=== PATIENT | female | born 1965 | race Caucasian/White ===

== ENCOUNTER 2019-07-12 21:23 | Observation (INO) ==
[2019-07-12] MEDS ORDERED: *HR* Dextrose 50 % in Water (Syg) 50 ML SYRINGE IVP PRN (23:48)
[2019-07-12] MEDS ORDERED: Dextrose Gel 15 GM/37.5 ML TUBE PO PRN ×2 (23:48)
--- NOTE | 2019-07-13 00:25 | Internal Med History&Physical ---
Date of Encounter: 07/12/19 Time of Encounter: 23:59 Internal Medicine - H&P: HPI Chief complaint: ams Admitted From: Hospital to Hospital Transfer Plans for Post Hospital Care: at Medical Facility History of present illness: Information obtained from chart review and discussion with the initial healthcare provider as the patient is unresponsive and there are no family members present at this time. Belinda Pisano is a 53-year-old obese woman diabetes who was taken to [facility] emergency room for altered mental status. It is reported that a neighbor called EMS after noticing the patients sitting outside on her porch and just staring blankly into space. Apparently she was able to articulate that she did not feel well to the squad. Glycemia at that time was 110. No other complaints were giv en. On arrival to the ER she apparently looked well but was staring blankly and had a sluggish response. She was able to follow commands to squeeze fingers and wiggle her toes and could lift her arms and legs off the bed. She was unable to state what problem she was having however. Her mother arrived shortly after who mentioned that she has a complex regional pain syndrome and diabetes but no other healthcare issues that she was aware of. The patient arrived here as a Caitlin Albright therefore her chart is different from the current one which is only been established after obtaining her name. Her lab work and medical report is in the previous chart with . Lab work done there was grossly unremarkable except a leukocyte count of 13.1. Her ABG was within normal limits per carb year or hypoxia. Serum chemistry was notable for serum creatinine of 2.68 which on review of old records is seen to be an elevation from her baseline. Her LFTs, serum troponin, creatinine kinase, ammonia and glucose were within normal limits. Her urine analysis was benign and toxicology screen was negative. Head CT showed no acute findings and her chest x-ray was clear. She was transferred here for ongoing care. At the time of my assessment she is sleeping in bed and not responsive. She opens her eyes spontaneously without stimuli and moans when palpated firmly but otherwise does not talk or follow commands. Vitals: Reviewed and seen to be within normal limits General: Obese white woman lying in bed in no acute distress. Skin: Warm and dry. HEENT: Dry mucous membranes. No conjunctivae pallor. Neck: No lymphadenopathy. No JVD. No carotid bruits. No palpable thyroid. Chest: Normal thoracic expansion. Normal breath sounds. Clear to auscultation. Heart: Normal S1 & S2; rhythmic. Grade 4/6 crescendo decrescendo systolic murmur in the right upper sternal border. Abdomen: Obese, soft and no apparent tenderness to palpation. Extremities: No clubbing, cyanosis or edema. No calf tenderness. Normal distal pulses. Neurological: Unresponsive. Unable to assess for focal deficits. Psych: Unresponsive. Assessment/Plan 1. Altered mental status: The etiology is unclear. We have ruled out a toxic metabolic syndrome based on labs obtained thus far. No evidence of hypercarbia or hypoxia. Unclear if she has suffered a cerebrovascular event or if this is a seizure disorder with a post-ictal state or if this is a psychiatric problem. It is unclear what home medications she takes as this could be a hopeful component. We will continue to observe her and monitor her clinically. Place on fall and seizure precautions. We will obtain a brain MRI in the morning and neurology consultation for further recommendations. When mother comes in the morning, further history should be obtained. 2. Acute kidney injury: Fluid resuscitation has been started and will recheck BMP in the morning. She appears dry on physical exam. 3. Systolic murmur: We will obtain an echo for evaluation of the degree of aortic valve stenosis. 4. Diabetes: She has very poor control with an A1C of 11.5% in January of this year. She will remain on Accu-Cheks with insulin sliding scale. 5. Obesity: She has evidence of SANDI as I note her snoring and apneic episodes. She will benefit from weight loss. Unclear if she uses CPAP at home. Past Med Surg Social Fam HX - Past Medical History Medical history: diabetes, hyperlipidemia, hypertension, seizures, other Additional medical history: CRPS Psychiatric history: depression - Past Surgical History Additional surgical history: Right wrist sx x 3. tubal ligation. heart cath no stents. left ulnar nerve release - Social History Smoking Status: Current every day smoker Smokeless Tobacco Status: No Alcohol use: none Drug use: none Internal Medicine - H&P: Meds Lisinopril [Zestril] 40 mg PO DAILY 08/27/15 [History] Metformin [Glucophage] 1,000 mg PO BID 08/27/15 [History] Ascorbate Calcium [Vitamin C] 500 mg PO DAILY 01/02/17 [History] Calcium Carbonate/Vitamin D3 [Calcium 600+D Softgel] 1 each PO DAILY 01/02/17 [History] Cholecalciferol (Vitamin D3) [Vitamin D] 50,000 unit PO TU 01/02/17 [History] Cinnamon Bark [Cinnamon] 500 mg PO BID 01/02/17 [History] [place]-3/Dha/Epa/Fish Oil [Fish Oil 1,000 mg Softgel] 1 each PO DAILY 01/02/17 [History] Topiramate [Topamax] 200 mg PO BID 01/02/17 [History] Vitamin B Complex [B Complex] 1 each PO DAILY 01/02/17 [History] Gabapentin [Neurontin] 800 mg PO TID 10/16/17 [History] Ketamine 500 mg IV 10/16/17 [History] Montelukast [Singulair] 10 mg PO DAILY 10/16/17 [History] OxyCODONE/APAP 10/325 [Percocet 10/325 MG] 1 each PO Q4HR PRN 10/16/17 [History] Exenatide Microspheres [Bydureon Pen] 0.75 mg SQ QWEEK 03/03/19 [History] Allergy/AdvReac Type Severity Reaction Status Date / Time bupropion [From Wellbutrin] AdvReac Seizure Verified 09/12/18 10:26 latex AdvReac See Verified 10/16/17 11:12 Comments All Systems PM: A 10-system review of systems was performed and is negative for pertinent findings except as documented above in the HPI. Family history unable to be obtained due to mental status. - Constitutional Vitals: Temp Pulse Resp BP Pulse Ox 97.7 F 72 17 104/67 95 07/12/19 23:58 07/12/19 23:58 07/12/19 23:58 07/12/19 23:58 07/12/19 23:58 Exam: . - Time Spent With Patient Total time spent is greater than 50% in coordination of care (as documented) at patient's floor/unit and/or counseling patient:
[2019-07-13] MEDS: Ringers Solution, Lactated 1,000 ML IVC SCH ×2 (01:43→07:19)
[2019-07-13] MEDS: Insulin LISPRO 300 UNITS/3 ML VIAL SQ SCH ×4 (01:46→18:05)
[2019-07-13 04:01] LABS: Basophils # 0.1 K/mcL (0.0-0.2); Basophils % 0.4 %; Eosinophils # 0.2 K/mcL (0.0-0.6); Eosinophils % 1.6 %; Hematocrit 38.8 % (35.3-44.9); Hemoglobin 12.5 g/dL (11.5-15.4); Immature Granulocytes % 0.5 % (0-4); Lymphocytes # 5.1 K/mcL (0.6-4.6); Lymphocytes % 39.7 %; Mean Corpuscular HGB Conc 32.2 g/dL (31.6-35.5); Mean Corpuscular Hemoglobin 28.9 pg (28.0-33.3); Mean Corpuscular Volume 89.8 fL (83.0-100.0); Mean Platelet Volume 10.1 fL (9.4-12.4); Monocytes # 0.6 K/mcL (0.0-1.3); Neutrophils # 6.8 K/mcL (1.6-8.9); Platelet Count 231 K/mcL (140-400); Red Blood Count 4.32 M/mcL (3.82-4.97); Red Cell Distribution Width 13.8 % (11.5-14.5); Segmented Neutrophils % 52.8 %; White Blood Count 12.9 K/mcL (4.3-11.1)
[2019-07-13 04:03] LABS: VBG HCO3 24 mEq/L (21-27); VBG PCO2 50 mmHg (41-51); VBG PO2 83 mmHg (25-50)
[2019-07-13 04:20] LABS: Calcium 9.2 mg/dL (8.6-10.3); Magnesium 1.6 mg/dL (1.6-2.6); Phosphorous 6.8 mg/dL (2.7-4.5); Potassium 4.4 mEq/L (3.5-5.1)
--- NOTE | 2019-07-13 09:10 | Internal Med Progress Note ---
Hospitalist Progress Note - Encounter Date of Encounter: 07/13/19 Time of Encounter: 09:09 - Subjective Interval History: Patient was seen and examined at bedside notified per nursing staff the patient had seizure-like activity this a.m. and was incontinent of stool patient does not appear to be post ictal she is able to open eyes and answer yes - Exam Vitals: Temp Pulse Resp BP Pulse Ox 97.8 F 69 20 122/74 94 07/13/19 08:26 07/13/19 08:26 07/13/19 08:26 07/13/19 08:26 07/13/19 08:26 Exam: Skin: Free of rash and discoloration. Eyes: Sclera is white. There is no discharge from eyes. ENMT: Oral/pharyngeal mucosa is normal in appearance. There is no discharge from nose or ears. Respiratory: Normal breath sounds with no crackles and wheezes bilaterally. CV: Heart is regular with no gallop or murmur. GI: Abdomen is flat and soft with no palpable mass or visceromegaly. : There is no tenderness in patient's flanks bilaterally. Neuro exam: Opens eyes to command and answers yes does not follow any other commands Psychiatric: Flat affect and makes brief eye contact - Assessment and Plan (1) Acute kidney injury superimposed on chronic kidney disease Current Visit: Yes Status: Acute Assessment and Plan: Creatinine elevated today at 3.45-she has a history CKG stage III Baseline creatinine is around 1.3- suspect this is secondary to dehydration we will continue with IV fluids Nephrology has been consulted and appreciate recommendations We will obtain renal ultrasound Monitor intake and output daily weights Avoid nephrotoxins (2) Diabetes mellitus Current Visit: No Status: Chronic Assessment and Plan: Accu-Cheks before meals and at bedtime with sliding scale insulin and hold oral medications for now monitor glucose closely (3) Encephalopathy Current Visit: Yes Status: Acute Assessment and Plan: Suspect this may be medical and etiology -multifactoral including AK I polypharmacy seizures. Patient did have a urine tox screen which was negative-we will check serum as well as dopamine levels patient is on high dose and the Topamax We will obtain MRI as well as EEG CT of head was negative Urinalysis Nephrology has been consulted and we will continue with IV fluids Allergies has been consulted and appreciate recommendations (4) Hyperphosphatemia Current Visit: Yes Status: Acute Assessment and Plan: We will continue to monitor (5) Hypertension Current Visit: Yes Status: Acute Assessment and Plan: Allow permissive hypertension for possible CVA-hold antihypertensives for now continue with IV fluids (6) Seizure Current Visit: Yes Status: Acute Assessment and Plan: Patient does have a history of seizure activity on Topamax we will check Topimate level Seizure precautions EEG MRI Neurology consulted - Time Spent with Patient Total time spent is greater than 50% in coordination of care (as documented) at patient's floor/unit and/or counseling patient: Internal Medicine: Result - Labs CBC & Chem 7: 07/13/19 03:50 07/13/19 03:50 Labs: Short CBC 07/13/19 Range/Units 03:50 WBC 12.9 H (4.3-11.1) K/mcL Hgb 12.5 (11.5-15.4) g/dL Hct 38.8 (35.3-44.9) % Plt Count 231 (140-400) K/mcL Neutrophils # 6.8 (1.6-8.9) K/mcL BMP 07/13/19 03:50 Sodium 141 Potassium 4.4 Chloride 106 Carbon Dioxide 24 BUN 40 H Creatinine 3.45 H Glucose 94 Calcium 9.2 Consult Discharge Plan - Plan Referrals: Rajni Levy, MANAGER PRODUCT SUPPORT [Primary Care Provider] - (2) Diabetes mellitus Qualifiers: Diabetes mellitus type: type 2 Diabetes mellitus longterm insulin use: without intermediate designer use Diabetes mellitus complication status: with kidney complications Diabetes mellitus complication detail: with chronic kidney disease (5) Hypertension Qualifiers: Hypertension type: essential hypertension Qualified Code(s): I10 - Essential (primary) hypertension
[2019-07-13 09:41] LABS: Thyroid Stimulating Hormone 2.62 mcIU/mL (0.340-5.600)
--- NOTE | 2019-07-13 10:16 | Nephrology Consult Note ---
Date of Encounter: 07/13/19 Time of Encounter: 10:14 Assessment and Plan (1) Acute kidney injury superimposed on chronic kidney disease Current Visit: Yes Status: Acute Patient has acute kidney injury superimposed on chronic kidney disease. Etiology is not clear as we do not have a history, but is likely volume related. I agree with aggressive hydration. I recommend checking a creatinine kinase to ensure that she does not have rhabdomyolysis. Renal ultrasound has been ordered. Serologic workup has been ordered as well as a urinalysis. At the time my evaluation she does not need dialysis. She does not have an anion gap. I recommend avoiding nephrotoxic agents and adjusting medication for renal function. Thank you for this interesting consult we will follow with you. (2) Encephalopathy Current Visit: Yes Status: Acute Etiology is unclear. Primary team has ordered a neurology consult. Additional workup to evaluate for other etiologies has also been ordered. Patient does have a history of seizures and it is possible that she had a seizure that was prolonged. If a drug test has not been performed and I recommend performing those as well. (3) Hyperphosphatemia Current Visit: Yes Status: Acute Monitor for now. (4) Diabetes mellitus Current Visit: Yes Status: Acute Defer to primary team. It appears that her previous hemoglobin A1c was elevated. Qualifiers: Qualified Code(s): E11.9 - Type 2 diabetes mellitus without complications (5) Hypertension Current Visit: Yes Status: Acute Titrate blood pressure medication as needed. Qualifiers: Qualified Code(s): I10 - Essential (primary) hypertension (6) Seizure Current Visit: Yes Status: Acute Per primary team and neurology. History of Present Illness - Reason for Consult Consult date: 07/13/19 Acute Kidney Injury, Chronic Kidney Disease - Chief Complaint anatoliy/ckd - History of Present Illness Ms. Pisano is a 53 -year-old woman with a history of chronic kidney disease who presented as a Caitlin Albright and was down. Later she was identified by family member. At the time my evaluation the patient only responds "yeah" to questions. Her review of systems is unobtainable.. When I asked him to take a deep breath she will follow the command. For additional details about her admission please refer to the admission H&P as the patient is unable to provide any additional history. Past Med Surg Social Fam HX - Past Medical History Medical history: diabetes, hyperlipidemia, hypertension, seizures, other Additional medical history: CRPS Psychiatric history: depression - Past Surgical History Additional surgical history: Right wrist sx x 3. tubal ligation. heart cath no stents. left ulnar nerve release - Social History Smoking Status: Current every day smoker Smokeless Tobacco Status: No Alcohol use: none Drug use: none Medications and Allergies Lisinopril [Zestril] 40 mg PO DAILY 08/27/15 [History] Metformin [Glucophage] 1,000 mg PO BID 08/27/15 [History] Ascorbate Calcium [Vitamin C] 500 mg PO DAILY 01/02/17 [History] Calcium Carbonate/Vitamin D3 [Calcium 600+D Softgel] 1 each PO DAILY 01/02/17 [History] Cholecalciferol (Vitamin D3) [Vitamin D] 50,000 unit PO TU 01/02/17 [History] Cinnamon Bark [Cinnamon] 500 mg PO BID 01/02/17 [History] [place]-3/Dha/Epa/Fish Oil [Fish Oil 1,000 mg Softgel] 1 each PO DAILY 01/02/17 [History] Topiramate [Topamax] 200 mg PO BID 01/02/17 [History] Vitamin B Complex [B Complex] 1 each PO DAILY 01/02/17 [History] Gabapentin [Neurontin] 800 mg PO TID 10/16/17 [History] Ketamine 500 mg IV 10/16/17 [History] Montelukast [Singulair] 10 mg PO DAILY 10/16/17 [History] OxyCODONE/APAP 10/325 [Percocet 10/325 MG] 1 each PO Q4HR PRN 10/16/17 [History] Exenatide Microspheres [Bydureon Pen] 0.75 mg SQ QWEEK 03/03/19 [History] Allergy/AdvReac Type Severity Reaction Status Date / Time bupropion [From Wellbutrin] AdvReac Seizure Verified 09/12/18 10:26 latex AdvReac See Verified 10/16/17 11:12 Comments Review of Systems ROS unobtainable: due to mental status Exam - Vital Signs Vital signs: Initial Vital Signs Temp Pulse Resp BP Pulse Ox 97.7 F 72 17 104/67 95 07/12/19 23:58 07/12/19 23:58 07/12/19 23:58 07/12/19 23:58 07/12/19 23:58 Vital Signs - Last 8 Hours Temp Pulse Resp BP Pulse Ox 07/13/19 08:26 97.8 F 69 20 122/74 94 07/13/19 06:34 98.6 F 75 18 101/71 98 07/13/19 03:19 98.1 F 72 16 99/64 97 Intake and Output 07/12/19 07/13/19 07/13/19 23:59 07:59 15:59 Intake Total 1000 / 1000 Balance 1000 / 1000 Intake: IV Fluids 1000 / 1000 Lactated Ringers 1,000 ML @ 200 1000 / 1000 mls/hr IVC .Q5H [facility] Rx#: [id number] Other: Stool Size Small Stool Consistency soft Stool Color Brown # Bowel Movements 1 Weight 125 kg 125 kg Blood Glucose* 111 119 Patient Weight 07/13/19 23:59 Weight 125 kg - General Appearance General appearance: well-developed, well-nourished, obese EENT: ATNC Neck: supple Respiratory: clear Cardiology: no edema, regular rate Gastrointestinal: no tenderness, obese Integumentary: warm and dry Additional Comments: She only responds "yeah" to my questions Musculoskeletal: no cyanosis Psychiatric: mood/affect appropriate Results - Lab Results 07/13/19 03:50 07/13/19 03:50 Most recent lab results 07/13/19 07/13/19 03:50 03:50 Calcium 9.2 Phosphorus 6.8 H Magnesium 1.6 Consult Discharge Plan - Plan Referrals: Rajni Levy, COMPACTING MACHINE OPERATOR/TENDER [Primary Care Provider] -
[2019-07-13 10:27] LABS: ABG Base Excess -2 mEq/L (-2 to 3); ABG HCO3 24 mEq/L (21-27); ABG Oxygen Saturation 95 % (95-98); ABG PCO2 45 mmHg (35-45); ABG PH 7.33 pH Units (7.32-7.45); ABG PO2 82 mmHg (85-104); ABG TCO2 26 mEq/L (20-26)
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
[2019-07-13] MEDS: Aspirin 81 MG TAB.CHEW PO SCH (18:04)
[2019-07-14 02:33] LABS: Complement C3 164 mg/dL (87-200)
[2019-07-14] MEDS: Insulin LISPRO 300 UNITS/3 ML VIAL SQ SCH ×5 (04:52→23:57)
[2019-07-14] MEDS: Aspirin 81 MG TAB.CHEW PO SCH (08:11)
[2019-07-14 08:23] LABS: Estimated Average Glucose 169 mg/dl
--- NOTE | 2019-07-14 08:25 | Neurology Progress Note ---
Date of Encounter: 07/14/19 Time of Encounter: 11:03 Assessment and Plan (1) Encephalopathy Current Visit: Yes Status: Acute Resolved. Likely related to encephalopathy secondary to medical conditions, especially acute renal failure, may have also underlying depression and is currently on polypharmacy including psychotrophic medications and pain meds. - Neurological examination not consistent with acute FLAT HAMMERER pathology. - Does have seizure disorder for few years and could have postictal pehnomenon however, presentation not typical for postictal phenomenon which usually do not last more than 30 minutes. - Would like to obtain MRI of brain and TIA/CVA work up, including echo and carotid artery duplex study. - Patient hyperglycemia which can increase the risk of microembolic CVA/partial seizures. - Continue aspirin 81mg daily for now Further recommendations pending per results of MRI and EEG. Suspect that her symptoms are more likely due to metabolic process, possible acute renal failure. If she continues to demonstrate epileptiform activity, can consider depakote change of medication, however given that this is not as likely contributing, recommend continuing home topiramate and follow up with outpatient neurologist. (2) Seizure Current Visit: Yes Status: Chronic Known history of seizure occurred during 2015. Etiology unclear. Last seziure of June 2018. Been taking Topiramate high dose at 300mg bid and still has seizures. Reports increased dose to TID starting on Sunday prior to admission. This can be aggravated by ongoing hyperglycemia and renal failure. Patient also take lyrica 100mg bid which is also antiepileptic. Would like to continue on the combination and obtain EEG, MRI of brain without contrast and topiramate level. Please continue medical and supportive care Subjective Principal diagnosis: Altered mental status Interval history: Patient was seen and examined at bedside this morning. She reports that she is feeling much better. She still does not remember the events leading up to admission. She states that she was feeling well prior to admission and has never had this before. She does have a history of seizures but states this is different. Recent medication change of increasing topiramate on day of admission. Chronic pain on percocet and lyrica. Objective - Constitutional Vitals: Temp Pulse Resp BP Pulse Ox 98.2 F 79 15 107/71 96 07/14/19 07:13 07/14/19 07:13 07/14/19 07:13 07/14/19 07:13 07/14/19 07:13 General appearance: Present: cooperative, A&O X 3, pleasant, no acute distress - Neurological Exam Sensorimotor examination: Present: intact Motor Examination: Present: grossly full strength in all extremities Sensation intact: Present: intact Posture: Present: other (None) Reflex and gait examination: other (Gait not tested) Mental Status Examination: Present: awake, alert, oriented to person, oriented to place, oriented to time, follows commands appropriately, answers questions appropriately, no agnosia, no aphasia, no aproxia Cranial nerve examination: Present: PERRL, EOMI, corneal reflexes brisk symmetrically, sensory to face intact, no facial asymmetry is present, no dysarthria, hearing is intact symmetrically, flexes SCM and trapezius muscles symmetrically with full power, tongue protrudes midline Cerebellar examination: Present: no dysmetria, performs finger to nose and heel to french symmetrically without ataxia Results - Laboratory Findings CBC and BMP: 07/14/19 08:28 07/14/19 08:28 Abnormal lab findings: Abnormal lab results WBC 12.9 K/mcL (4.3-11.1) H 07/13/19 03:50 Lymphocytes # 5.1 K/mcL (0.6-4.6) H 07/13/19 03:50 ABG pO2 82 mmHg (85-104) L 07/13/19 10:22 VBG pH 7.30 pH Units (7.32-7.42) L 07/13/19 04:01 VBG pO2 83 mmHg (25-50) H 07/13/19 04:01 BUN 40 mg/dL (6-20) H 07/13/19 03:50 Creatinine 3.45 mg/dL (0.60-1.20) H 07/13/19 03:50 Est GFR ( Amer) 17 (> 60) L 07/13/19 03:50 Est GFR (Non-Af Amer) 14 (> 60) L 07/13/19 03:50 POC Glucose 138 mg/dL (70-99) H 07/14/19 05:56 Hemoglobin A1c 7.5 % (-5.6) H 07/14/19 01:42 Serum Osmolality 304 mOsm/kg (280-300) H 07/13/19 09:56 Calculated Osmolality 302 (280-300) H 07/13/19 03:50 Lactic Acid 2.4 mmol/L (0.5-2.2) H 07/13/19 09:56 Phosphorus 6.8 mg/dL (2.7-4.5) H 07/13/19 03:50 Creatine Kinase 914 Units/L (30-223) H 07/14/19 01:42 Vitamin B12 182 pg/mL (250-1100) L 07/13/19 09:56 Consult Discharge Plan - Plan Referrals: Rajni Levy CNP [Primary Care Provider] -
[2019-07-14 08:53] LABS: Basophils % 0.4 %; Eosinophils # 0.2 K/mcL (0.0-0.6); Eosinophils % 1.6 %; Hematocrit 39.3 % (35.3-44.9); Hemoglobin 12.6 g/dL (11.5-15.4); Immature Granulocytes % 0.4 % (0-4); Lymphocytes # 3.6 K/mcL (0.6-4.6); Lymphocytes % 33.8 %; Mean Corpuscular HGB Conc 32.1 g/dL (31.6-35.5); Mean Corpuscular Hemoglobin 28.6 pg (28.0-33.3); Mean Corpuscular Volume 89.1 fL (83.0-100.0); Monocytes # 0.6 K/mcL (0.0-1.3); Monocytes % 5.8 %; Neutrophils # 6.2 K/mcL (1.6-8.9); Platelet Count 232 K/mcL (140-400); Red Blood Count 4.41 M/mcL (3.82-4.97); Red Cell Distribution Width 13.5 % (11.5-14.5); White Blood Count 10.6 K/mcL (4.3-11.1)
[2019-07-14 09:11] LABS: Calcium 9.2 mg/dL (8.6-10.3); Potassium 4.2 mEq/L (3.5-5.1)
--- NOTE | 2019-07-14 09:27 | Nephrology Progress Note ---
Date of Encounter: 07/14/19 Time of Encounter: 08:50 (Time guessed) - Assessment and Plan (1) CKD (chronic kidney disease), stage III Current Visit: Yes Status: Acute (2) Metabolic acidosis Current Visit: Yes Status: Acute (3) Rhabdomyolysis Current Visit: Yes Status: Suspected (4) Acute kidney injury superimposed on chronic kidney disease Current Visit: Yes Status: Acute (5) Encephalopathy Current Visit: Yes Status: Acute (6) Hyperphosphatemia Current Visit: Yes Status: Acute (7) Seizure Current Visit: Yes Status: Chronic (8) Diabetes mellitus Current Visit: Yes Status: Chronic Qualifiers: Diabetes mellitus type: type 2 Diabetes mellitus nursing home insulin use: without nursing home use Diabetes mellitus complication status: with kidney complications Diabetes mellitus complication detail: with chronic kidney disease Qualified Code(s): E11.22 - Type 2 diabetes mellitus with diabetic chronic kidney disease Subjective Interval history: Subjective Some elements from chart review Ms. Phyllis Pisano is a 53-year-old female who presented to the [facility] ED on 07/13 for AMS. This ED encounter is under . Past medical history: CKD stage III, diabetes mellitus, she denies hypertension and does not know why she is on lisinopril, hyperlipidemia, seizure disorder, complex regional pain syndrome. The last thing she remembers before being in this hospital is opening her door at home and talking to and paying an acquaintance Pooja for clothes another various wares. Only medication change was a newly increased dose of topiramate which she took 3 times a day instead of 2 times a day prior to this episode. Renal history from the patient Has seen Dr. Comer since around [id number]. She was originally stage IV and more recently stage III. Tells me that they believe the cause of her chronic kidney disease was potentially Percocets or Lyrica. She has had diabetes since 2013. Denies using any other analgesics such as ibuprofen. She says that all she will take for additional pain is Tylenol and has not even used that recently. Denies recent antibiotic use. Mentions difficulty with urination in the past that has recently improved. Denies dialysis, kidney transplants. Has both her kidneys. Denies significant dehydration or change in activities. It was a usual morning for her. Intake: Estimates approximately 5-6 bottles of water per day plus one strawberry lemonade drink. Output: States she urinates a lot because of her water pill. Objective PE Gen.: Middle-aged female. No acute distress Skin: Good turgor Eyes: Moist. Anicteric Cardiac: S1, S2. At least 3/6 systolic murmur. Respiratory: Very diminished lung sounds. Crackles in the right base Abdomen: Not diffusely tender. Obese Extremities: Capillary refill less than 2 seconds bilateral upper extremities. Some swelling of right lower extremity which patient states is normal for her. Nonpitting bilaterally. Neuro: Alert to person, place, month and year. No obvious tremor. Psych: Answers questions coherently. Some anxiousness A/P #DAMEON Consider secondary to renal hypoperfusion. Doubt postrenal secondary to history. Complement 3 and 4 WNL on 07/14. Rheumatoid factor WNL on 07/14. Creatinine initially 2.68 > 3.45 from baseline of around 1.3. CK 07/14 914 -With fluid therapy creatinine has improved as of 07/14 -2 L isotonic saline -Renal ultrasound pending -Repeat urinalysis pending -Urine protein to creatinine ratio pending #Chronic kidney disease stage III GFR baseline in the low 40s -Estimated GFR 22 -Avoid nephrotoxins -Renal dosing of medications #High anion gap Metabolic Acidosis Consider secondary to elevated lactic acid Initial ABG showed CO2 46 and pH 7.33 with anion gap of 15. Suggested metabolic acidosis with concomitant metabolic alkalosis -Gap Resolved #Hyperphosphatemia Possibly some component of secondary hyperparathyroidism in the setting of CKD. Also consider rhabdomyolysis. Phosphorous 6.8 on 07/13 Calcium WNL 07/13 -Recheck phosphorus in the a.m. #Rhabdomyolysis Consider secondary to prolonged immobilization versus suspected seizure activity Received at least 2 L lactated Ringer's on 07/13 CK 914 on 07/14 -Increased phosphorus -Potassium WNL -Calcium WNL -2L isotonic saline -Recheck CK in the a.m. #Encephalopathy -Per primary and neuro #Seizure disorder -per primary and neuro #Diabetes -Per primary Objective - Vital Signs Vital signs: Vital Signs Temp Pulse Resp BP Pulse Ox 07/14/19 07:13 98.2 F 79 15 107/71 96 07/14/19 03:02 98.2 F 73 16 94/60 98 07/13/19 23:29 98.3 F 76 18 95/63 97 07/13/19 19:24 97.4 F L 76 16 104/63 96 07/13/19 16:20 98.0 F 78 20 107/77 95 07/13/19 11:37 97.8 F 80 18 96/62 97 Intake and Output 07/13/19 07/14/19 07/14/19 23:59 07:59 15:59 Intake Total 1000 / 2000 Output Total 400 / 400 Balance 1000 / 2000 -400 / -400 Intake: IV Fluids 1000 / 1999 Lactated Ringers 1,000 ML @ 200 1000 / 2000 mls/hr IVC .Q5H [facility] Rx#: [id number] Output: Urine 400 / 400 Other: # Voids 1 # Urine Diapers 2 # Bowel Movement Diapers 2 Weight 125 kg Blood Glucose* 103 138 Patient Weight 07/14/19 23:59 Weight 125 kg - Lab 07/14/19 08:28 07/14/19 08:28 Most recent lab results 07/14/19 08:28 Calcium 9.2 Consult Discharge Plan - Plan Referrals: Rajni Levy, TROUBLE OPERATOR [Primary Care Provider] -
--- NOTE | 2019-07-14 10:00 | Internal Med Progress Note ---
Hospitalist Progress Note - Encounter Date of Encounter: 07/14/19 Time of Encounter: 10:00 - Subjective Interval History: Patient was seen and examined at bedside currently she is sitting on the side the bed eating tolerating oral intake. She is alert and appropriate I update patient on her lab work patient is requesting that she be discharged by because she has an appointment with Dr. Arteaga and does not want to miss it. Explained to patient we are monitoring her closely and if her renal function improves or return back to baseline she will be discharged. No seizure activity noted - Exam Vitals: Temp Pulse Resp BP Pulse Ox 98.2 F 79 15 107/71 96 07/14/19 07:13 07/14/19 07:13 07/14/19 07:13 07/14/19 07:13 07/14/19 07:13 Exam: Skin: Free of rash and discoloration. Eyes: Sclera is white. There is no discharge from eyes. ENMT: Oral/pharyngeal mucosa is normal in appearance. There is no discharge from nose or ears. Respiratory: Normal breath sounds with no crackles and wheezes bilaterally. CV: Heart is regular with no gallop or murmur. GI: Abdomen is flat and soft with no palpable mass or visceromegaly. : There is no tenderness in patient's flanks bilaterally. Neuro exam: Alert and oriented following simple commands Psychiatric: Flat affect and makes brief eye contact - Assessment and Plan (1) Acute kidney injury superimposed on chronic kidney disease Current Visit: Yes Status: Acute Assessment and Plan: Creatinine elevated today at 3.45-she has a history CKG stage III Baseline creatinine is around 1.3- suspect this is secondary to dehydration we will continue with IV fluids Nephrology has been consulted and appreciate recommendations We will obtain renal ultrasound Monitor intake and output daily weights Avoid nephrotoxins 07/14 Creatinine is improving today down to 2.45 we will continue with IV hydration Nephrology has been consulted and appreciate recommendations We will avoid nephrotoxins Monitor intake output renal ultrasound-was unremarkable (2) Diabetes mellitus Current Visit: Yes Status: Chronic Assessment and Plan: Accu-Cheks before meals and at bedtime with sliding scale insulin and hold oral medications for now monitor glucose closely 07/14 Patient is refusing insulin-told nursing staff "do not wholehearted is to get a job when you are on insulin "attempted to educate patient that this is not permanent encourage patient to take insulin (3) Encephalopathy Current Visit: Yes Status: Acute Assessment and Plan: Suspect this may be medical and etiology -multifactoral including AK I polypharmacy seizures. Patient did have a urine tox screen which was negative-we will check serum as well as dopamine levels patient is on high dose and the Topamax We will obtain MRI as well as EEG CT of head was negative Urinalysis Nephrology has been consulted and we will continue with IV fluids Allergies has been consulted and appreciate recommendations 07/14 This appears to be improving-patient has been in creasing her Topiramate 100 mg 3 times a day for total 300 mg daily she states after she increased her Tepperman became very tired and normally she just sleeps it off and then she does not recall any events afterwards. Neurology has been consulted recommending resuming Topiramate may 100 mg twice a day for now EEG is pending CT of head was negative MRI with no acute intracranial on normalities Continue with IV fluids -Suspect the combination of polypharmacy as well as AK I, possible seizures has contributed altered mental state (4) Hyperphosphatemia Current Visit: Yes Status: Acute Assessment and Plan: We will continue to monitor (5) Hypertension Current Visit: Yes Status: Acute Assessment and Plan: Currently stable we will continue to monitor closely (6) Seizure Current Visit: Yes Status: Chronic Assessment and Plan: Patient does have a history of seizure activity on Topamax we will check Topimate level Seizure precautions EEG MRI-MRI with nothing acute Neurology consulted-recommending to resume Topiramate 100 BID (7) Rhabdomyolysis Current Visit: Yes Status: Suspected Assessment and Plan: She did have a slight elevation and her [id number] suspect this is secondary to possible seizure activity and immobility we will continue to monitor - Time Spent with Patient Total time spent is greater than 50% in coordination of care (as documented) at patient's floor/unit and/or counseling patient: Internal Medicine: Result - Labs CBC & Chem 7: 07/14/19 08:28 07/14/19 08:28 Labs: Short CBC 07/14/19 Range/Units 08:28 WBC 10.6 (4.3-11.1) K/mcL Hgb 12.6 (11.5-15.4) g/dL Hct 39.3 (35.3-44.9) % Plt Count 232 (140-400) K/mcL Neutrophils # 6.2 (1.6-8.9) K/mcL BMP 07/14/19 08:28 Sodium 139 Potassium 4.2 Chloride 101 Carbon Dioxide 27 BUN 37 H Creatinine 2.34 H Glucose 134 H Calcium 9.2 - ABG Interpretation ABG results: ABG ABG pH 7.33 pH Units (7.32-7.45) 07/13/19 10:22 ABG pCO2 45 mmHg (35-45) 07/13/19 10:22 ABG pO2 82 mmHg (85-104) L 07/13/19 10:22 ABG O2 Saturation 95 % (95-98) 07/13/19 10:22 Consult Discharge Plan - Plan Referrals: Rajni Levy CNP [Primary Care Provider] - 07/21/19 3:15 pm (2) Diabetes mellitus Qualifiers: Diabetes mellitus type: type 2 Diabetes mellitus snf insulin use: without snf use Diabetes mellitus complication status: with kidney complications Diabetes mellitus complication detail: with chronic kidney disease Chronic kidney disease stage: stage 3 (moderate) Qualified Code(s): E11.22 - Type 2 diabetes mellitus with diabetic chronic kidney disease; N18.3 - Chronic kidney disease, stage 3 (moderate) (5) Hypertension Qualifiers: Hypertension type: essential hypertension Qualified Code(s): I10 - Essential (primary) hypertension (7) Rhabdomyolysis Qualifiers: Qualified Code(s): M62.82 - Rhabdomyolysis
--- NOTE | 2019-07-14 10:28 | Nephrology Progress Note ---
Date of Encounter: 07/14/19 Time of Encounter: 10:25 - Assessment and Plan (1) Acute kidney injury superimposed on chronic kidney disease Current Visit: Yes Status: Acute Patient has acute kidney injury superimposed on chronic kidney disease. Etiology is not clear as we do not have a history, but is likely volume related. I agree with aggressive hydration as the patient has rhabdomyolysis. . Renal ultrasound has been ordered. Serologic workup has been ordered as well as a urinalysis. At the time my evaluation she does not need dialysis. She does not have an anion gap. I recommend avoiding nephrotoxic agents and adjusting medication for renal function. (2) Encephalopathy Current Visit: Yes Status: Acute Etiology is unclear. Primary team has ordered a neurology consult. Additional workup to evaluate for other etiologies has also been ordered. Patient does have a history of seizures and it is possible that she had a seizure that was prolonged. If a drug test has not been performed and I recommend performing those as well. EEG is being performed. (3) Hyperphosphatemia Current Visit: Yes Status: Acute (4) Hypertension Current Visit: Yes Status: Acute Titrate blood pressure medication as needed. Qualifiers: Qualified Code(s): I10 - Essential (primary) hypertension (5) Seizure Current Visit: Yes Status: Acute Subjective Principal diagnosis: anatoliy Interval history: The patient was seen. She has no new complaint. She feels much better. She seems to be oriented today. She is about to get an EEG. Objective - Vital Signs Vital signs: Vital Signs Temp Pulse Resp BP Pulse Ox 07/14/19 07:13 98.2 F 79 15 107/71 96 07/14/19 03:02 98.2 F 73 16 94/60 98 07/13/19 23:29 98.3 F 76 18 95/63 97 07/13/19 19:24 97.4 F L 76 16 104/63 96 07/13/19 16:20 98.0 F 78 20 107/77 95 07/13/19 11:37 97.8 F 80 18 96/62 97 Intake and Output 07/13/19 07/14/19 07/14/19 23:59 07:59 15:59 Intake Total 1000 / 2000 Output Total 400 / 400 Balance 1000 / 1999 -400 / -400 Intake: IV Fluids 1000 / 1999 Lactated Ringers 1,000 ML @ 200 1000 / 2000 mls/hr IVC .Q5H [facility] Rx#: [id number] Output: Urine 400 / 400 Other: # Voids 1 # Urine Diapers 2 # Bowel Movement Diapers 2 Weight 125 kg Blood Glucose* 103 138 Patient Weight 07/14/19 23:59 Weight 125 kg - General Appearance General appearance: Present: well-developed, well-nourished, obese EENT: Present: ATNC Neck: Present: supple Cardiology: Present: regular rate Gastrointestinal: Present: obese Neurologic: Present: alert and oriented x3 Musculoskeletal: Present: no cyanosis Psychiatric: Present: mood/affect appropriate - Lab 07/14/19 08:28 07/14/19 08:28 Most recent lab results 07/14/19 08:28 Calcium 9.2 Consult Discharge Plan - Plan Referrals: Rajni Levy [employer] [Primary Care Provider] -
[2019-07-14] MEDS: 0.9 % Sodium Chloride 2,000 ML IVC SCH (11:00)
[2019-07-14 11:21] LABS: Bilirubin,Urine Negative (Negative); Blood,Urine Small (Negative); Clarity,Urine Cloudy (Clear); Color,Urine Yellow (Yellow); Glucose,Urine (UA) Normal (Normal); Ketones,Urine Negative (Negative); Leukocyte Esterase,Urine Small (Negative); Nitrite,Urine Positive (Negative); Protein,Urine 30 mg/dL (Neg-Trace); Specific Gravity,Urine 1.017 (1.010-1.025); Urobilinogen,Urine Normal (Normal)
[2019-07-14 11:25] LABS: Bacteria,Urine Many per hpf (None-Few); Hyaline Casts,Urine None Seen per lpf (None-Few); RBC,Urine 0-3 per hpf (0-3); Squamous Epithelial Cell,Urine Many per lpf (None-Few); WBC,Urine 15-30 per hpf (0-3)
[2019-07-14 11:33] LABS: Protein/Creatinine Ratio,Urine 0.32 mg/mg (0.00-0.20)
[2019-07-14 11:50] LABS: Amphetamine Screen,Urine Negative ng/mL (Cutoff=1000); Barbiturate Screen,Urine Negative ng/mL (Cutoff=200); Benzodiazepines Screen,Urine Negative ng/mL (Cutoff=200); Cannabinoid Screen,Urine Negative ng/mL (Cutoff = 50); Cocaine Screen,Urine Negative ng/mL (Cutoff= 300); Opiate Screen,Urine Negative ng/mL (Cutoff=300); Phencyclidine Screen,Urine Negative ng/mL (Cutoff=25)
--- NOTE | 2019-07-14 14:47 | EEG/EMG/Oth Biometrics Report ---
EEG Procedure Report Date of procedure: 07/14/19 EEG Procedure: Routine EEG Procedure Note: Medication: Topiramate. Report: This EEG was acquired with standard international 10-20 electrode placement system with EKG recording. The Background activity during this EEG was characterized by the presence of posterior dominant alpha rhythm with best frequency up to 10 Hz. The background activity was reactive to eye openings. Sleep stages were characterized by presence of Vertex waves, K-complexes and sleep spindles. There are no electrographic seizures identified during this tracing. There are however, intermittent, synchronous, high amplitude spike/polyspike/slow wave occurring during light sleep. no focal slowing noted during this recording. Photic stimulation produced no abnormalities. HV not performed during this study. EKG tracing showed no significant cardiac dysarrhythmia. Impression: This is an abnormal EEG due to presence of intermittent, synchronous high amplitude spike/polyspike-slow wave activity during light sleep. Clinical Correlation: This EEG showed abnormal findings that may suggest increased susceptibility for a generalized seizure disorder. This could be seen as an interictal phenomenon in patients with generalized epilepsy. Clinical correlation is advised.
[2019-07-14] MEDS: Topiramate 100 MG TABLET PO SCH ×2 (17:45→22:20)
[2019-07-14] MEDS: Pregabalin 50 MG CAPSULE PO SCH (22:19)
[2019-07-15] MEDS: 0.9 % Sodium Chloride 2,000 ML IVC SCH ×2 (02:54→10:48)
[2019-07-15 03:04] VITALS: BP 113/81
[2019-07-15] MEDS ORDERED: Acetaminophen 325 MG TABLET PO ONE (04:41)
[2019-07-15] MEDS: Insulin LISPRO 300 UNITS/3 ML VIAL SQ SCH ×2 (05:01→12:09)
[2019-07-15 06:04] LABS: Basophils % 0.4 %; Eosinophils # 0.2 K/mcL (0.0-0.6); Eosinophils % 1.9 %; Hematocrit 36.1 % (35.3-44.9); Hemoglobin 11.6 g/dL (11.5-15.4); Immature Granulocytes % 0.6 % (0-4); Lymphocytes # 3.5 K/mcL (0.6-4.6); Lymphocytes % 38.6 %; Mean Corpuscular HGB Conc 32.1 g/dL (31.6-35.5); Mean Corpuscular Hemoglobin 28.8 pg (28.0-33.3); Mean Corpuscular Volume 89.6 fL (83.0-100.0); Mean Platelet Volume 10.1 fL (9.4-12.4); Monocytes # 0.6 K/mcL (0.0-1.3); Monocytes % 6.1 %; Neutrophils # 4.8 K/mcL (1.6-8.9); Platelet Count 203 K/mcL (140-400); Red Blood Count 4.03 M/mcL (3.82-4.97); Red Cell Distribution Width 13.2 % (11.5-14.5); Segmented Neutrophils % 52.4 %; White Blood Count 9.1 K/mcL (4.3-11.1)
[2019-07-15 06:25] LABS: Calcium 9.2 mg/dL (8.6-10.3); Potassium 4.2 mEq/L (3.5-5.1)
--- NOTE | 2019-07-15 06:28 | Nephrology Progress Note ---
Date of Encounter: 07/15/19 Time of Encounter: 06:50 (guessed) - Assessment and Plan (1) CKD (chronic kidney disease), stage III Current Visit: Yes Status: Acute (2) Metabolic acidosis Current Visit: Yes Status: Acute (3) Rhabdomyolysis Current Visit: Yes Status: Suspected Qualifiers: Qualified Code(s): M62.82 - Rhabdomyolysis (4) Acute kidney injury superimposed on chronic kidney disease Current Visit: Yes Status: Acute (5) Encephalopathy Current Visit: Yes Status: Acute (6) Hyperphosphatemia Current Visit: Yes Status: Acute (7) Seizure Current Visit: Yes Status: Chronic (8) Diabetes mellitus Current Visit: Yes Status: Chronic Qualifiers: Diabetes mellitus type: type 2 Diabetes mellitus assistant terminal manager insulin use: without assistant terminal manager use Diabetes mellitus complication status: with kidney complications Diabetes mellitus complication detail: with chronic kidney disease Chronic kidney disease stage: stage 3 (moderate) Qualified Code(s): E11.22 - Type 2 diabetes mellitus with diabetic chronic kidney disease; N18.3 - Chronic kidney disease, stage 3 (moderate) (9) UTI (urinary tract infection) Current Visit: Yes Status: Acute Qualifiers: Qualified Code(s): N39.0 - Urinary tract infection, site not specified; R31.9 - Hematuria, unspecified Subjective Principal diagnosis: Altered mental status Interval history: Subjective Patient feels better overall but still not well. Her hips are hurting. Her chronic regional pain syndrome is acting up. She agrees she is urinating okay. Objective PE Gen.: Middle-aged female. No acute distress Skin: Good turgor Eyes: Moist. Anicteric Cardiac: At least 3/6 systolic murmur best heard over aortic and pulmonic posts that radiates to bilateral carotid arteries Respiratory: Expiratory low wheeze posterior upper right lung field. Very diminished lung sounds throughout. Extremities: Capillary refill less than 2 seconds bilateral upper extremities. Gross swelling of right lower extremity greater than the left which patient states is normal for her. Neuro: No obvious tremor Psych: Answers questions coherently. Appropriate mood. A/P #DAMEON Consider secondary to renal hypoperfusion. Doubt postrenal secondary to history. Complement 3 and 4 WNL on 07/14. Rheumatoid factor WNL on 07/14. Creatinine initially 2.68 > 3.45 from baseline of around 1.3. CK 07/14 914 Renal ultrasound unremarkable Repeat urinalysis significant for proteinuria, leukosuria, blood with no RBCs, leukocyte esterase, nitrites, many bacteria, likely contaminated. Urine protein to creatinine ratio 0.32 -Creatinine improving as of 07/15 -Nephrology will sign off. Thank you for the consult. Please reconsult for any additional questions, concerns, or studies needed. #Chronic kidney disease stage III GFR baseline in the low 40s -Estimated GFR 28 -Avoid nephrotoxins -Renal dosing of medications #High anion gap Metabolic Acidosis Consider secondary to elevated lactic acid Initial ABG showed CO2 46 and pH 7.33 with anion gap of 15. Suggested metabolic acidosis with concomitant metabolic alkalosis -Gap Resolved as of 07/15 #Hyperphosphatemia Possibly some component of secondary hyperparathyroidism in the setting of CKD. Also consider rhabdomyolysis. Phosphorous 6.8 on 07/13 Calcium WNL 07/13 -Phosphorous WNL 07/15 #Rhabdomyolysis Consider secondary to prolonged immobilization versus suspected seizure activity Received at least 2 L lactated Ringer's on 07/13 and additional 2 L normal saline CK 914 on 07/14 -Phosphorous WNL -Potassium WNL -Calcium WNL -CK trending down -Okay with additional 2 L normal saline. Spoke with the nursing staff to confirm. #UTI Urine culture 07/14 preliminary growing gram-negative rods. -Follow urine culture -Antibiotics per primary #Encephalopathy -Per primary and neuro #Seizure disorder -per primary and neuro #Diabetes -Per primary Objective - Vital Signs Vital signs: Vital Signs Temp Pulse Resp BP Pulse Ox 07/15/19 02:55 97.7 F 76 17 113/81 95 07/14/19 22:51 98.2 F 70 17 121/77 94 07/14/19 18:58 97.5 F L 76 16 137/85 98 07/14/19 15:11 97.7 F 57 16 136/80 97 07/14/19 07:13 98.2 F 79 15 107/71 96 Intake and Output 07/14/19 07/14/19 07/15/19 15:59 23:59 07:59 Intake Total 0 / 0 1999 Output Total 100 / 700 200 / 700 1100 / 1100 Balance -100 / -700 -200 / -700 900 / 900 Intake: IV Fluids 0 / 0 1999 0.9 % Sodium Chloride 2,000 ML 0 0 2000 / 2000 @ 125 mls/hr IVC .Q16H [facility] Rx#: [id number] Output: Urine 100 / 700 200 / 700 1100 / 1100 Other: Weight 125.7 kg Blood Glucose* 162 Patient Weight 07/15/19 23:59 Weight 125.7 kg - Lab 07/15/19 05:35 07/15/19 05:35 Most recent lab results 07/15/19 07/15/19 05:35 05:35 Calcium 9.2 Phosphorus 3.1 Consult Discharge Plan - Plan Referrals: Rajni Levy CNP [Primary Care Provider] - 07/21/19 3:15 pm
[2019-07-15] MEDS ORDERED: Aspirin Enteric Coated 81 MG Tablet PO SCH (09:00)
[2019-07-15] MEDS ORDERED: Ascorbic Acid 500 MG TABLET PO SCH (09:00)
[2019-07-15] MEDS ORDERED: NON-FORMULARY MEDICATION 1 EACH EACH (Omega-3/Dha/Epa/Fish Oil [Fish Oil 1,000 Mg Softgel] PO SCH (09:00)
[2019-07-15] MEDS: Pregabalin 50 MG CAPSULE PO SCH (09:14)
[2019-07-15] MEDS: Topiramate 100 MG TABLET PO SCH (09:14)
[2019-07-15] MEDS ORDERED: cefTRIAXone 1,000 MG in Water for inj. (sterile) 10 ML IVP SCH (09:26)
--- NOTE | 2019-07-15 12:30 | Neurology Progress Note ---
Date of Encounter: 07/15/19 Time of Encounter: 12:27 Assessment and Plan (1) Encephalopathy Current Visit: Yes Status: Acute Patient mental status significantly improved as her medical conditions improving. Her mental status returned back to normal. She has no focal neurological deficits. Please continue medical and supportive care (2) Seizure Current Visit: Yes Status: Chronic Patient's EEG demonstrated intermittent epileptiform discharges consistent with a generalized epilepsy. She is to continue topiramate 100 mg twice a day and follow-up in neurology in 2-3 weeks after discharge. Patient is to be discharged home from a neurology perspective. We will sign off at this time please call if there is any questions. Subjective Principal diagnosis: Altered mental status Interval history: Patient is seen and examined today at bedside. She is doing much better and her mental status essentially recovered to baseline condition. She has no recurrent staring spells or seizure like activity. She is restarted topiramate and reports no significant side effects. Objective - Constitutional Vitals: Temp Pulse Resp BP Pulse Ox 97.6 F 74 16 113/81 96 07/15/19 06:55 07/15/19 06:55 07/15/19 06:55 07/15/19 02:55 07/15/19 06:55 General appearance: Present: cooperative, A&O X 3, pleasant, no acute distress - Neurological Exam Sensorimotor examination: Present: intact Motor Examination: Present: grossly full strength in all extremities Motor examination - right side: 5/5: deltoids, biceps, triceps, wrist flexion, wrist extension, art gilder, hip flexors, tibialis Anterior, quadriceps, toe extension (EHL), plantarflexion Motor examination - left side: 5/5: deltoids, biceps, triceps, wrist flexion, wrist extension, hip flexors, art gilder, quadriceps, tibialis Anterior, toe extension (EHL), plantarflexion Sensation intact: Present: intact Posture: Present: other (None) Reflex and gait examination: other (Gait not tested) Reflexes: Biceps: 2+, Triceps: 2+, Brachioradialis: 2+, Patella: 2+, Achilles: 2+ Mental Status Examination: Present: awake, alert, oriented to person, oriented to place, oriented to time, follows commands appropriately, answers questions appropriately, no agnosia, no aphasia, no aproxia Cranial nerve examination: Present: PERRL, EOMI, corneal reflexes brisk symmetrically, sensory to face intact, no facial asymmetry is present, no dysarthria, hearing is intact symmetrically, flexes SCM and trapezius muscles symmetrically with full power, tongue protrudes midline Cerebellar examination: Present: no dysmetria, performs finger to nose and heel to french symmetrically without ataxia Results - Laboratory Findings CBC and BMP: 07/15/19 05:35 07/15/19 05:35 Abnormal lab findings: Abnormal lab results WBC 12.9 K/mcL (4.3-11.1) H 07/13/19 03:50 Lymphocytes # 5.1 K/mcL (0.6-4.6) H 07/13/19 03:50 ABG pO2 82 mmHg (85-104) L 07/13/19 10:22 VBG pH 7.30 pH Units (7.32-7.42) L 07/13/19 04:01 VBG pO2 83 mmHg (25-50) H 07/13/19 04:01 BUN 30 mg/dL (6-20) H 07/15/19 05:35 Creatinine 1.86 mg/dL (0.60-1.20) H 07/15/19 05:35 Est GFR ( Amer) 34 (> 60) L 07/15/19 05:35 Est GFR (Non-Af Amer) 28 (> 60) L 07/15/19 05:35 Glucose 157 mg/dL (70-105) H 07/15/19 05:35 POC Glucose 162 mg/dL (70-99) H 07/14/19 19:06 Hemoglobin A1c 7.5 % (-5.6) H 07/14/19 01:42 Serum Osmolality 304 mOsm/kg (280-300) H 07/13/19 09:56 Calculated Osmolality 302 (280-300) H 07/13/19 03:50 Lactic Acid 2.4 mmol/L (0.5-2.2) H 07/13/19 09:56 Phosphorus 6.8 mg/dL (2.7-4.5) H 07/13/19 03:50 Creatine Kinase 875 Units/L (30-223) H 07/15/19 05:35 Vitamin B12 210 pg/mL (250-1100) L 07/15/19 10:16 Urine Clarity Cloudy (Clear) A 07/14/19 11:02 Urine Protein 30 mg/dL (Neg-Trace) H 07/14/19 11:02 Urine Blood Small (Negative) H 07/14/19 11:02 Urine Nitrite Positive (Negative) A 07/14/19 11:02 Ur Leukocyte Esterase Small (Negative) H 07/14/19 11:02 Urine Microscopic WBC 15-30 per hpf (0-3) H 07/14/19 11:02 Ur Squamous Epith Cells Many per lpf (None-Few) H 07/14/19 11:02 Urine Bacteria Many per hpf (None-Few) H 07/14/19 11:02 Ur Culture Indicated? YES (NO) A 07/14/19 11:02 Protein/Creatinin Ratio 0.32 mg/mg (0.00-0.20) H 07/14/19 11:02 Urine Total Protein 42 mg/dL (1-14) H 07/14/19 11:02 Consult Discharge Plan - Plan Referrals: Rajni Levy, MOE [Primary Care Provider] - 07/21/19 3:15 pm
--- NOTE | 2019-07-15 14:51 | Discharge Summary ---
- NOTES TO OUTPATIENT PROVIDER Notes to Outpatient Provider: Presented with AK I will need to monitor chemistry as outpatient follow-up with nephrology in 2 months. Will need a follow-up with neurology recommending continuation of Toprimate 100 mg BID Orders not resulted at time of discharge: Pending orders 07/13/19 09:56 MPO/PR3 (ANCA) Antibodies DAILY Vitamin B1 (Thiamine) Whole Bl Routine 07/13/19 10:48 Drug Screen, Serum [Drug Screen 9 Reflex Conf Qnt] Routine 07/14/19 01:42 PAUL IgG SKY rflx IFA AM 0400 07/14/19 11:02 Culture,Urine [RM] Routine Date of Encounter: 07/15/19 Time of Encounter: 14:46 - Discharge Diagnosis (1) Acute kidney injury superimposed on chronic kidney disease Priority: Secondary Status: Acute (2) Diabetes mellitus Priority: Secondary Status: Chronic Qualifiers: Diabetes mellitus type: type 2 Diabetes mellitus assisted insulin use: without assisted use Diabetes mellitus complication status: with kidney complications Diabetes mellitus complication detail: with chronic kidney disease Chronic kidney disease stage: stage 3 (moderate) Qualified Code(s): E11.22 - Type 2 diabetes mellitus with diabetic chronic kidney disease; N18.3 - Chronic kidney disease, stage 3 (moderate) (3) Encephalopathy Priority: Primary Status: Acute (4) Hyperphosphatemia Priority: Secondary Status: Acute (5) Hypertension Priority: Secondary Status: Acute Qualifiers: Hypertension type: essential hypertension Qualified Code(s): I10 - [place] l (primary) hypertension (6) Seizure Priority: Secondary Status: Chronic (7) Rhabdomyolysis Priority: Secondary Status: Suspected Qualifiers: Qualified Code(s): M62.82 - Rhabdomyolysis Hospital course: Ms. Pisano is a 53 year old female medical history diabetes hyperlipidemia hypertension seizure disorder chronic kidney disease chronic regional pain syndrome type I depression obesity presented to [facility] ED she was found altered on her front porch by her neighbors EMS was notified upon arrival she was found blankly staring into space she was able to articulate that she did not feel well blood glucose at that time was 110. She was taken to outlying facility she was able to follow commands at that time however did not answer questions she was originally registered as a Caitlin Albright until her mother arrived and identified the patient. Lab work was completed which did show leukocytosis at 13.1 ABGs were within normal limits chemistry was completed which did show an elevated creatinine she does have history CK D however this was above her LFTs urine for nildanatjessica CKs ammonia and glucose were within normal limits. Urine tox screen was negative urinalysis did show some nitrates as well as Leukocyte esterase bacteria urine culture luminary did show gram-negative rods. She was initiated on Rocephin. Was given IV fluids and was transferred [facility] ED for further workup and evaluation. Upon arrival to the floor patient displayed seizure-like activity and was incontinent of stool. Her creatinine continued to elevate and nephrology was consulted. CK was also elevated she continued to receive aggressive hydration. MRI of head and brain was completed with no acute intracranial abnormality cardiac echo was completed EF of 60% patient was evaluated by neurology and EEG was completed which findings were suggestive of generalized seizure disorder. Ental state did not improve by the next day she was able states that she had been increasing her Topiramate up to 300 mg twice a day and she began to become sleepy and apparently went to her from port[place], neighbors. Neurology recommending inpatient continue with Topiramate 100 mg twice a day and to follow up with neurology. After aggressive IV hydration patient's creatinine slowly trended down as well as CK patient has been able tore a without any problems no neurological deficits patient has been advised to follow-up with nephrology in 2 months she will follow-up with her PCP in one week. We will monitor chemistry as outpatient-patient's Lyrica was decreased to 100 mg twice a day she is following up with her pain management doctor tomorrow. We will also discharge on Cefdinir for UTI She is hemodynamically stable at this time and is ready for discharge. - Time Spent with Patient Total time spent providing and/or coordinating discharge services: - Discharge Medications Prescriptions: New Topiramate [Topamax] 100 mg PO BID #60 tablet Cefdinir [Omnicef] 300 mg PO BID 4 Days #8 capsule Continued Vitamin B Complex [B Complex] 1 each PO DAILY [place]-3/Dha/Epa/Fish Oil [Fish Oil 1,000 mg Softgel] 2,000 mg PO DAILY Ascorbic Acid [Vitamin C] 1,000 mg PO DAILY Aspirin [Lo-Dose Aspirin EC] 81 mg PO DAILY Calcium Carbonate [Calcium] 600 mg PO BID Colesevelam HCl 1,875 mg PO BIDWM Dulaglutide [Trulicity] 1.5 mg SQ QWEEK Ferrous Sulfate [Iron] 325 mg PO DAILY glyBURIDE [GlyBURIDE] 2.5 mg PO DAILY Metformin HCl [Glucophage] 1,000 mg PO BIDWM Potassium Chloride [Klor-Con 10] 10 meq PO BID Pregabalin [Lyrica] 100 mg PO BID Sertraline [Zoloft] 50 mg PO DAILY Sertraline [Zoloft] 100 mg PO DAILY Montelukast [Singulair] 10 mg PO QPM Discontinued Topiramate [Topamax] 300 mg PO BID Furosemide [Lasix] 40 mg PO BID Lisinopril [Zestril] 5 mg PO HS No Action Mag Hydrox/Aluminum Hyd/Simeth [Antacid Anti-Gas Liquid] 10 ml PO QID PRN PRN Reason: GAS RELIEF Naloxegol Oxalate [Movantik] 25 mg PO QAM OxyCODONE/APAP 10/325 [Percocet 10/325 MG] 1 each PO Q4HR PRN PRN Reason: Pain Home Medications: [place]-3/Dha/Epa/Fish Oil [Fish Oil 1,000 mg Softgel] 2,000 mg PO DAILY 01/02/17 [History] Vitamin B Complex [B Complex] 1 each PO DAILY 01/02/17 [History] Montelukast [Singulair] 10 mg PO QPM 10/16/17 [History] OxyCODONE/APAP 10/325 [Percocet 10/325 MG] 1 each PO Q4HR PRN 10/16/17 [History] Ascorbic Acid [Vitamin C] 1,000 mg PO DAILY 07/13/19 [History] Aspirin [Lo-Dose Aspirin EC] 81 mg PO DAILY 07/13/19 [History] Calcium Carbonate [Calcium] 600 mg PO BID 07/13/19 [History] Colesevelam HCl 1,875 mg PO BIDWM 07/13/19 [History] Dulaglutide [Trulicity] 1.5 mg SQ QWEEK 07/13/19 [History] Ferrous Sulfate [Iron] 325 mg PO DAILY 07/13/19 [History] Mag Hydrox/Aluminum Hyd/Simeth [Antacid Anti-Gas Liquid] 10 ml PO QID PRN 07/13/19 [History] Metformin HCl [Glucophage] 1,000 mg PO BIDWM 07/13/19 [History] Naloxegol Oxalate [Movantik] 25 mg PO QAM 07/13/19 [History] Potassium Chloride [Klor-Con 10] 10 meq PO BID 07/13/19 [History] Pregabalin [Lyrica] 100 mg PO BID 07/13/19 [History] Sertraline [Zoloft] 50 mg PO DAILY 07/13/19 [History] Sertraline [Zoloft] 100 mg PO DAILY 07/13/19 [History] glyBURIDE [GlyBURIDE] 2.5 mg PO DAILY 07/13/19 [History] Cefdinir [Omnicef] 300 mg PO BID 4 Days #8 capsule 07/15/19 [Rx] Topiramate [Topamax] 100 mg PO BID #60 tablet 07/15/19 [Rx] Allergies/Adverse Reactions: Allergy/AdvReac Type Severity Reaction Status Date / Time bupropion [From Wellbutrin] AdvReac Seizure Verified 07/15/19 10:48 latex AdvReac See Verified 07/15/19 10:48 Comments Date of admission: 07/12/19 23:43 Primary care physician: Rajni Levy CNP Consults: 07/13/19 00:17 Consult to Neurology [CONS] Routine Consulting Provider: [facility] Reason for Consult: Unresponsiveness of unclear etiology. Call Completed: No 07/13/19 09:09 Consult to Nephrology [CONS] Routine Consulting Provider: [facility]PARG[facility]BROWN Reason for Consult: DAMEON Time Notified: 09:09 Call Completed: Yes 07/14/19 12:58 Consult to Interpret Exam [CONS] Routine Consulting Provider: Gopal Gonzalez Consult to Interpret Exam: Interpret EEG Discharging clinician: Mildred Padilla Anticipated date of discharge: 07/15/19 - Constitutional Vitals: Temp Pulse Resp BP Pulse Ox 97.6 F 74 16 113/81 96 07/15/19 06:55 07/15/19 06:55 07/15/19 06:55 07/15/19 02:55 07/15/19 06:55 Exam: Skin: Free of rash and discoloration. Eyes: Sclera is white. There is no discharge from eyes. ENMT: Oral/pharyngeal mucosa is normal in appearance. There is no discharge from nose or ears. Respiratory: Normal breath sounds with no crackles and wheezes bilaterally. CV: Heart is regular with no gallop or murmur. GI: Abdomen is flat and soft with no palpable mass or visceromegaly. : There is no tenderness in patient's flanks bilaterally. Neuro exam: Alert and oriented following simple commands Psychiatric: Flat affect and makes brief eye contact - Patient Status Disposition: Home, Self-Care Functional capacity at discharge: independent ambulation Overall status at discharge: patient is back to baseline - Ambulatory Orders Ambulatory Orders: Basic Metabolic Panel [CHEM] Time Frame: 07/21/19, Facility: [facility], Location: Lab - Discharge Instructions Follow Up With: Rajni Levy CNP [Primary Care Provider] - 07/21/19 3:15 pm Asia Reyes MD [Partnered Physician] - (appt requested. They will call you with appt.) Gopal Gonzalez MD [Partnered Physician] - (appt requested. They will call you with appt. ) - Diet and Activity Activity: increase activity as tolerated Diet: advance to your usual diet
[2019-07-16 10:38] LABS: ANA IgG by ELISA NONE DETECTED (None Detected)
[2019-07-16 10:45] LABS: Serine Protease-3 Antibody 2 AU/mL (0-19)
[2019-07-16 18:24] LABS: Amphetamines NEGATIVE ng/mL (Cutoff 30); Barbiturates NEGATIVE ng/mL (Cutoff 75); Benzodiazepines NEGATIVE ng/mL (Cutoff 75); Buprenorphine NEGATIVE ng/mL (Cutoff 1); Cocaine NEGATIVE ng/mL (Cutoff 30); Methadone NEGATIVE ng/mL (Cutoff 40); Methamphetamines NEGATIVE ng/mL (Cutoff 30); Opiates NEGATIVE ng/mL (Cutoff 30); Phencyclidine NEGATIVE ng/mL (Cutoff 15)
[2019-07-17 11:17] LABS: Alpha 2 Globulin (PEP) 0.83 g/dL (0.48-1.05); Beta Globulin (PEP) 0.71 g/dL (0.48-1.10)
[2019-07-18 09:54] LABS: IFE Reflexed IFE Done
[2019-07-18 09:55] LABS: Immunoglobulin A 231 mg/dL (68-408); Immunoglobulin G 1040 mg/dL (768-1632); Immunoglobulin M 148 mg/dL (35-263)
== END 2019-07-15 16:24 | disposition home or self-care (01) ==
LOC: 3BNU
PROVIDERS: ADMIT Internal Medicine; ATTEND Internal Medicine

== ENCOUNTER 2019-07-21 16:10 | Inpatient (IN) ==
[2019-07-21] MEDS ORDERED: *HR* Dextrose 50 % in Water (Syg) 50 ML SYRINGE IVP PRN (19:22)
[2019-07-21] MEDS ORDERED: Dextrose Gel 15 GM/37.5 ML TUBE PO PRN ×2 (19:22)
[2019-07-21] MEDS ORDERED: D5% in Water 1,000 ML IVC PRN (19:22)
[2019-07-21 19:27] LABS: VBG Ionized Calcium 1.24 mmol/L (1.15-1.35)
[2019-07-21 19:45] LABS: Calcium 9.7 mg/dL (8.6-10.3); Magnesium 2.2 mg/dL (1.6-2.6); Phosphorous 10.1 mg/dL (2.7-4.5); Potassium 5.8 mEq/L (3.5-5.1)
[2019-07-21] MEDS ORDERED: Vancomycin Oral Soln 125 MG/2.5 ML UDC PO SCH (20:00)
[2019-07-21] MEDS: Insulin LISPRO 300 UNITS/3 ML VIAL SQ SCH (20:39)
[2019-07-21] MEDS: Sodium Bicarbonate 75 MEQ in 0.45 % Sodium Chloride 1,000 ML IVC SCH (20:51)
[2019-07-21] MEDS ORDERED: Albuterol 2.5 MG/3 ML NEBULIZER IH ONE (20:53)
[2019-07-21] MEDS: Topiramate 100 MG TABLET PO SCH (20:54)
[2019-07-21] MEDS ORDERED: Vancomycin 500 MG, Sodium Chloride IRRigation 250 ML RC SCH (21:00)
[2019-07-21] MEDS: *HR* Heparin 5,000 UNIT/ML VIAL SQ SCH (23:03)
[2019-07-22 00:53] LABS: Calcium 9.2 mg/dL (8.6-10.3); Potassium 4.5 mEq/L (3.5-5.1)
[2019-07-22] MEDS ORDERED: 0.9 % Sodium Chloride 500 ML IVC ONE (01:11)
[2019-07-22 01:40] LABS: Adenovirus F 40/41 PCR Not detected (Not detect); Astrovirus PCR Not detected (Not detect); C.difficile Toxin A/B Gene PCR Not detected (Not detect); Campylobacter by PCR Not detected (Not detect); Cryptosporidium by PCR Not detected (Not detect); Cyclospora cayetanensis PCR Not detected (Not detect); E. coli O157 by PCR Not detected (Not detect); Entamoeba histolytica PCR Not detected (Not detect); Enteroaggregative E.coli(EAEC) Not detected (Not detect); Enteropathogenic E.coli(EPEC) Not detected (Not detect); Enterotoxigenic E.coli (ETEC) Not detected (Not detect); Giardia lamblia PCR Not detected (Not detect); Norovirus GI/GII PCR Not detected (Not detect); Plesiomonas shigelloides PCR Not detected (Not detect); Rotavirus A PCR Not detected (Not detect); Salmonella PCR Not detected (Not detect); Sapovirus PCR Not detected (Not detect); Shig/EnteroinvasiveE coli EIEC Not detected (Not detect); Shigalike tox-prod E coli STEC Not detected (Not detect); Vibrio PCR Not detected (Not detect); Vibrio cholerae PCR Not detected (Not detect); Yersinia enterocolitica PCR Not detected (Not detect)
[2019-07-22] MEDS: Sodium Bicarbonate 75 MEQ in 0.45 % Sodium Chloride 1,000 ML IVC SCH (04:28)
[2019-07-22 04:54] LABS: Calcium 8.9 mg/dL (8.6-10.3); Potassium 5.2 mEq/L (3.5-5.1)
[2019-07-22] MEDS: Sodium Bicarbonate 150 MEQ in D5% in Water 1,000 ML IVC SCH ×3 (05:52→21:31)
[2019-07-22 06:31] LABS: Basophils % 0.2 %; Eosinophils % 0.1 %; Hemoglobin 10.9 g/dL (11.5-15.4); Immature Granulocytes % 0.7 % (0-4); Lymphocytes # 1.7 K/mcL (0.6-4.6); Lymphocytes % 11.1 %; Mean Corpuscular HGB Conc 30.3 g/dL (31.6-35.5); Mean Corpuscular Hemoglobin 29.4 pg (28.0-33.3); Mean Platelet Volume 10.7 fL (9.4-12.4); Monocytes # 0.6 K/mcL (0.0-1.3); Monocytes % 4.2 %; Neutrophils # 12.8 K/mcL (1.6-8.9); Platelet Count 314 K/mcL (140-400); Red Blood Count 3.71 M/mcL (3.82-4.97); Red Cell Distribution Width 14.8 % (11.5-14.5); Segmented Neutrophils % 83.7 %; White Blood Count 15.3 K/mcL (4.3-11.1)
[2019-07-22] MEDS ORDERED: Norepinephrine 4 MG in 0.9 % Sodium Chloride 250 ML IVC SCH (06:45)
[2019-07-22] MEDS ORDERED: Lidocaine -MPF 1% 5 ML AMPUL ONE (06:49)
--- NOTE | 2019-07-22 07:08 | Procedure Note ---
<Matthew Choi - Last Filed: 07/22/19 07:09> Date of procedure: 07/22/19 Pre-op diagnosis: hyoptension Post-op diagnosis: same Procedure: PROCEDURE NOTE: IO Placement Performed by: Matthew Choi Indication: IV access required Consent: Critical Intervention-unable to obtain Procedure: The area was prepped in the usual fashion. The L tibia was cannulated with an IO angiocath. The patient tolerated the procedure well. Post-Procedure Diagnosis: Hypotension Complications: none Estimated Blood Loss: minimal Specimens Removed: no Anesthesia: none Surgeon: Matthew Choi Was there an assistant director of residence life present: No Estimated blood loss (cc): 1 Specimen: none <Alex Rodriguez S - Last Filed: 07/22/19 07:55> Procedure: I Was not present during the procedure.
[2019-07-22] MEDS ORDERED: Sodium Bicarbonate 50 MEQ/50 ML VIAL IVP ONE (07:45)
[2019-07-22] MEDS: Insulin LISPRO 300 UNITS/3 ML VIAL SQ SCH ×6 (07:50→23:24)
[2019-07-22] MEDS ORDERED: Aminoglycoside Consult 1 EACH MC ONE (07:52)
[2019-07-22] MEDS: Aspirin Enteric Coated 81 MG Tablet PO SCH (07:57)
[2019-07-22] MEDS: Topiramate 100 MG TABLET PO SCH ×2 (07:58→20:28)
[2019-07-22] MEDS: *HR* Heparin 5,000 UNIT/ML VIAL SQ SCH ×3 (08:13→23:03)
[2019-07-22 08:35] LABS: INR 0.9; Prothrombin Time 10.5 Seconds (9.4-12.1)
--- NOTE | 2019-07-22 09:46 | Cardiology Consult Note ---
Date of Encounter: 07/22/19 Time of Encounter: 09:45 Assessment and Plan (1) Elevated troponin Current Visit: Yes Status: Acute Mild, adynamic troponin elevation in the setting of profound metabolic derrangement. (0.11, 0.12). This is likely secondary to demand ischemia. Hypotensive upon exam, on Levophed. SCr 12.34, will undergo emergent Roxane today. Lactic acid 8.2. ECG's reviewed with interventionalist, Dr. Loni Morris--aVR elevation is a n on-specific finding. Clinical presentation is not consistent with ACS. No indication for urgent isc hemic evaluation at this time; additionally, given acute renal failure, LHC is contraindicated. No prior hx of obstructive CAD. Recent admission d/t seizures, DAMEON (SCr 1.86 upon d/c in 07/15). TTE completed at that time: 07/14/19: LVEF 60%, mild cLVH, normal RV structure and function, moderate (MG=24 mmHg), no PH. Recheck limited TTE. Consider asa, statin, BB when hemodynamically stable. (2) Acute renal failure Current Visit: No Status: Acute Nephrology consulted. CT abdomen pelvis/chest imaging to be completed today. Roxane to be started today. Qualifiers: Acute renal failure type: unspecified Qualified Code(s): N17.9 - Acute kidney failure, unspecified Discussion w patient/family: The assessment and plan as outlined above was discussed with the patient and/or family members who expressed understanding and agreement. All questions were answered. Thank you for involving us in the care of your patient. Please call with any questions. The patient was reviewed with Dr. Badillo. History of Present Illness Consult date: 07/22/19 Requesting physician: Gera Potts Consult reason: Abnormal ECG Chief complaint: AMS History of present illness: Ms. Pisano is a 53 year old female who was recently discharged from [facility] with AMS on 07/15/2019; PMHx significant of diabetes mellitus type 2, hypertension, hyperlipidemia, seizures, chronic kidney disease stage III (recent dx last admis herlinda), chronic pain, obesity. During her last admission she was admitted for altered mental status, with a blank stare. She underwent extensive testing; found to have UTI and was diagnosed with generalized seizure disorder. Please note, patient is not responsive upon exam, HPI obtained from H&P and PMHx obtained from medical records. She presented to [facility] ED on 07/21 via EMS with AMS; per the ER physician the only verbal response patient would give was "my hips, my face". She was described as having a blank stare, CT head negative. Labs were found significantly abnormal with SCr 11. Hypotensive with SBP in the 70s, resolved after 1 L fluid. She was transferred to [facility] for further treatment. Per H&P: "Addendum: Patient's mother arrived and states that for the last 3 days or so patient has had extensive nausea vomiting and diarrhea. Has not had anything much to eat or drink in the last several days." Past Med Surg Social Fam HX - Past Medical History Medical history: diabetes, hyperlipidemia, hypertension, renal disease, seizures, other Additional medical history: CRPS Psychiatric history: depression - Past Surgical History Surgical History: orthopedic, other, other Additional surgical history: Right wrist sx x 3. tubal ligation. heart cath no stents. left ulnar nerve release - Social History Smoking Status: Current every day smoker Smokeless Tobacco Status: No Alcohol use: none Drug use: none - Family History Mother Adopted: [place]: Cierra Yin Age: 77 Family Member Ethnicity: Non- Living Status: Still Living Hx Family Cardiac Disorders: Yes (Hyperlipidemia) Hx Family Respiratory Disorders: Yes (Emphysema, COPD, asthma) Hx Family Cancer: No Hx Family GI Disorders: Yes (Celiac disease) Hx Family Genitourinary Disorders: No Hx Family Endocrine Disorder: No Hx Family Musculoskeletal Disorders: No Hx Family Neuromuscular Disorders: No Hx Family Neurologic Disorders: No Hx Family HEENT Disorders: No Hx Family Autoimmune Disorders: No Hx Family Reproductive Disorders: No Hx Family Psychosocial Disorders: No Hx Family Medical Disorders: No Father History Unknown: Yes Medications and Allergies [place]-3/Dha/Epa/Fish Oil [Fish Oil 1,000 mg Softgel] 2,000 mg PO DAILY 01/02/17 [History] Vitamin B Complex [B Complex] 1 each PO DAILY 01/02/17 [History] Montelukast [Singulair] 10 mg PO QPM 10/16/17 [History] OxyCODONE/APAP 10/325 [Percocet 10/325 MG] 1 tab PO Q6HR PRN 10/16/17 [History] Ascorbic Acid [Vitamin C] 1,000 mg PO DAILY 07/13/19 [History] Aspirin [Lo-Dose Aspirin EC] 81 mg PO DAILY 07/13/19 [History] Calcium Carbonate [Calcium] 600 mg PO BID 07/13/19 [History] Colesevelam HCl 1,875 mg PO BIDWM 07/13/19 [History] Dulaglutide [Trulicity] 1.5 mg SQ QWEEK 07/13/19 [History] Ferrous Sulfate [Iron] 325 mg PO DAILY 07/13/19 [History] Mag Hydrox/Aluminum Hyd/Simeth [Antacid Anti-Gas Liquid] 10 ml PO QID PRN 07/13/19 [History] Metformin HCl [Glucophage] 1,000 mg PO BIDWM 07/13/19 [History] Naloxegol Oxalate [Movantik] 25 mg PO QAM 07/13/19 [History] Potassium Chloride [Klor-Con 10] 10 meq PO BID 07/13/19 [History] Pregabalin [Lyrica] 100 mg PO BID 07/13/19 [History] Sertraline [Zoloft] 50 mg PO DAILY 07/13/19 [History] Sertraline [Zoloft] 100 mg PO DAILY 07/13/19 [History] glyBURIDE [GlyBURIDE] 2.5 mg PO DAILY 07/13/19 [History] Topiramate [Topamax] 100 mg PO BID #60 tablet 07/15/19 [Rx] Allergy/AdvReac Type Severity Reaction Status Date / Time bupropion [From Wellbutrin] AdvReac Seizure Verified 07/15/19 10:48 latex AdvReac See Verified 07/15/19 10:48 Comments ROS unobtainable: due to mental status All Systems Review: The remainder of the systems were reviewed and are negative - Cardiovascular Cardiovascular: as per HPI Physical Examination Vital Signs, Last 4 Hours Temp Pulse Resp BP Pulse Ox 07/22/19 08:00 95 16 100/47 98 07/22/19 07:48 97.9 F 07/22/19 07:00 94 16 86/46 98 07/22/19 06:00 94 16 61/52 94 General: Other (non-responsive upon exam) HEENT: Atraumatic, Normocephaly Cardiac: Reg Rate and Rhythm, Normal S1 and S2 Lungs: Normal Breath Sounds (anterior only) Neuro: Other (non-responsive) Abdomen: Soft Extremities: Other (mild, non-pitting BLE) Results 07/22/19 06:21 07/22/19 04:06 Lab Results 07/21/19 07/22/19 07/22/19 19:06 00:11 04:06 WBC Hgb Hct Plt Count INR Sodium 137 139 139 Potassium 5.8 H 4.5 5.2 H Chloride 105 105 105 Carbon Dioxide 14 L 12 L 10 L* BUN 84 H 86 H 85 H Creatinine 11.37 H 11.93 H 12.34 H Glucose 140 H 150 H 223 H Calcium 9.7 9.2 8.9 Magnesium 2.2 Troponin I 07/22/19 07/22/19 07/22/19 06:21 08:01 08:01 WBC 15.3 H Hgb 10.9 L D Hct 36.0 Plt Count 314 INR 0.9 Sodium Potassium Chloride Carbon Dioxide BUN Creatinine Glucose Calcium Magnesium Troponin I 0.12 H* Active Medications Aspirin (Aspirin Ec) 81 mg PO DAILY [facility] Stop: 01/21/20 09:01 Last Admin: 07/22/19 07:57 Dose: Not Given Documented by: Vancomycin HCl 500 mg/ Sodium (Chloride 250 ml) 0 mg RC QID [facility] Stop: 01/20/20 21:01 Last Admin: 07/21/19 22:06 Dose: 500 mg Documented by: Dextrose/Water (Dextrose 50% (Syg)) 25 ml IVP AD PRN PRN Reason: Hypoglycemia Stop: 01/20/20 19:23 Glucagon (Glucagen) 1 mg IM ONCE PRN PRN Reason: Hypoglycemia Stop: 01/20/20 19:23 Glucose (Gluctose) 15 gm PO ONCE PRN PRN Reason: Hypoglycemia Stop: 01/20/20 19:23 Glucose (Gluctose) 30 gm PO ONCE PRN PRN Reason: Hypoglycemia Stop: 01/20/20 19:23 Heparin Sodium (Porcine) (Heparin) 5,000 unit SQ Q8HR [facility] Stop: 01/21/20 00:01 Last Admin: 07/22/19 08:13 Dose: Not Given Documented by: Piperacillin Sod/Tazobactam (Sod 3.375 gm/ Sodium Chloride) 100 mls @ 25 mls/hr IVPB Q12HR [facility] Stop: 01/21/20 19:17 Dextrose (Dextrose 5%) 1,000 mls @ 100 mls/hr IVC .Q10H PRN PRN Reason: HYPOGLYCEMIA Stop: 01/20/20 19:23 Sodium Bicarbonate 150 meq/ (Dextrose) 1,150 mls @ 150 mls/hr IVC .Q7H40M [facility] Stop: 01/21/20 05:31 Last Admin: 07/22/19 05:52 Dose: 150 mls/hr Documented by: Norepinephrine Bitartrate 4 mg (/ Sodium Chloride) 254 mls @ 30.48 mls/hr IVC CONT [facility]; Protocol Stop: 01/21/20 06:46 Last Admin: 07/22/19 06:58 Dose: 5 mcg/min, 19.1 mls/hr Documented by: Insulin Human Lispro (Humalog) 0 units SQ TIDAC [facility]; Protocol Stop: 01/20/20 19:31 Last Admin: 07/22/19 07:50 Dose: 8 units Documented by: Sertraline HCl (Zoloft) 50 mg PO DAILY [facility] Stop: 01/21/20 09:01 Last Admin: 07/22/19 07:58 Dose: Not Given Documented by: Topiramate (Topamax) 100 mg PO BID [facility] Stop: 01/20/20 21:01 Last Admin: 07/22/19 07:58 Dose: Not Given Documented by: - Imaging and Cardiology Echo: pending, report reviewed - EKG Interpretation EKG results cardiology: personally reviewed Consult Discharge Plan - Plan Referrals: Rajin Levy, BILLET CHECKER [Primary Care Provider] -
[2019-07-22 09:55] LABS: ABG Base Excess -15 mEq/L (-2 to 3); ABG HCO3 10 mEq/L (21-27); ABG Oxygen Saturation 95 % (95-98); ABG PCO2 23 mmHg (35-45); ABG PH 7.27 pH Units (7.32-7.45); ABG PO2 86 mmHg (85-104); ABG TCO2 11 mEq/L (20-26)
--- NOTE | 2019-07-22 10:03 | Nephrology Consult Note ---
<NickJolie mejia Jabier - Last Filed: 07/22/19 12:29> Date of Encounter: 07/22/19 Time of Encounter: 10:03 Assessment and Plan (1) Acute kidney injury superimposed on chronic kidney disease Current Visit: No Status: Acute Anuric DAMEON on CKD 3. Likely multifactorial relate to home medications (Metformin) decreased PO intake related to diarrhea at home. D/C metformin, likely causative factor of lactic acidosis. Consent given from mother (Cierra Yin) to place temp HD line and start CRRT. Continue Sodium bicarb infusion until CRRT started, Carbon dioxide noted at 10. Pt was in hospital earlier this month. GFR was 28 on discharge, she was to f/u with Dr. Manrique in 2-3 months. GFR is 3 today. Retroperitoneal US ordered and negative. Serum studies ordered and can be obtained with the next line draw after temp HD line is placed. Urine studies ordered if patient begins to make urine. Strict I/O Daily weights. Avoid nephrotoxins and renally dose all medications. (2) Encephalopathy acute Current Visit: No Status: Acute Per primary. Consider neurology. (3) Hyperkalemia Current Visit: No Status: Acute Initial K was 5.8, is now 5.2, stable and will correct with CRRT. (4) Elevated lactic acid level Current Visit: Yes Status: Acute Lactic acid is 8.2, consider sepsis component vs surgery consult. History of Present Illness - Reason for Consult Consult date: 07/22/19 Acute Kidney Injury, Chronic Kidney Disease Requesting physician: Chin Lr - Chief Complaint AMS/DAMEON - History of Present Illness Ms. Pisano is a 53 year old female who presented to ED with AMS. She was recently discharged from our facility on 07/15/2019. Patient has a history of diabetes mellitus type 2, hypertension, hyperlipidemia, seizures, chronic kidney disease stage III, and obesity. Last admission she had AMS. UDS was negative. Neurology did see her last stay and encephalopathy was multifactorial to polypharmcy and other comorbidities including acute renal failure. Pt did recover from DAMEON and it was likely she was CKD III with a baseline GFR in the 30-40 range. She was to see Dr. Manrique outpatient in 2-3 months for CKD. Pt was altered in ED and only mentioned hips and face, staff was unsure if she fell or was in pain. CT head and pelvis performed and negative. Upon exam pa tient would turn her head in my direction, but would not answer yes/no questions or shake her head. She was somnolent at times, but protecting her airway. Pt is in severe DAMEON with a GFR of 3. Pt's home list of medications include Metformin and Lisinopril. Metformin should be discontinued and another medication should be advised given her renal function. Topamax was decreased to 100 mg BID from 300 mg last hospitalization. She lives alone. She is a current every day smoker. Denies EtOH or illicit drug use. The patient does a + FH of HD with her Grandmother, the patients mother is not sure what caused her kidney failure only that she is certain she was on HD. All information was obtained from the EMR and from her mother Cirera Yin, I did speak at length with her on the phone for history and consent. She did consent to temporary HD line and CRRT. All questions were answered. Pt's mother did mention she has not felt well at home, she has had diarrhea and hasnt taken much PO intake that she is aware of. Past Med Surg Social Fam HX - Past Medical History Medical history: diabetes, hyperlipidemia, hypertension, renal disease, seizures, other Additional medical history: CRPS Psychiatric history: depression - Past Surgical History Surgical History: orthopedic, other, other Additional surgical history: Right wrist sx x 3. tubal ligation. heart cath no stents. left ulnar nerve release - Social History Smoking Status: Current every day smoker Smokeless Tobacco Status: No Alcohol use: none Drug use: none - Family History Mother Adopted: [place]: Cierra Yin Age: 77 Family Member Ethnicity: Non- Living Status: Still Living Hx Family Cardiac Disorders: Yes (Hyperlipidemia) Hx Family Respiratory Disorders: Yes (Emphysema, COPD, asthma) Hx Family Cancer: No Hx Family GI Disorders: Yes (Celiac disease) Hx Family Genitourinary Disorders: No Hx Family Endocrine Disorder: No Hx Family Musculoskeletal Disorders: No Hx Family Neuromuscular Disorders: No Hx Family Neurologic Disorders: No Hx Family HEENT Disorders: No Hx Family Autoimmune Disorders: No Hx Family Reproductive Disorders: No Hx Family Psychosocial Disorders: No Hx Family Medical Disorders: No Father History Unknown: Yes Medications and Allergies [place]-3/Dha/Epa/Fish Oil [Fish Oil 1,000 mg Softgel] 2,000 mg PO DAILY 01/02/17 [History] Vitamin B Complex [B Complex] 1 each PO DAILY 01/02/17 [History] Montelukast [Singulair] 10 mg PO QPM 10/16/17 [History] OxyCODONE/APAP 10/325 [Percocet 10/325 MG] 1 tab PO Q6HR PRN 10/16/17 [History] Ascorbic Acid [Vitamin C] 1,000 mg PO DAILY 07/13/19 [History] Aspirin [Lo-Dose Aspirin EC] 81 mg PO DAILY 07/13/19 [History] Calcium Carbonate [Calcium] 600 mg PO BID 07/13/19 [History] Colesevelam HCl 1,875 mg PO BIDWM 07/13/19 [History] Dulaglutide [Trulicity] 1.5 mg SQ QWEEK 07/13/19 [History] Ferrous Sulfate [Iron] 325 mg PO DAILY 07/13/19 [History] Mag Hydrox/Aluminum Hyd/Simeth [Antacid Anti-Gas Liquid] 10 ml PO QID PRN 07/13/19 [History] Metformin HCl [Glucophage] 1,000 mg PO BIDWM 07/13/19 [History] Naloxegol Oxalate [Movantik] 25 mg PO QAM 07/13/19 [History] Potassium Chloride [Klor-Con 10] 10 meq PO BID 07/13/19 [History] Pregabalin [Lyrica] 100 mg PO BID 07/13/19 [History] Sertraline [Zoloft] 50 mg PO DAILY 07/13/19 [History] Sertraline [Zoloft] 100 mg PO DAILY 07/13/19 [History] glyBURIDE [GlyBURIDE] 2.5 mg PO DAILY 07/13/19 [History] Topiramate [Topamax] 100 mg PO BID #60 tablet 07/15/19 [Rx] Allergy/AdvReac Type Severity Reaction Status Date / Time bupropion [From Wellbutrin] AdvReac Seizure Verified 07/15/19 10:48 latex AdvReac See Verified 07/15/19 10:48 Comments Review of Systems ROS unobtainable: due to mental status Exam - Vital Signs Vital signs: Initial Vital Signs Pulse Pulse Ox 93 93 07/21/19 17:49 07/21/19 17:49 Vital Signs - Last 8 Hours Temp Pulse Resp BP Pulse Ox 07/22/19 08:00 95 16 100/47 98 07/22/19 07:48 97.9 F 07/22/19 07:00 94 16 86/46 98 07/22/19 06:00 94 16 61/52 94 07/22/19 05:00 94 15 72/55 95 07/22/19 04:33 97.8 F 07/22/19 04:00 95 14 137/113 95 07/22/19 03:48 97 07/22/19 03:00 97 15 140/115 97 Intake and Output 07/21/19 07/22/19 07/22/19 23:59 07:59 15:59 Intake Total 0 / 0 1575 / 1575 Output Total 0 / 0 Balance 0 / 0 1575 / 1575 Intake: IV Fluids 1575 / 1575 0.9 % Sodium Chloride 500 ML @ 500 / 500 250 mls/hr IVC .Q2H [facility] Rx#: [id number] Sodium Bicarbonate 75 MEQ In 0. 1075 / 1075 45% Sodium Chloride 1,000 ML @ 150 mls/hr IVC .Q7H10M [facility] Rx#: [id number] Oral 0 / 0 Output: Catheter 0 / 0 Other: Stool Size Moderate Stool Consistency loose liquid Stool Color Brown # Bowel Movements 1 Weight 123.8 kg 123.8 kg Blood Glucose* 200 291 Patient Weight 07/22/19 23:59 Weight 123.8 kg - General Appearance General appearance: well-developed, well-nourished, obese EENT: ATNC, hearing intact, vision intact Neck: supple Respiratory: clear Cardiology: no edema, normal S1, normal S2 Gastrointestinal: normoactive bowel sounds, tenderness, no guarding Integumentary: no rash, warm and dry Additional Comments: Pt is altered. She does not follow commands. Musculoskeletal: no deformities, no erythema Psychiatric: mood/affect appropriate, cooperative Results - Lab Results 07/22/19 06:21 07/22/19 04:06 Most recent lab results 07/22/19 07/22/19 07/22/19 00:11 04:06 08:23 ABG pH 7.27 L ABG pCO2 23 L ABG pO2 86 ABG HCO3 10 L ABG O2 Saturation 95 Calcium 9.2 8.9 Consult Discharge Plan - Plan Referrals: Rajni Levy, NEUROSURGICAL PHYSICIAN ASSISTANT [Primary Care Provider] - <Asia Reyes - Last Filed: 07/22/19 17:08> Date of Encounter: 07/22/19 Assessment and Plan (1) Acute kidney injury superimposed on chronic kidney disease Current Visit: No Status: Acute (2) Encephalopathy acute Current Visit: No Status: Acute (3) Hyperkalemia Current Visit: No Status: Acute (4) Elevated lactic acid level Current Visit: Yes Status: Acute Exam - Vital Signs Vital signs: Initial Vital Signs Pulse Pulse Ox 93 93 07/21/19 17:49 07/21/19 17:49 Vital Signs - Last 8 Hours Temp Pulse Resp BP Pulse Ox 07/22/19 16:13 98.1 F 07/22/19 15:00 96 18 126/66 95 07/22/19 14:00 97 17 93/80 95 07/22/19 13:00 98.9 F 98 18 128/75 96 07/22/19 12:00 97 15 123/58 96 07/22/19 11:00 98 15 110/53 96 07/22/19 10:00 96 16 115/75 97 Intake and Output 07/22/19 07/22/19 07/22/19 07:59 15:59 23:59 Intake Total 1575 / 4054 2479 / 4054 Output Total 0 / 40 40 / 40 Balance 1575 / 4014 2479 / 4014 -40 / 4014 Intake: IV Fluids 1575 / 4054 2479 / 4054 0.9 % Sodium Chloride 500 ML @ 500 / 500 250 mls/hr IVC .Q2H [facility] Rx#: [id number] Levophed 4 MG In 0.9 % Sodium 254 / 254 Chloride 250 ML @ 8 MCG/MIN 30. 48 mls/hr IVC CONT [facility] Rx#: [id number] Sodium Bicarbonate 75 MEQ In 0. 1075 / 2150 1075 / 2150 45% Sodium Chloride 1,000 ML @ 150 mls/hr IVC .Q7H10M [facility] Rx#: [id number] Sodium Bicarbonate 150 MEQ In 1150 / 1150 Dextrose 5% 1,000 ML @ 150 mls/ hr IVC .Q7H40M [facility] Rx#: [id number] Oral 0 / 0 Output: Urine 0 / 0 Catheter 40 / 40 Fluid Removed by Prismaflex 0 / 0 Other: Stool Size Moderate Stool Consistency loose liquid Stool Color Brown # Bowel Movements 1 Weight 123.8 kg 123.8 kg Blood Glucose* 291 281 206 Patient Weight 07/22/19 23:59 Weight 123.8 kg Results - Lab Results 07/22/19 06:21 07/22/19 04:06 Most recent lab results 07/22/19 07/22/19 08:23 16:33 ABG pH 7.27 L ABG pCO2 23 L ABG pO2 86 ABG HCO3 10 L ABG O2 Saturation 95 Urine Sodium 69.1 - Attending Attestation I examined this patient and my medical decision-making was reviewed with the Resident Physician/NEUROSURGICAL PHYSICIAN ASSISTANT. I agree with the documented findings, disposition and treatment plan as described except to the extent set forth below. Pt seen and examined and in brief; 53 y o female with PMH of DM, HTN and stage 3 CKD admitted as a transfer from [facility] after recent hospital stay with altered mental status and DAMEON with SCr at 1.86, GFR 28 on discharge 6 days ago. Now returning with SCr of 11, GFR 3 along with N/V/D of several days. AQlso noted very acidotic with lactic acid and bicarb at 12. On exam Gen: NAD, lungs clear, Herat S1S2, Abd soft NT/ND Neuro awake and confused. DAMEON with anuria in the setting of N/V/D and shock likely hypovolemic but rule out sepsis. Will proceed with CRRT at this time. Avoid nephrotoxins if possible.
--- NOTE | 2019-07-22 11:03 | Internal Med Progress Note ---
Hospitalist Progress Note - Encounter Date of Encounter: 07/22/19 Time of Encounter: 11:00 - Subjective Interval History: Patient continues to remain anuric. Potassium is improved but she still has a severe metabolic acidosis for which she continues on bicarbonate infusion. Creatinine is not improved. Morning she dropped her blood pressure to 60 systo lic, and interosseous line was placed and she was placed on pressors. Blood pressure is now improved. Patient currently is without complaints although she still is fairly confused and is a poor historian. Nephrology has seen this patient with plans for CRRT to start. She is going to have a dialysis catheter placed this afternoon. A noncontrast CT of her chest abdomen and pelvis was significant for mild wall thickening of the colon, most likely focal atelectasis. A 10 point review of systems is difficult to obtain due to patient's altered mental status - Exam Vitals: Temp Pulse Resp BP Pulse Ox 97.9 F 96 16 115/75 97 07/22/19 07:48 07/22/19 10:00 07/22/19 10:00 07/22/19 10:00 07/22/19 10:00 Exam: General: Patient will awaken and answer simple questions Disha saw to sleep. She is ill-appearing. Skin warm and dry Neck is supple Muc membranes moist Lung dimin bs bases Ht RRR Abd -soft with normoactive bowel sounds, nontender Ext show trace edema, cap refill less than 2.5 second Neurological exam shows no gross focal deficit - Summary of Assessment and Plan Summary of Assessment and Plan: Acute kidney injury -Patient had a catheter placed, will monitor urine output closely. I do not see any documented, will verify -renal US neg for obx, kidneys appear nml -High concern for ATN 07/22: Remains anuric. Plans for CRRT today. Nephrology input appreciated. Anion gap metabolic acidosis -Multifactorial, I do see metformin on her medication list will need to verify that she is still not on this -Could be related to seizures -Urine drug screen neg, Tylenol level neg. Hyperkalemia -Patient received acute treatment for this -potassium remains elevated, ice discuss this with the emergency department and would recommend an additional acute treatment prior to transfer -will place patient on additional bicarbonate all fully correct her metabolic acidosis which is likely at least significantly contributing to her hyperkalemia -She did not show any EKG changes 07/22: Slowly improving, should continue to improve with CRRT Acute gastroenteritis/septic shock -Maybe a viral presentation, rule out infection -She does have a leukocytosis, I will check a flat plate abdomen -Patient does not have a fever, but she does have a leukocytosis, elevated lactic acid -Urine looks clear 07/22: She is day #2 IV Zosyn. DC and enteric vancomycin as C. difficile is negative -Continues on norepinephrine -Check a cortisol level -Lactic acid level is elevated, will consult general surgery to evaluate for possible ischemic gut Altered mental status -Possibly related to have recurrent seizures, polypharmacy Seizures -Continue on her Topamax at reduced dose, consult neurology, check EEG. -Neurology consult ?Metformin Toxicity -Patient states she has been taking metformin for back pain. She has a very difficult historian. I do see that metformin was listed as one of her discharge medications, she does have chronic kidney disease stage III -DC metformin indefinitely, monitor blood sugar levels, monitor acid base status Chronic pain -We evaluate her pain medication list as ischemic contribute to her altered mental status Diabetes mellitus type 2 -Sliding-scale insulin DVT prophylaxis -heparin Sub Q Morbid Obesity Full code - Time Spent with Patient Total time spent is greater than 50% in coordination of care (as documented) at patient's floor/unit and/or counseling patient: Greater than 35 minutes Internal Medicine: Result - Labs CBC & Chem 7: 07/22/19 06:21 07/22/19 04:06 Labs: Short CBC 07/22/19 Range/Units 06:21 WBC 15.3 H (4.3-11.1) K/mcL Hgb 10.9 L D (11.5-15.4) g/dL Hct 36.0 (35.3-44.9) % Plt Count 314 (140-400) K/mcL Neutrophils # 12.8 H (1.6-8.9) K/mcL BMP 07/21/19 07/22/19 07/22/19 19:06 00:11 04:06 Sodium 137 139 139 Potassium 5.8 H 4.5 5.2 H Chloride 105 105 105 Carbon Dioxide 14 L 12 L 10 L* BUN 84 H 86 H 85 H Creatinine 11.37 H 11.93 H 12.34 H Glucose 140 H 150 H 223 H Calcium 9.7 9.2 8.9 Cardiac Enzymes 07/22/19 Range/Units 08:01 Troponin I 0.12 H* (< 0.04) ng/mL - ABG Interpretation ABG results: ABG ABG pH 7.27 pH Units (7.32-7.45) L 07/22/19 08:23 ABG pCO2 23 mmHg (35-45) L 07/22/19 08:23 ABG pO2 86 mmHg (85-104) 07/22/19 08:23 ABG O2 Saturation 95 % (95-98) 07/22/19 08:23 PT/INR, D-dimer PT 10.5 Seconds (9.4-12.1) 07/22/19 08:01 - Impressions Impressions KUB X-Ray 07/21/19 20:15 IMPRESSION: Mild thumbprinting/bowel wall edema versus underdistention in the proximal sigmoid colon. Study is otherwise unremarkable. D/ / Chin Mack MD / Chin Mack MD Interpreting Provider: Chin Mack MD Retroperitoneum Ultrasound 07/21/19 22:22 IMPRESSION: Unremarkable ultrasound of the kidneys. D/ / Rodger Millan MD / Rodger Millan MD Interpreting Provider: Rodger Millan MD Abdomen/Pelvis CT 07/22/19 10:08 IMPRESSION: 1. Multifocal atelectasis 2. Mild wall thickening of the colon. Correlate with any clinical findings of colitis D/ / Justin Orourke MD / Justin Orourke MD Interpreting Provider: Justin Orourke MD Chest CT 07/22/19 10:08 IMPRESSION: 1. Multifocal atelectasis 2. Mild wall thickening of the colon. Correlate with any clinical findings of colitis D/ / Justin Orourke MD / Justin Orourke MD Interpreting Provider: Justin Orourke MD Consult Discharge Plan - Plan Referrals: Rajni Levy, [employer] [Primary Care Provider] -
--- NOTE | 2019-07-22 11:13 | Internal Med History&Physical ---
Date of Encounter: 07/21/19 Time of Encounter: 18:00 Internal Medicine - H&P: HPI Admitted From: Emergency Dept Plans for Post Hospital Care: Home History of present illness: This is a Copy of H&P done 07/21 as was placed in wrong encounter Ms. Pisano is a 53 year old female who was recently discharged from our facility on 07/15/2019. Patient has a history of diabetes mellitus type 2, hypertension, hyperlipidemia, seizures, chronic kidney disease stage III, chronic pain, obesity. During her last admission she was admitted for altered mental status, with a blank stare. He had an extensive evaluation occluding urine drug screen at that time which was negative. She was noted to have a CK level and a benign 100s and acute kidney injury with a creatinine of 3.5 range. She was treated for urinary tract infection and on arrival to our facility at that time had generalized seizures. In by neurology and nephrology at this time. She had an EEG which showed generalized seizure disorder. Patient had been on Topamax 300 mg twice a day, and was having altered mental status from this and thus neurology decrease her Topamax to 100 mg twice a day. Patient was aggressively hydrated, her renal function improved back to near baseline at 1.8 creatinine, and her CK normalized. Pt was sent home to continue a course of Cefdinir for urinary tract infection. Patient presented to [facility] emergency room today with altered mental status. Per the ER physician the only verbal response patient would give was "my hips, my face". She could not explain what she meant by this or provide any further history. Patient otherwise had a fairly blank stare no witnessed seizure activity. Patient had extensive workup while at [facility] emergency room including a CT of her hips CT of her head which showed no acute process. Chest x-ray was negative. Her vital signs on presentation showed her to be initially hypotensive with a blood pressure in the 70 systolic which improved after 1 L of IV fluids. She was satting well on room air. Laboratory studies showed a white count of 16.9, hemoglobin 12.4 platelets 341,000. 66 segs, 27 lymphs, 5 monos. Sodium 134 potassium 5.8 chloride 101 CO2 10. 79 creatinine 11.5 glucose 141 liver enzymes normal ammonia 32 CK 126 lactic acid 3.2. Patient was treated with D50, insulin and bicarbonate 1 amp for her hyperkalemia. A repeat BMP showed her electrolytes not significant weight change except for potassium slightly increased now 6.2. Patient was given 2 L of IV fluids and sent here for further treatment. On arrival to the ICU at [facility], patient will answer questions when repetitively questioned. She does state "my kidneys". She states she may have had one loose stool today, maybe one yesterday but again is very vague. She denies any chest pain or shortness of breath. She denies any nausea or vomiting. She denies any fevers or chills but again review of systems is difficult to obtain. Systems "a 10 point review of systems extremely limited due to patient not cooperating and altered mental status. Pertinent review of systems we could obtain outlined above. Pt states she might have fallen. She also states that she fell the other day and she has been taking metformin", "for my back". Last dose of metformin was yesterday per patient. She states she may have had seizures as well but again cannot be anymore specific. Addendum: Patient's mother arrived and states that for the last 3 days or so patient has had extensive nausea vomiting and diarrhea. Has not had anything much to eat or drink in the last several days. Past Med Surg Social Fam HX - Past Medical History Medical history: diabetes, hyperlipidemia, hypertension, renal disease, seizures, other Additional medical history: CRPS Psychiatric history: depression - Past Surgical History Surgical History: orthopedic, other, other Additional surgical history: Right wrist sx x 3. tubal ligation. heart cath no stents. left ulnar nerve release - Social History Smoking Status: Current every day smoker Smokeless Tobacco Status: No Alcohol use: none Drug use: none - Family History Mother Adopted: [place]: Cierra Yin Age: 77 Family Member Ethnicity: Non- Living Status: Still Living Hx Family Cardiac Disorders: Yes (Hyperlipidemia) Hx Family Respiratory Disorders: Yes (Emphysema, COPD, asthma) Hx Family Cancer: No Hx Family GI Disorders: Yes (Celiac disease) Hx Family Genitourinary Disorders: No Hx Family Endocrine Disorder: No Hx Family Musculoskeletal Disorders: No Hx Family Neuromuscular Disorders: No Hx Family Neurologic Disorders: No Hx Family HEENT Disorders: No Hx Family Autoimmune Disorders: No Hx Family Reproductive Disorders: No Hx Family Psychosocial Disorders: No Hx Family Medical Disorders: No Internal Medicine - H&P: Meds Comfort-3/Dha/Epa/Fish Oil [Fish Oil 1,000 mg Softgel] 2,000 mg PO DAILY 01/02/17 [History] Vitamin B Complex [B Complex] 1 each PO DAILY 01/02/17 [History] Montelukast [Singulair] 10 mg PO QPM 10/16/17 [History] OxyCODONE/APAP 10/325 [Percocet 10/325 MG] 1 tab PO Q6HR PRN 10/16/17 [History] Ascorbic Acid [Vitamin C] 1,000 mg PO DAILY 07/13/19 [History] Aspirin [Lo-Dose Aspirin EC] 81 mg PO DAILY 07/13/19 [History] Calcium Carbonate [Calcium] 600 mg PO BID 07/13/19 [History] Colesevelam HCl 1,875 mg PO BIDWM 07/13/19 [History] Dulaglutide [Trulicity] 1.5 mg SQ QWEEK 07/13/19 [History] Ferrous Sulfate [Iron] 325 mg PO DAILY 07/13/19 [History] Mag Hydrox/Aluminum Hyd/Simeth [Antacid Anti-Gas Liquid] 10 ml PO QID PRN 07/13/19 [History] Metformin HCl [Glucophage] 1,000 mg PO BIDWM 07/13/19 [History] Naloxegol Oxalate [Movantik] 25 mg PO QAM 07/13/19 [History] Potassium Chloride [Klor-Con 10] 10 meq PO BID 07/13/19 [History] Pregabalin [Lyrica] 100 mg PO BID 07/13/19 [History] Sertraline [Zoloft] 50 mg PO DAILY 07/13/19 [History] Sertraline [Zoloft] 100 mg PO DAILY 07/13/19 [History] glyBURIDE [GlyBURIDE] 2.5 mg PO DAILY 07/13/19 [History] Topiramate [Topamax] 100 mg PO BID #60 tablet 07/15/19 [Rx] Allergy/AdvReac Type Severity Reaction Status Date / Time bupropion [From Wellbutrin] AdvReac Seizure Verified 07/15/19 10:48 latex AdvReac See Verified 07/15/19 10:48 Comments All Systems PM: A 10-system review of systems was performed and is negative for pertinent findings except as documented above in the HPI. Limited ROS due to encephalopathy. - Constitutional Vitals: Temp Pulse Resp BP Pulse Ox 97.9 F 96 16 115/75 97 07/22/19 07:48 07/22/19 10:00 07/22/19 10:00 07/22/19 10:00 07/22/19 10:00 Exam: Obese, no acute distress - Head Head exam: Present: atraumatic, normocephalic - Eye Eye exam: Present: PERRL, conjuntiva pink, sclera anicteric Pupils: Present: PERRL - Neck Neck exam general surgery: Present: supple, trachea midline. Absent: lymphadenopathy - Respiratory Respiratory exam: Present: CTAB (Dimin bs bases). Absent: accessory muscle use, rales, rhonchi, wheezes - Cardiovascular Cardiovascular exam: Present: RRR, +S1, +S2. Absent: diastolic murmur, gallop, rubs, systolic murmur - GI/Abdominal GI/Abdominal exam: Present: normal bowel sounds, soft, no peritoneal signs. Absent: distended, tenderness - Extremities Exam Extremities exam: Present: warm, radial pulses palpable and symmetrical. Absent: calf tenderness, cyanotic, pedal edema - Neurological Exam Neurological exam: Present: CN II-XII intact, oriented X3 (oriented x 2, vague answers to questions, answers with repeated questioning), no focal deficits. Absent: pronater drift, facial droop, speech deficit - Skin Skin exam: Present: dry, intact (Cap refill <2.5 sec) Internal Med - H&P Results - Labs CBC & Chem 7: 07/22/19 06:21 07/22/19 04:06 Labs: Short CBC 07/22/19 Range/Units 06:21 WBC 15.3 H (4.3-11.1) K/mcL Hgb 10.9 L D (11.5-15.4) g/dL Hct 36.0 (35.3-44.9) % Plt Count 314 (140-400) K/mcL Neutrophils # 12.8 H (1.6-8.9) K/mcL BMP 07/21/19 07/22/19 07/22/19 19:06 00:11 04:06 Sodium 137 139 139 Potassium 5.8 H 4.5 5.2 H Chloride 105 105 105 Carbon Dioxide 14 L 12 L 10 L* BUN 84 H 86 H 85 H Creatinine 11.37 H 11.93 H 12.34 H Glucose 140 H 150 H 223 H Calcium 9.7 9.2 8.9 Cardiac Enzymes 07/22/19 Range/Units 08:01 Troponin I 0.12 H* (< 0.04) ng/mL - ABG Interpretation ABG results: 07/22/19 08:23 ABG pH 7.27 L ABG pCO2 23 L ABG pO2 86 ABG HCO3 10 L ABG Total CO2 11 L ABG O2 Saturation 95 ABG Base Excess -15 L - Impressions ITS Impressions KUB X-Ray 07/21/19 20:15 IMPRESSION: Mild thumbprinting/bowel wall edema versus underdistention in the proximal sigmoid colon. Study is otherwise unremarkable. D/ / Chin Mack MD / Chin Mack MD Interpreting Provider: Chin Mack MD Retroperitoneum Ultrasound 07/21/19 22:22 IMPRESSION: Unremarkable ultrasound of the kidneys. D/ / Rodger Millan MD / Rodger Millan MD Interpreting Provider: Rodger Millan MD Abdomen/Pelvis CT 07/22/19 10:08 IMPRESSION: 1. Multifocal atelectasis 2. Mild wall thickening of the colon. Correlate with any clinical findings of colitis D/ / Justin Orourke MD / Justin Orourke MD Interpreting Provider: Justin Orourke MD Chest CT 07/22/19 10:08 IMPRESSION: 1. Multifocal atelectasis 2. Mild wall thickening of the colon. Correlate with any clinical findings of colitis D/ / Justin Orourke MD / Justin Orourke MD Interpreting Provider: Justin Orourke MD - Summary of Assessment and Plan Summary of Assessment and Plan: Acute kidney injury -Patient had a catheter placed, will monitor urine output closely. I do not see any documented, will verify -Stat renal sonogram rule out obstruction -High concern for HTN -Continue with IV fluids, likely will add sodium bicarbonate -I discussed the case with Dr. Comer in nephrology who will see this patient in AM Anion gap metabolic acidosis -Multifactorial, I do see metformin on her medication list will need to verify that she is still not on this -Could be related to seizures -Urine drug screen ordered, Tylenol level ordered. Hyperkalemia -Patient received acute treatment for this -potassium remains elevated, ice discuss this with the emergency department and would recommend an additional acute treatment prior to transfer -will place patient on additional bicarbonate all fully correct her metabolic acidosis which is likely at least significantly contributing to her hyperkalemia -She did not show any EKG changes Acute gastroenteritis -Maybe a viral presentation, rule out infection -She does have a leukocytosis, I will check a flat plate abdomen -Patient does not have a fever, but she does have a leukocytosis, elevated lactic acid -Urine looks clear -Cannot rule out a GI infection, bacterial. Therefore I will start patient empirically on renally dosed Zosyn. -Cannot perform a CT abdomen with contrast due to acute kidney injury -check C Diff Toxin assay, add enteric Vnco until C Diff ruled out, leif while ongoing abx Altered mental status -Possibly related to have recurrent seizures, polypharmacy Seizures -Continue on her Topamax at reduced dose, consult neurology, check EEG. ?Metformin Toxicity -Patient states she has been taking metformin for back pain. She has a very difficult historian. I do see that metformin was listed as one of her discharge medications, she does have chronic kidney disease stage III -DC metformin indefinitely, monitor blood sugar levels, monitor acid base status Chronic pain -We evaluate her pain medication list as ischemic contribute to her altered mental status Diabetes mellitus type 2 -Sliding-scale insulin DVT prophylaxis -heparin Sub Q Morbid Obesity Full code I s[penta total of 65 minutes critical care time in evaluation and management of this patient with life-threatening renal failure, life-threatening hyperkalemiaposs sepsis. - Time Spent With Patient Total time spent is greater than 50% in coordination of care (as documented) at patient's floor/unit and/or counseling patient: Greater than 35 minutes (see critical care time in noted)
--- NOTE | 2019-07-22 11:37 | Pulmonology Consult Note ---
<Gera Potts S - Last Filed: 07/22/19 17:40> Date of Encounter: 07/22/19 Time of Encounter: 11:26 Assessment and Plan (1) Hypotension Current Visit: No Status: Acute Patient's blood pressure suddenly dropped around 6 AM Was not responding to fluid boluses * I/O was placed for administration of vasopressor support * Troponin was repeated and found to be elevated at 0.12 (0.11 last night), * EKG taken showed some changes when compared with EKG yesterday, cardiology consulted. My analysis of the EKG was that there were new ST segment depre ssions in leads I, II, and aVL, as well as in V3 through V6, with ST elevation of 1.5mm in aVR. * Trend troponins and repeat EKGs if troponin continues to elevate. Update: 17:40: * Troponins have continued to elevate through the day, with repeat measurements at 0.55 at 12:31 and 1.97 at 16:22. * Repeat EKG at 16:[address] segment changes as described above, as well as new T wave inversions in the lateral leads. * Concern over these dynamic changes prompted a call to the on-call ca rdiologist. * I spoke with Dr Morris of cardiology, who attributed the troponin elevations to the patient's DAMEON, and seemed unconcerned about the EKG changes. He recommended no change from the plan set forth by the cardiology OYSTER PICKER this morning at 09:45 * Echo interpretation is still pending, if new wall motion abnormalities, heparin drip without bolus should be started. Qualifiers: Hypotension type: unspecified hypotension type Qualified Code(s): I95.9 - Hypotension, unspecified (2) Acute encephalopathy Current Visit: Yes Status: Acute Patient's mental status has not improved, Patient opens eyes to verbal commands, makes incomprehensible sounds, and localizes pain giving her a GCS of 10 ([id number]) Source of her encephalopathy remains unknown CT of the head yesterday showed no abnormalities * Neurology will be consulted due to the patient's history of seizures, EEG to rule out seizure induced altered mental status * TSH, random cortisol, LDH, haptoglobin, PAUL, and complement levels ordered to search for other source of encephalopathy (3) Elevated lactic acid level Current Visit: Yes Status: Acute Lactic acid elevated significantly overnight, was 3.0 at 1700 yesterday, 5.7 at 00:00, and 8.2 at 04:00 AM Repeat lactate at noon decreased to 4.[address] chest, abdomen, pelvis showed bowel wall thickening suggestive of colitis Stool panel showed no identified pathogens, including C. difficile * General surgery consultation for evaluation of possible ischemic colitis * Monitor bowel movements character and presence or absence of blood * Bicarbonate for maintenance fluids * Dialysis catheter to be placed by IR, bedside CRRT today * Vancomycin IV to expand antibiotic coverage (4) Acute renal failure Current Visit: No Status: Acute Nephrology recommendations greatly appreciated BUN/creatinine continue to elevate to 85 and 12.3 for today respectively. Oliguric overnight * IR to place hemodialysis catheter today * CRRT to be initiated bedside today Qualifiers: Acute renal failure type: unspecified Qualified Code(s): N17.9 - Acute kidney failure, unspecified History of Present Illness Consult date: 07/22/19 Requesting physician: Chin Lr Reason for consult: other (Shock) Chief complaint: Altered mental status History of present illness: Patient is 53-year-old female with past medical history of diabetes, seizures, hypertension, hyperlipidemia, CKD3, admitted to the ICU for altered mental s tatus Patient presented to the emergency room at [facility] with altered mental status. She was not responding appropriately to questions, repeating complaints about her hips and her face. She does have a history of seizures but was not having any witnessed seizure-like activity. She was found to have significant DAMEON, with the UN of 80 and a creatinine of 11.07. She was also found to be hyperkalemic at 5.8, and to have a lactic acidosis with a lactic acid at 3.2, and a troponin level of 0.11. Overnight, the patient had no urinary output at all. This morning, the patient is minimally responsive. She will open her eyes and grunt yes or no, but does not seem to be oriented at all. Her blood pressure dropped precipitously around 6 AM this morning, and an IO was placed in the right tibia for initiation of pressors. Past Med Surg Social Fam HX - Past Medical History Medical history: diabetes, hyperlipidemia, hypertension, renal disease, seizures, other Additional medical history: CRPS Psychiatric history: depression - Past Surgical History Surgical History: orthopedic, other, other Additional surgical history: Right wrist sx x 3. tubal ligation. heart cath no stents. left ulnar nerve release - Social History Smoking Status: Current every day smoker Smokeless Tobacco Status: No Alcohol use: none Drug use: none - Family History Mother Adopted: [place]: Cierra Yin Age: 77 Family Member Ethnicity: Non- Living Status: Still Living Hx Family Cardiac Disorders: Yes (Hyperlipidemia) Hx Family Respiratory Disorders: Yes (Emphysema, COPD, asthma) Hx Family Cancer: No Hx Family GI Disorders: Yes (Celiac disease) Hx Family Genitourinary Disorders: No Hx Family Endocrine Disorder: No Hx Family Musculoskeletal Disorders: No Hx Family Neuromuscular Disorders: No Hx Family Neurologic Disorders: No Hx Family HEENT Disorders: No Hx Family Autoimmune Disorders: No Hx Family Reproductive Disorders: No Hx Family Psychosocial Disorders: No Hx Family Medical Disorders: No Father History Unknown: Yes Medications and Allergies Stamps-3/Dha/Epa/Fish Oil [Fish Oil 1,000 mg Softgel] 2,000 mg PO DAILY 01/02/17 [History] Vitamin B Complex [B Complex] 1 each PO DAILY 01/02/17 [History] Montelukast [Singulair] 10 mg PO QPM 10/16/17 [History] OxyCODONE/APAP 10/325 [Percocet 10/325 MG] 1 tab PO Q6HR PRN 10/16/17 [History] Ascorbic Acid [Vitamin C] 1,000 mg PO DAILY 07/13/19 [History] Aspirin [Lo-Dose Aspirin EC] 81 mg PO DAILY 07/13/19 [History] Calcium Carbonate [Calcium] 600 mg PO BID 07/13/19 [History] Colesevelam HCl 1,875 mg PO BIDWM 07/13/19 [History] Dulaglutide [Trulicity] 1.5 mg SQ QWEEK 07/13/19 [History] Ferrous Sulfate [Iron] 325 mg PO DAILY 07/13/19 [History] Mag Hydrox/Aluminum Hyd/Simeth [Antacid Anti-Gas Liquid] 10 ml PO QID PRN 07/13/19 [History] Metformin HCl [Glucophage] 1,000 mg PO BIDWM 07/13/19 [History] Naloxegol Oxalate [Movantik] 25 mg PO QAM 07/13/19 [History] Potassium Chloride [Klor-Con 10] 10 meq PO BID 07/13/19 [History] Pregabalin [Lyrica] 100 mg PO BID 07/13/19 [History] Sertraline [Zoloft] 50 mg PO DAILY 07/13/19 [History] Sertraline [Zoloft] 100 mg PO DAILY 07/13/19 [History] glyBURIDE [GlyBURIDE] 2.5 mg PO DAILY 07/13/19 [History] Topiramate [Topamax] 100 mg PO BID #60 tablet 07/15/19 [Rx] Allergy/AdvReac Type Severity Reaction Status Date / Time bupropion [From Wellbutrin] AdvReac Seizure Verified 07/15/19 10:48 latex AdvReac See Verified 07/15/19 10:48 Comments ROS unobtainable: due to mental status All Systems: The remainder of the systems were reviewed and are negative Physical Examination Vital Signs: Vital Signs, Last 4 Hours Temp Pulse Resp BP Pulse Ox 07/22/19 10:00 96 16 115/75 97 07/22/19 09:00 96 16 105/53 98 07/22/19 08:00 95 16 100/47 98 07/22/19 07:48 97.9 F Results - Laboratory Findings CBC and BMP: 07/22/19 06:21 07/22/19 04:06 ABG ABG pH 7.27 pH Units (7.32-7.45) L 07/22/19 08:23 ABG pCO2 23 mmHg (35-45) L 07/22/19 08:23 ABG pO2 86 mmHg (85-104) 07/22/19 08:23 ABG O2 Saturation 95 % (95-98) 07/22/19 08:23 PT/INR, D-dimer PT 10.5 Seconds (9.4-12.1) 07/22/19 08:01 Abnormal lab findings: Abnormal lab results WBC 15.3 K/mcL (4.3-11.1) H 07/22/19 06:21 RBC 3.71 M/mcL (3.82-4.97) L 07/22/19 06:21 Hgb 10.9 g/dL (11.5-15.4) L D 07/22/19 06:21 MCHC 30.3 g/dL (31.6-35.5) L 07/22/19 06:21 RDW 14.8 % (11.5-14.5) H 07/22/19 06:21 Neutrophils # 12.8 K/mcL (1.6-8.9) H 07/22/19 06:21 ABG pH 7.27 pH Units (7.32-7.45) L 07/22/19 08:23 ABG pCO2 23 mmHg (35-45) L 07/22/19 08:23 ABG HCO3 10 mEq/L (21-27) L 07/22/19 08:23 ABG Total CO2 11 mEq/L (20-26) L 07/22/19 08:23 ABG Base Excess -15 mEq/L (-2 to 3) L 07/22/19 08:23 Potassium 5.2 mEq/L (3.5-5.1) H 07/22/19 04:06 Carbon Dioxide 10 mEq/L (23-29) L* 07/22/19 04:06 BUN 85 mg/dL (6-20) H 07/22/19 04:06 Creatinine 12.34 mg/dL (0.60-1.20) H 07/22/19 04:06 Est GFR ( Amer) 4 (> 60) L 07/22/19 04:06 Est GFR (Non-Af Amer) 3 (> 60) L 07/22/19 04:06 Glucose 223 mg/dL (70-105) H 07/22/19 04:06 POC Glucose 291 mg/dL (70-99) H 07/22/19 07:22 Calculated Osmolality 321 (280-300) H 07/22/19 04:06 Lactic Acid 8.2 mmol/L (0.5-2.2) H* 07/22/19 04:06 Phosphorus 10.1 mg/dL (2.7-4.5) H 07/21/19 19:06 Troponin I 0.12 ng/mL (< 0.04) H* 07/22/19 08:01 Procalcitonin 0.41 ng/mL (0.00-0.15) H 07/21/19 21:17 - Microbiology Findings Microbiology Findings: Microbiology, Last 48 Hours 07/21/19 21:15 Blood Culture - Preliminary Peripheral Venipuncture Culture is incubating and being continuously mon itored for growth. Final report to follow. 07/21/19 21:15 Blood Culture - Preliminary Peripheral Venipuncture Culture is incubating and being continuously monitored for growth. Final report to follow. - Clinical Findings Intake & Output: Intake & Output 07/21/19 07/22/19 07/22/19 23:59 07:59 15:59 Intake Total 0 / 0 1575 / 1575 0 / 1575 Output Total 0 / 0 Balance 0 / 0 1575 / 1575 0 / 1575 Weight 123.8 kg 123.8 kg Consult Discharge Plan - Plan Referrals: Rajni Levy, TIM[facility] TRIMMER [Primary Care Provider] - <Alex Rodriguez - Last Filed: 07/22/19 21:42> Date of Encounter: 07/22/19 All Systems: The remainder of the systems were reviewed and are negative Physical Examination Vital Signs: Vital Signs, Last 4 Hours Temp Pulse Resp BP Pulse Ox 07/22/19 21:00 76 18 151/135 96 07/22/19 20:11 84 07/22/19 20:00 98.5 F 83 19 137/89 93 07/22/19 19:00 91 20 95/62 90 07/22/19 18:00 95 20 111/83 92 Results - Laboratory Findings CBC and BMP: 07/22/19 06:21 07/22/19 16:22 ABG ABG pH 7.27 pH Units (7.32-7.45) L 07/22/19 08:23 ABG pCO2 23 mmHg (35-45) L 07/22/19 08:23 ABG pO2 86 mmHg (85-104) 07/22/19 08:23 ABG O2 Saturation 95 % (95-98) 07/22/19 08:23 PT/INR, D-dimer PT 10.5 Seconds (9.4-12.1) 07/22/19 08:01 Abnormal lab findings: Abnormal lab results WBC 15.3 K/mcL (4.3-11.1) H 07/22/19 06:21 RBC 3.71 M/mcL (3.82-4.97) L 07/22/19 06:21 Hgb 10.9 g/dL (11.5-15.4) L D 07/22/19 06:21 MCHC 30.3 g/dL (31.6-35.5) L 07/22/19 06:21 RDW 14.8 % (11.5-14.5) H 07/22/19 06:21 Neutrophils # 12.8 K/mcL (1.6-8.9) H 07/22/19 06:21 ABG pH 7.27 pH Units (7.32-7.45) L 07/22/19 08:23 ABG pCO2 23 mmHg (35-45) L 07/22/19 08:23 ABG HCO3 10 mEq/L (21-27) L 07/22/19 08:23 ABG Total CO2 11 mEq/L (20-26) L 07/22/19 08:23 ABG Base Excess -15 mEq/L (-2 to 3) L 07/22/19 08:23 Potassium 5.2 mEq/L (3.5-5.1) H 07/22/19 04:06 Carbon Dioxide 20 mEq/L (23-29) L 07/22/19 16:22 BUN 90 mg/dL (6-20) H 07/22/19 16:22 Creatinine 12.57 mg/dL (0.60-1.20) H 07/22/19 16:22 Est GFR ( Amer) 4 (> 60) L 07/22/19 16:22 Est GFR (Non-Af Amer) 3 (> 60) L 07/22/19 16:22 Glucose 194 mg/dL (70-105) H 07/22/19 16:22 POC Glucose 168 mg/dL (70-99) H 07/22/19 19:53 Calculated Osmolality 323 (280-300) H 07/22/19 16:22 Lactic Acid 4.8 mmol/L (0.5-2.2) H* 07/22/19 12:31 Uric Acid 14.1 mg/dL (2.3-7.6) H 07/22/19 12:31 Calcium 8.2 mg/dL (8.6-10.3) L 07/22/19 16:22 Venous Ioniz Calcium 0.96 mmol/L (1.15-1.35) L 07/22/19 21:25 Phosphorus 10.1 mg/dL (2.7-4.5) H 07/21/19 19:06 Lactate Dehydrogenase 135 Units/L (140-271) L 07/22/19 12:31 Troponin I 1.97 ng/mL (< 0.04) H* 07/22/19 16:22 Procalcitonin 0.41 ng/mL (0.00-0.15) H 07/21/19 21:17 Free T4 0.48 ng/dl (0.70-2.00) L 07/22/19 12:31 Thyroxine (T4) 4.86 mcg/dL (5.50-11.00) L 07/22/19 12:31 Free T3 1.48 pg/mL (2.50-3.90) L 07/22/19 12:31 Total T3 0.58 ng/mL (0.87-1.78) L 07/22/19 12:31 Urine Clarity Hazy (Clear) A 07/22/19 16:33 Urine Protein 100 mg/dL (Neg-Trace) H 07/22/19 16:33 Urine Blood Large (Negative) H 07/22/19 16:33 Ur Leukocyte Esterase Moderate (Negative) H 07/22/19 16:33 Urine Microscopic RBC 50-100 per hpf (0-3) H 07/22/19 16:33 Urine Microscopic WBC 30-50 per hpf (0-3) H 07/22/19 16:33 Urine Yeast Many per hpf (None Seen) H 07/22/19 16:33 Ur Culture Indicated? YES (NO) A 07/22/19 16:33 - Microbiology Findings Microbiology Findings: Microbiology, Last 48 Hours 07/22/19 16:33 Urine Culture - Preliminary Urine,Clean Catch Culture is incubating. 07/21/19 21:15 Blood Culture - Preliminary Peripheral Venipuncture Culture is incubating and being continuously monitored for growth. Final report to follow. 07/21/19 21:15 Blood Culture - Preliminary Peripheral Venipuncture Culture is incubating and being continuously monitored for growth. Final report to follow. - Clinical Findings Intake & Output: Intake & Output 07/22/19 07/22/19 07/22/19 07:59 15:59 23:59 Intake Total 1575 / 5585 2479 / 5585 1531 / 5585 Output Total 0 / 498 498 / 498 Balance 1575 / 5087 2479 / 5087 1033 / 5087 Weight 123.8 kg 123.8 kg - Attending Attestation I saw and evaluated this patient and my medical decision-making was reviewed with the Resident Physician. I agree with the documented findings, disposition and treatment plan as described except to the extent set forth below. We independently had [id number] contact with the patient I spent 55 minutes of Critical Care time with this patient. It involved decision making of high complexity to assess, manipulate, and support vital organ system failure and/or to prevent further life threatening deterioration of the patient's condition. The time involved in the performance of separately reportable procedures was not counted toward critical care time. Patient seen and examined at bedside Labs, radiology, chart personally reviewed. Management was reviewed during multidisciplinary critical care rounds. GRAIN PACKER: Patient has encephalopathy responding to verbal stimuli answering some questions with one-word answers patient is episodically confused since patient had the previous seizures disorder to continue the anti-epileptic medication vandana l consult neurology ECG did not show any evidence of seizure activity most likely toxic/metabolic encephalopathy Pulm: Patient has acceptable oxygenation and ventilation patient is primarily metabolic acidosis with inadequate consult compensation will closely monitor patient is on vasopressor therapy patient has a high risk for respiratory failure and need for intubation and mechanical ventilation. Patient V/Q mismatch is complicated by left sided bandlike consolidation Cards: Patient is an most likely septic shock the troponin leak might be subendocardial ischemia or acute coronary syndrome cardiology was consulted p atient to get limited echocardiogram to look for wall motion abnormalities troponin is slowly trending up to there is wall motion abnormalities. With IV heparin drip according to cardiology no cardiac catheterization for now. Patient is on norepinephrine drip most likely due to septic shock possible pneumonia source FEN-GI: We will keep her nothing by mouth IV PPI, CT abdomen pelvis shows some evidence of colitis with a lactic acidosis concern for ischemic colitis surgery was consulted to continue IV antibiotics for ischemic bowel at this point appreciate surgery input. Renal: Patient has acute on chronic kidney injury with severe non-gap acidosis and hyperkalemia due to hemodynamic instability but stability Patient is started on CVVH ID: To cover with broad-spectrum antibiotics and follow cultures Heme/Onc: Labs reviewed Endo: Glucose Monitored , to continue insulin therapy patient might have some t ype II lactic acidosis lactic acid is trending down cortisol random was around 11 related to adrenal insufficiency started on hydrocortisone 50 mg every 6. Integ/MSK: Skin Care per routine ICU Nursing Protocol to prevent ulcers. Lines: All lines examined without evidence of infection : Dispo: CODE:Full Code
[2019-07-22] MEDS ORDERED: 0.9 % Sodium Chloride 2,000 ML ONE (11:55)
[2019-07-22] MEDS ORDERED: *HR* Heparin 5,000 UNIT/ML VIAL ONE (11:57)
--- NOTE | 2019-07-22 13:13 | Neurology - Consult Note ---
<Danni Colón N - Last Filed: 07/22/19 14:09> Date of Encounter: 07/22/19 Time of Encounter: 13:13 Assessment and Plan (1) Acute encephalopathy Current Visit: Yes Status: Acute Suspect multifactorial etiology, including acute renal failure, septic shock, and severe lactic acidosis. Given underlying seizure disorder, consideration for non-convulsive status epilepticus. Condition may also be exacerbated by polypharmacy. Head CT obtained on 07/21/2019 demonstrated stable brain findings with no acute intracranial abnormalities. MRI obtained on 07/14/2019 demonstrated no acute intracranial abnormalities or infarct, with minimal chronic microvascular ischemic changes noted. Impressions from EEG performed on 07/12/2019 noted to be abnormal due to presence of intermittent, synchronous high amplitude spike/polyspike-slow wave activity during light sleep, that may suggest increased susceptibility for a generalized seizure disorder. On evaluation today, patient is minimally responsive, opening her eyes inconsistently to voices, and answers questions with either "yes" or "ok", but is unable to provide any information or cooperate with physical exam. Recommendations: - Obtain EEG to rule out non-convulsive status epilepticus. - Continue home antiepileptic therapy with topiramate 100mg BID. - Continue treatment for acute renal failure and sepsis per primary team. (2) History of seizure disorder Current Visit: Yes Status: Acute History of seizure disorder, with home medication of topiramate 100mg BID. This medication is listed under current orders; however, patient does not appear to have received this medication since time of hospital admission. Recommend continued administration of home antiepileptic therapy; consider administration via NG tube if patient is unable to tolerate PO medication therapy. History of Present Illness Chief complaint: AMS HPI: Ms. Pisano is a 53 year old female with a history of DM, HTN, HLD, seizures, CKD stage III, chronic pain, and obesity. She was recently discharged from this facility on 07/15/2019, after being admitted for AMS. During that admission, patient was also found to have DAMEON, with serum creatinine ~3.5. Patient had reportedly been taking topiramate 300mg BID rather than 100mg BID at home, which was thought to be contributing to her mental status change. EEG performed during that admission was consistent with a generalized seizure disorder. Patient's dose of topiramate was decreased to 100mg BID, and patient reportedly returned to baseline mental status prior to hospital discharge on 07/15/2019. Patient presented to [facility] yesterday, 07/21/2019 with altered mental status, and was unable to provide any information regarding precipitating events other than a potential fall. Laboratory studies performed at that facility demonstrated leukocytosis of 16.9, creatinine 11.5, and lactic acidosis of 3.2. Patient was subsequently transferred to this facility for further management, and was admitted directly to the ICU. Neurology consult placed by primary team. On evaluation today, patient is extremely somnolent, though she will open her eyes to voice; however, she drift back to sleep quickly despite continued que stioning. She is unable to provide any information, responding only with "yes" or "ok" to all questions. She does not follow commands and is unable to cooperate with neurologic exam. Past Med Surg Social Fam HX - Past Medical History Medical history: diabetes, hyperlipidemia, hypertension, renal disease, seizures, other Additional medical history: CRPS Psychiatric history: depression - Past Surgical History Surgical History: orthopedic, other, other Additional surgical history: Right wrist sx x 3. tubal ligation. heart cath no stents. left ulnar nerve release - Social History Smoking Status: Current every day smoker Smokeless Tobacco Status: No Alcohol use: none Drug use: none - Family History Mother Adopted: [place]: Cierra Yin Age: 77 Family Member Ethnicity: Non- Living Status: Still Living Hx Family Cardiac Disorders: Yes (Hyperlipidemia) Hx Family Respiratory Disorders: Yes (Emphysema, COPD, asthma) Hx Family Cancer: No Hx Family GI Disorders: Yes (Celiac disease) Hx Family Genitourinary Disorders: No Hx Family Endocrine Disorder: No Hx Family Musculoskeletal Disorders: No Hx Family Neuromuscular Disorders: No Hx Family Neurologic Disorders: No Hx Family HEENT Disorders: No Hx Family Autoimmune Disorders: No Hx Family Reproductive Disorders: No Hx Family Psychosocial Disorders: No Hx Family Medical Disorders: No Father History Unknown: Yes Medications and Allergies [place]-3/Dha/Epa/Fish Oil [Fish Oil 1,000 mg Softgel] 2,000 mg PO DAILY 01/02/17 [History] Vitamin B Complex [B Complex] 1 each PO DAILY 01/02/17 [History] Montelukast [Singulair] 10 mg PO QPM 10/16/17 [History] OxyCODONE/APAP 10/325 [Percocet 10/325 MG] 1 tab PO Q6HR PRN 10/16/17 [History] Ascorbic Acid [Vitamin C] 1,000 mg PO DAILY 07/13/19 [History] Aspirin [Lo-Dose Aspirin EC] 81 mg PO DAILY 07/13/19 [History] Calcium Carbonate [Calcium] 600 mg PO BID 07/13/19 [History] Colesevelam HCl 1,875 mg PO BIDWM 07/13/19 [History] Dulaglutide [Trulicity] 1.5 mg SQ QWEEK 07/13/19 [History] Ferrous Sulfate [Iron] 325 mg PO DAILY 07/13/19 [History] Mag Hydrox/Aluminum Hyd/Simeth [Antacid Anti-Gas Liquid] 10 ml PO QID PRN 07/13/19 [History] Metformin HCl [Glucophage] 1,000 mg PO BIDWM 07/13/19 [History] Naloxegol Oxalate [Movantik] 25 mg PO QAM 07/13/19 [History] Potassium Chloride [Klor-Con 10] 10 meq PO BID 07/13/19 [History] Pregabalin [Lyrica] 100 mg PO BID 07/13/19 [History] Sertraline [Zoloft] 50 mg PO DAILY 07/13/19 [History] Sertraline [Zoloft] 100 mg PO DAILY 07/13/19 [History] glyBURIDE [GlyBURIDE] 2.5 mg PO DAILY 07/13/19 [History] Topiramate [Topamax] 100 mg PO BID #60 tablet 07/15/19 [Rx] Allergy/AdvReac Type Severity Reaction Status Date / Time bupropion [From Wellbutrin] AdvReac Seizure Verified 07/15/19 10:48 latex AdvReac See Verified 07/15/19 10:48 Comments ROS unobtainable: due to mental status All Systems: The remainder of the systems were reviewed and are negative Physical Examination - Vital Signs Vital Signs: Initial Vital Signs Pulse Pulse Ox 93 93 07/21/19 17:49 07/21/19 17:49 - Exam Exam: Extremely limited exam due to patient lethargy and inability to cooperate/participate with exam. - Constitutional General appearance: uncomfortable, acutely ill - Neurologic Detailed motor examination: other (attempts to withdraw lower extremities from touch to plantar surface of foot) Mental Status Examination: does not follow commands, drowsy, lethargic, opens eyes to voice, makes eye contact Cranial nerve examination: PERRL, EOMI Results - Laboratory Findings CBC and BMP: 07/22/19 06:21 07/22/19 04:06 Abnormal lab findings: Abnormal lab results WBC 15.3 K/mcL (4.3-11.1) H 07/22/19 06:21 RBC 3.71 M/mcL (3.82-4.97) L 07/22/19 06:21 Hgb 10.9 g/dL (11.5-15.4) L D 07/22/19 06:21 MCHC 30.3 g/dL (31.6-35.5) L 07/22/19 06:21 RDW 14.8 % (11.5-14.5) H 07/22/19 06:21 Neutrophils # 12.8 K/mcL (1.6-8.9) H 07/22/19 06:21 ABG pH 7.27 pH Units (7.32-7.45) L 07/22/19 08:23 ABG pCO2 23 mmHg (35-45) L 07/22/19 08:23 ABG HCO3 10 mEq/L (21-27) L 07/22/19 08:23 ABG Total CO2 11 mEq/L (20-26) L 07/22/19 08:23 ABG Base Excess -15 mEq/L (-2 to 3) L 07/22/19 08:23 Potassium 5.2 mEq/L (3.5-5.1) H 07/22/19 04:06 Carbon Dioxide 10 mEq/L (23-29) L* 07/22/19 04:06 BUN 85 mg/dL (6-20) H 07/22/19 04:06 Creatinine 12.34 mg/dL (0.60-1.20) H 07/22/19 04:06 Est GFR ( Amer) 4 (> 60) L 07/22/19 04:06 Est GFR (Non-Af Amer) 3 (> 60) L 07/22/19 04:06 Glucose 223 mg/dL (70-105) H 07/22/19 04:06 POC Glucose 281 mg/dL (70-99) H 07/22/19 12:27 Calculated Osmolality 321 (280-300) H 07/22/19 04:06 Lactic Acid 4.8 mmol/L (0.5-2.2) H* 07/22/19 12:31 Phosphorus 10.1 mg/dL (2.7-4.5) H 07/21/19 19:06 Troponin I 0.12 ng/mL (< 0.04) H* 07/22/19 08:01 Procalcitonin 0.41 ng/mL (0.00-0.15) H 07/21/19 21:17 Consult Discharge Plan - Plan Referrals: Rajni Levy, DIRECTOR MORTGAGE [Primary Care Provider] - <Rene Fraga I - Last Filed: 07/23/19 15:50> Date of Encounter: 07/22/19 Assessment and Plan (1) Encephalopathy acute Current Visit: No Status: Acute Pt was seen and examined, my medical decision was reviewed with the Resident Physician, I agree with the documented findings, disposition and treatment plan, as described except to the extent set forth below Immunological examination currently patient is intubated we will review the microbiology quality control technician a CT scan of the head for any acute abnormalities for neurological examination when patient is off sedation will follow the patient with you Rene Fraga MD History of Present Illness HPI: Ms. Pisano is a 53 year old female All Systems: The remainder of the systems were reviewed and are negative Physical Examination - Vital Signs Vital Signs: Initial Vital Signs Pulse Pulse Ox 93 93 07/21/19 17:49 07/21/19 17:49 Results - Laboratory Findings CBC and BMP: 07/23/19 11:29 07/23/19 03:18 Abnormal lab findings: Abnormal lab results WBC 15.3 K/mcL (4.3-11.1) H 07/22/19 06:21 RBC 3.71 M/mcL (3.82-4.97) L 07/22/19 06:21 Hgb 10.9 g/dL (11.5-15.4) L D 07/22/19 06:21 MCHC 30.3 g/dL (31.6-35.5) L 07/22/19 06:21 RDW 14.8 % (11.5-14.5) H 07/22/19 06:21 Neutrophils # 12.8 K/mcL (1.6-8.9) H 07/22/19 06:21 ABG pH 7.27 pH Units (7.32-7.45) L 07/22/19 08:23 ABG pCO2 23 mmHg (35-45) L 07/22/19 08:23 ABG HCO3 10 mEq/L (21-27) L 07/22/19 08:23 ABG Total CO2 11 mEq/L (20-26) L 07/22/19 08:23 ABG Base Excess -15 mEq/L (-2 to 3) L 07/22/19 08:23 Potassium 5.2 mEq/L (3.5-5.1) H 07/22/19 04:06 Carbon Dioxide 10 mEq/L (23-29) L* 07/22/19 04:06 BUN 85 mg/dL (6-20) H 07/22/19 04:06 Creatinine 12.34 mg/dL (0.60-1.20) H 07/22/19 04:06 Est GFR ( Amer) 4 (> 60) L 07/22/19 04:06 Est GFR (Non-Af Amer) 3 (> 60) L 07/22/19 04:06 Glucose 223 mg/dL (70-105) H 07/22/19 04:06 POC Glucose 281 mg/dL (70-99) H 07/22/19 12:27 Calculated Osmolality 321 (280-300) H 07/22/19 04:06 Lactic Acid 4.8 mmol/L (0.5-2.2) H* 07/22/19 12:31 Uric Acid 14.1 mg/dL (2.3-7.6) H 07/22/19 12:31 Phosphorus 10.1 mg/dL (2.7-4.5) H 07/21/19 19:06 Lactate Dehydrogenase 135 Units/L (140-271) L 07/22/19 12:31 Troponin I 0.55 ng/mL (< 0.04) H* 07/22/19 12:31 Procalcitonin 0.41 ng/mL (0.00-0.15) H 07/21/19 21:17 Free T4 0.48 ng/dl (0.70-2.00) L 07/22/19 12:31 Thyroxine (T4) 4.86 mcg/dL (5.50-11.00) L 07/22/19 12:31 Free T3 1.48 pg/mL (2.50-3.90) L 07/22/19 12:31 Total T3 0.58 ng/mL (0.87-1.78) L 07/22/19 12:31
[2019-07-22] MEDS ORDERED: Calcium Gluconate 1gm/50mL 1 GM/50 ML BAG IVPB PRN (13:48)
[2019-07-22 13:50] LABS: Complement C3 140 mg/dL (87-200)
[2019-07-22 13:51] LABS: Thyroid Stimulating Hormone 1.396 mcIU/mL (0.340-5.600)
[2019-07-22 13:52] LABS: Triiodothyronine (T3) Free 1.48 pg/mL (2.50-3.90)
[2019-07-22 13:55] LABS: Triiodothyronine (T3) Total 0.58 ng/mL (0.87-1.78); Uric Acid 14.1 mg/dL (2.3-7.6)
[2019-07-22] MEDS ORDERED: 0.9 % Sodium Chloride 1,000 ML PRIME SCH (14:00)
[2019-07-22] MEDS: Norepinephrine 8 MG in 0.9 % Sodium Chloride 250 ML IVC SCH ×2 (14:07→22:25)
[2019-07-22] MEDS ORDERED: 0.9 % Sodium Chloride 1,000 ML PRIME PRN (14:10)
[2019-07-22] MEDS ORDERED: Perflutren Lipid Microsphere 1.3 ML in 0.9 % Sodium Chloride 8.7 ML IVP ONE (15:18)
[2019-07-22] MEDS ORDERED: Vancomycin 1,750 MG in 0.9 % Sodium Chloride 250 ML IVPB SCH (16:00)
--- NOTE | 2019-07-22 16:13 | EEG/EMG/Oth Biometrics Report ---
EEG Procedure Report EEG Procedure: Routine EEG Procedure Note: This is a routine 21 channel digital EEG performed utilizing 10- 20 international electrode placement system. FINDINGS: Patient has a predominant waking background frequency that is average voltage 6- 8 Hertz theta intermixed with alpha activity in the posterior region, low in amplitude symmetrical over the both hemispheres reactive to eyes opening and closing record continued to show theta activity intermixed with some delta off and on, no abnormal activity recorded, predominantly no evidence of any spike wave discharges or any lateralizing abnormalities, Photic stimulation did not produce any convulsive response. Intermittent EMG artifacts were noted. Stage II sleep was not achieved. Intermittent triphasic waves also noted during this study Impression: Low amplitude mildly abnormal electroencephalogram. Generalized slowing is a nonspecific pattern mostly seen in patient with metabolic toxic encephalopathy consistent with diffuse cortical dysfunction, at the same time does not also triphasic waves noted usually associated with hepatorenal dysfunction No epileptiform discharges noted.
--- NOTE | 2019-07-22 16:21 | Electrocardiograph Report ---
[address] [address] Test Date: 2019-07-22 Pat Name: Belinda Pisano Department: 109 Room: [facility] Gender: F Boat Officer: KIMBER : 1965 Requested By: Jessica Colon Order Number: [id number] Reading MD: Loni Morris Measurements Intervals [place] Rate: 93 P: 36 WI: 174 QRS: 52 QRSD: 113 T: 28 QT: 365 QTc: 416 Interpretive Statements SINUS RHYTHM MODERATE INTRAVENTRICULAR CONDUCTION DELAY NONSPECIFIC ST & T-WAVE ABNORMALITY Electronically Signed On 07-22-2019 16:19:19 EDT by Loni Morris
[2019-07-22] MEDS: Calcium Chloride 4,000 MG in 0.9 % Sodium Chloride 1,000 ML CRRT PRN (16:46)
[2019-07-22] MEDS: PrismaSATE BGK 4/2.5 5,000 ML CRRT SCH ×6 (16:46→23:26)
--- NOTE | 2019-07-22 16:55 | AcuteCare Surgery Consult Note ---
Date of Encounter: 07/22/19 Time of Encounter: 14:40 Assessment and Plan (1) Encephalopathy Current Visit: No Status: Acute Profound. EEG favors metabolic. (2) Acute renal failure Current Visit: No Status: Acute Cre >12. Continue hydration. Nephrology on case. Qualifiers: Acute renal failure type: unspecified Qualified Code(s): N17.9 - Acute kidney failure, unspecified (3) Colitis Current Visit: Yes Status: Acute Not ischemic. Continue IVF and IV abx. Not toxic. WBC 15.3. Lactate has normalized. Will follow. History of Present Illness Consult date: 07/22/19 Reason for consult: abdominal pain Requesting physician: Gera Potts History of present illness: This 53 y/o female is obtunded in critical condition in the ICU. She is not in respiratory failure however, she exhibits encephalopathy. She is vaguely arousable. She reports abdominal pain. She is unable to answer any other historic questions. The rest of the hx is obtained per chart. She was hospitalized 2 weeks ago for UTI and sepsis. She now has mild colitis on CT. Her family reported some nonbloody diarrhea prior to admission. She has had one liquid, brown, nonbloody BM since hospitalized. C. diff and stool cultures are negative. Past Med Surg Social Fam HX - Past Medical History Medical history: diabetes, hyperlipidemia, hypertension, renal disease, seizures, other Additional medical history: CRPS Psychiatric history: depression - Past Surgical History Surgical History: orthopedic, other, other Additional surgical history: Right wrist sx x 3. tubal ligation. heart cath no stents. left ulnar nerve release - Social History Smoking Status: Current every day smoker Smokeless Tobacco Status: No Alcohol use: none Drug use: none - Family History Mother Adopted: [place]: Cierra Yin Age: 77 Family Member Ethnicity: Non- Living Status: Still Living Hx Family Cardiac Disorders: Yes (Hyperlipidemia) Hx Family Respiratory Disorders: Yes (Emphysema, COPD, asthma) Hx Family Cancer: No Hx Family GI Disorders: Yes (Celiac disease) Hx Family Genitourinary Disorders: No Hx Family Endocrine Disorder: No Hx Family Musculoskeletal Disorders: No Hx Family Neuromuscular Disorders: No Hx Family Neurologic Disorders: No Hx Family HEENT Disorders: No Hx Family Autoimmune Disorders: No Hx Family Reproductive Disorders: No Hx Family Psychosocial Disorders: No Hx Family Medical Disorders: No Father History Unknown: Yes Medications and Allergies [place]-3/Dha/Epa/Fish Oil [Fish Oil 1,000 mg Softgel] 2,000 mg PO DAILY 01/02/17 [History] Vitamin B Complex [B Complex] 1 each PO DAILY 01/02/17 [History] Montelukast [Singulair] 10 mg PO QPM 10/16/17 [History] OxyCODONE/APAP 10/325 [Percocet 10/325 MG] 1 tab PO Q6HR PRN 10/16/17 [History] Ascorbic Acid [Vitamin C] 1,000 mg PO DAILY 07/13/19 [History] Aspirin [Lo-Dose Aspirin EC] 81 mg PO DAILY 07/13/19 [History] Calcium Carbonate [Calcium] 600 mg PO BID 07/13/19 [History] Colesevelam HCl 1,875 mg PO BIDWM 07/13/19 [History] Dulaglutide [Trulicity] 1.5 mg SQ QWEEK 07/13/19 [History] Ferrous Sulfate [Iron] 325 mg PO DAILY 07/13/19 [History] Mag Hydrox/Aluminum Hyd/Simeth [Antacid Anti-Gas Liquid] 10 ml PO QID PRN 07/13/19 [History] Metformin HCl [Glucophage] 1,000 mg PO BIDWM 07/13/19 [History] Naloxegol Oxalate [Movantik] 25 mg PO QAM 07/13/19 [History] Potassium Chloride [Klor-Con 10] 10 meq PO BID 07/13/19 [History] Pregabalin [Lyrica] 100 mg PO BID 07/13/19 [History] Sertraline [Zoloft] 50 mg PO DAILY 07/13/19 [History] Sertraline [Zoloft] 100 mg PO DAILY 07/13/19 [History] glyBURIDE [GlyBURIDE] 2.5 mg PO DAILY 07/13/19 [History] Topiramate [Topamax] 100 mg PO BID #60 tablet 07/15/19 [Rx] Allergy/AdvReac Type Severity Reaction Status Date / Time bupropion [From Wellbutrin] AdvReac Seizure Verified 07/15/19 10:48 latex AdvReac See Verified 07/15/19 10:48 Comments Review of Systems ROS unobtainable: due to mental status, other (obtained per chart) All systems PM: The remainder of the systems were reviewed and are negative - Constitutional as per HPI General Surgery Exam Initial Vital Signs Pulse Pulse Ox 93 93 07/21/19 17:49 07/21/19 17:49 - General physical appearance moderate pain, other (obtunded) - Eyes other (opens to voice) - ENT no congestion, dry mucosa. negative: nasal discharge - Neck no masses, trachea midline, no lymphadectomy, no venous distension, other (CVL in place) - Respiratory normal respiratory effort rales: bilateral - Cardiovascular Cardiovascular exam: Present: RRR (on levophed), JVD - Abdomen Abdomen general surgery: Present: bowel sounds present, soft, distended (obese), tender Abdominal Tenderness: Present: diffusely - Genitourinary Present: normal external genitalia, other (smith in place) - Integumentary Integumentary general surgery: Present: warm and dry - Neurologic Present: other (obtunded). Absent: CN 2-12 grossly intact, normal coordination - Musculoskeletal Present: normal posture Exam Initial Vital Signs Pulse Pulse Ox 93 93 07/21/19 17:49 07/21/19 17:49 Results - Labs 07/22/19 06:21 07/22/19 04:06 Abnormal lab results WBC 15.3 K/mcL (4.3-11.1) H 07/22/19 06:21 RBC 3.71 M/mcL (3.82-4.97) L 07/22/19 06:21 Hgb 10.9 g/dL (11.5-15.4) L D 07/22/19 06:21 MCHC 30.3 g/dL (31.6-35.5) L 07/22/19 06:21 RDW 14.8 % (11.5-14.5) H 07/22/19 06:21 Neutrophils # 12.8 K/mcL (1.6-8.9) H 07/22/19 06:21 ABG pH 7.27 pH Units (7.32-7.45) L 07/22/19 08:23 ABG pCO2 23 mmHg (35-45) L 07/22/19 08:23 ABG HCO3 10 mEq/L (21-27) L 07/22/19 08:23 ABG Total CO2 11 mEq/L (20-26) L 07/22/19 08:23 ABG Base Excess -15 mEq/L (-2 to 3) L 07/22/19 08:23 Potassium 5.2 mEq/L (3.5-5.1) H 07/22/19 04:06 Carbon Dioxide 10 mEq/L (23-29) L* 07/22/19 04:06 BUN 85 mg/dL (6-20) H 07/22/19 04:06 Creatinine 12.34 mg/dL (0.60-1.20) H 07/22/19 04:06 Est GFR ( Amer) 4 (> 60) L 07/22/19 04:06 Est GFR (Non-Af Amer) 3 (> 60) L 07/22/19 04:06 Glucose 223 mg/dL (70-105) H 07/22/19 04:06 POC Glucose 206 mg/dL (70-99) H 07/22/19 16:03 Calculated Osmolality 321 (280-300) H 07/22/19 04:06 Lactic Acid 4.8 mmol/L (0.5-2.2) H* 07/22/19 12:31 Uric Acid 14.1 mg/dL (2.3-7.6) H 07/22/19 12:31 Phosphorus 10.1 mg/dL (2.7-4.5) H 07/21/19 19:06 Lactate Dehydrogenase 135 Units/L (140-271) L 07/22/19 12:31 Troponin I 0.55 ng/mL (< 0.04) H* 07/22/19 12:31 Procalcitonin 0.41 ng/mL (0.00-0.15) H 07/21/19 21:17 Free T4 0.48 ng/dl (0.70-2.00) L 07/22/19 12:31 Thyroxine (T4) 4.86 mcg/dL (5.50-11.00) L 07/22/19 12:31 Free T3 1.48 pg/mL (2.50-3.90) L 07/22/19 12:31 Total T3 0.58 ng/mL (0.87-1.78) L 07/22/19 12:31 Diabetes panel 07/21/19 07/22/19 07/22/19 Range/Units 19:06 00:11 04:06 Sodium 137 139 139 (136-145) mEq/L Potassium 5.8 H 4.5 5.2 H (3.5-5.1) mEq/L Chloride 105 105 105 (98-107) mEq/L Carbon Dioxide 14 L 12 L 10 L* (23-29) mEq/L BUN 84 H 86 H 85 H (6-20) mg/dL Creatinine 11.37 H 11.93 H 12.34 H (0.60-1.20) mg/dL Glucose 140 H 150 H 223 H (70-105) mg/dL Calcium 9.7 9.2 8.9 (8.6-10.3) mg/dL Thyroid panel 07/22/19 Range/Units 12:31 TSH 1.396 (0.340-5.600) mcIU/mL Thyroxine (T4) 4.86 L (5.50-11.00) mcg/dL Calcium panel 07/21/19 07/22/19 07/22/19 Range/Units 19: 00:11 04:06 Calcium 9.7 9.2 8.9 (8.6-10.3) mg/dL Phosphorus 10.1 H (2.7-4.5) mg/dL Pituitary panel 07/21/19 07/22/19 07/22/19 Range/Units 19:06 00:11 04:06 Sodium 137 139 139 (136-145) mEq/L Potassium 5.8 H 4.5 5.2 H (3.5-5.1) mEq/L Chloride 105 105 105 (98-107) mEq/L Carbon Dioxide 14 L 12 L 10 L* (23-29) mEq/L BUN 84 H 86 H 85 H (6-20) mg/dL Creatinine 11.37 H 11.93 H 12.34 H (0.60-1.20) mg/dL Glucose 140 H 150 H 223 H (70-105) mg/dL Calcium 9.7 9.2 8.9 (8.6-10.3) mg/dL TSH (0.340-5.600) mcIU/mL Thyroxine (T4) (5.50-11.00) mcg/dL Total T3 (0.87-1.78) ng/mL 07/22/19 Range/Units 12:31 Sodium (136-145) mEq/L Potassium (3.5-5.1) mEq/L Chloride (98-107) mEq/L Carbon Dioxide (23-29) mEq/L BUN (6-20) mg/dL Creatinine (0.60-1.20) mg/dL Glucose (70-105) mg/dL Calcium (8.6-10.3) mg/dL TSH 1.396 (0.340-5.600) mcIU/mL Thyroxine (T4) 4.86 L (5.50-11.00) mcg/dL Total T3 0.58 L (0.87-1.78) ng/mL Adrenal panel 07/21/19 07/22/19 07/22/19 Range/Units 19:06 00:11 04:06 Sodium 137 139 139 (136-145) mEq/L Potassium 5.8 H 4.5 5.2 H (3.5-5.1) mEq/L Chloride 105 105 105 (98-107) mEq/L Carbon Dioxide 14 L 12 L 10 L* (23-29) mEq/L BUN 84 H 86 H 85 H (6-20) mg/dL Creatinine 11.37 H 11.93 H 12.34 H (0.60-1.20) mg/dL Glucose 140 H 150 H 223 H (70-105) mg/dL Calcium 9.7 9.2 8.9 (8.6-10.3) mg/dL All other labs normal. - Imaging CT scan - abdomen: image reviewed (mild thickening of colon wall. No dilation or obstruction of intestines. No pneumobilia. No free air or abscesses.) CT scan - pelvis: image reviewed Consult Discharge Plan - Plan Referrals: Rajni Levy, MANAGER [employer] [Primary Care Provider] -
[2019-07-22] MEDS: Hydrocortisone Sodium Succ 100 MG/2 ML VIAL IVP SCH ×2 (17:07→23:03)
[2019-07-22] MEDS: Piperacillin/Tazobactam 3.375 GM in 0.9 % Sodium Chloride Mini Bag 100 ML IVPB SCH ×2 (17:10→23:03)
[2019-07-22 17:43] LABS: Calcium 8.2 mg/dL (8.6-10.3); Potassium 4.1 mEq/L (3.5-5.1)
[2019-07-22 17:58] LABS: Bilirubin,Urine Negative (Negative); Blood,Urine Large (Negative); Clarity,Urine Hazy (Clear); Color,Urine Yellow (Yellow); Glucose,Urine (UA) Normal (Normal); Ketones,Urine Negative (Negative); PH,Urine 5.5 pH Units (5.0-8.0)
[2019-07-22 17:59] LABS: Leukocyte Esterase,Urine Moderate (Negative); Nitrite,Urine Negative (Negative); Protein,Urine 100 mg/dL (Neg-Trace); Specific Gravity,Urine 1.019 (1.010-1.025); Urobilinogen,Urine Normal (Normal)
[2019-07-22 18:00] LABS: RBC,Urine 50-100 per hpf (0-3); WBC,Urine 30-50 per hpf (0-3)
[2019-07-22 18:01] LABS: Yeast,Urine Many per hpf (None Seen)
[2019-07-22 19:10] LABS: VBG Ionized Calcium 0.98 mmol/L (1.15-1.35)
[2019-07-22] MEDS: Calcium Gluconate 1gm/50mL 1 GM/50 ML BAG IVPB PRN ×2 (20:28→21:34)
[2019-07-22] MEDS ORDERED: *HR* HYDROcodone/Acet 5/325 mg TABLET PO ONE (21:00)
[2019-07-22 21:27] LABS: VBG Ionized Calcium 0.96 mmol/L (1.15-1.35)
[2019-07-22 23:15] LABS: VBG Ionized Calcium 1.01 mmol/L (1.15-1.35)
[2019-07-23 01:21] LABS: VBG Ionized Calcium 1.04 mmol/L (1.15-1.35)
[2019-07-23] MEDS: PrismaSATE BGK 4/2.5 5,000 ML CRRT SCH ×14 (01:37→22:34)
[2019-07-23 03:38] LABS: VBG Ionized Calcium 1.04 mmol/L (1.15-1.35)
[2019-07-23] MEDS: Insulin LISPRO 300 UNITS/3 ML VIAL SQ SCH ×6 (03:47→23:34)
[2019-07-23 03:52] LABS: Albumin 3.2 g/dL (3.5-5.7); Albumin/Globulin Ratio 1.3 (1.1-2.2); Bilirubin,Total 0.4 mg/dL (0.3-1.0); Calcium 8.3 mg/dL (8.6-10.3); Globulin 2.4 g/dL (2.4-3.5); Potassium 4.2 mEq/L (3.5-5.1); Total Protein 5.6 g/dL (6.4-8.9)
[2019-07-23 03:57] LABS: Basophils % 0.2 %; Eosinophils % 0.1 %; Hematocrit 28.9 % (35.3-44.9); Hemoglobin 9.5 g/dL (11.5-15.4); Immature Granulocytes % 0.6 % (0-4); Lymphocytes # 1.5 K/mcL (0.6-4.6); Lymphocytes % 17.9 %; Mean Corpuscular HGB Conc 32.9 g/dL (31.6-35.5); Mean Corpuscular Hemoglobin 29.3 pg (28.0-33.3); Mean Corpuscular Volume 89.2 fL (83.0-100.0); Mean Platelet Volume 10.1 fL (9.4-12.4); Monocytes # 0.5 K/mcL (0.0-1.3); Monocytes % 6.4 %; Neutrophils # 6.4 K/mcL (1.6-8.9); Platelet Count 209 K/mcL (140-400); Red Blood Count 3.24 M/mcL (3.82-4.97); Red Cell Distribution Width 14.5 % (11.5-14.5); Segmented Neutrophils % 74.8 %; White Blood Count 8.5 K/mcL (4.3-11.1)
[2019-07-23] MEDS: Sodium Bicarbonate 150 MEQ in D5% in Water 1,000 ML IVC SCH (04:57)
[2019-07-23] MEDS: Hydrocortisone Sodium Succ 100 MG/2 ML VIAL IVP SCH ×4 (05:00→23:25)
[2019-07-23 06:27] LABS: VBG Ionized Calcium 1.02 mmol/L (1.15-1.35)
--- NOTE | 2019-07-23 08:39 | AcuteCareSurgery Progress Note ---
Date of Encounter: 07/23/19 Time of Encounter: 08:38 - Assessment and Plan (1) Colitis Current Visit: Yes Status: Acute On examination her abdomen is benign. She has no palpable masses and no signs of abdominal pain. There may be signs of colitis by CT scan but it does not appear to be ischemic in nature and she does not have any evidence of C. diffic ile colitis. Agree with current therapy. Will follow from a distance. Subjective Patient reports: other (Patient awake, alert. No nausea. No abdominal pain. States she has been having diarrhea for 3-4 months. Non-bloody) Objective Vital Signs - Last 8 Hours Temp Pulse Resp BP Pulse Ox 07/23/19 07:00 64 16 98 07/23/19 06:00 72 15 150/88 94 07/23/19 05:00 79 16 122/55 89 07/23/19 04:08 77 07/23/19 04:00 98.1 F 74 15 122/73 97 07/23/19 03:00 70 16 124/71 96 07/23/19 02:00 69 20 120/69 96 07/23/19 01:00 72 18 121/68 95 Intake and Output 07/22/19 07/23/19 07/23/19 23:59 07:59 15:59 Intake Total 2561 / 6615 1538 / 1538 Output Total 778 / 916 1418 / 1418 Balance 1783 / 5699 120 / 120 Intake: IV Fluids 2561 / 6615 1538 / 1538 Calcium Chloride 4,000 MG In 0. 453 / 453 229 / 229 9 % Sodium Chloride 1,000 ML @ 41.6 mls/hr CRRT AD PRN Rx#: [id number] PrismaSATE BGK 4/2.5 5,000 ML @ 0 / 0 0 / 0 1500 mls/hr CRRT CONT [facility] Rx#: [id number] Levophed 8 MG In 0.9 % Sodium 258 / 258 59 / 59 Chloride 250 ML @ 8 MCG/MIN 15. 48 mls/hr IVC CONT [facility] Rx#: [id number] Sodium Bicarbonate 150 MEQ In 1150 / 2300 1150 / 1150 Dextrose 5% 1,000 ML @ 150 mls/ hr IVC .Q7H40M [facility] Rx#: [id number] Calcium Gluconate 1gm/50mL 1 gm 100 / 100 In 50 ml @ 50 mls/hr IVPB Q1H PRN Rx#:[id number] Zosyn 3.375 GM In 0.9 % Sodium 100 / 100 100 / 100 Chloride (Mini-Bag +) 100 ML @ 25 mls/hr IVPB Q8H [facility] Rx#: [id number] Vancocin 1,750 MG In 0.9 % 500 / 500 Sodium Chloride 500 ML @ 333. 333 mls/hr IVPB ONCE ONE Rx#: [id number] Output: Catheter 575 / 665 965 / 965 Fluid Removed by Prismaflex 203 / 251 453 / 453 Other: Weight 123.8 kg 123.8 kg Blood Glucose* 168 163 Patient Weight 07/23/19 23:59 Weight 123.8 kg - General physical appearance no distress - Abdomen Abdomen: Present: bowel sounds present, soft, non tender - Labs 07/23/19 03:40 07/23/19 03:18 Diabetes panel 07/22/19 07/23/19 Range/Units 16:22 03:18 Sodium 140 139 (136-145) mEq/L Potassium 4.1 4.2 (3.5-5.1) mEq/L Chloride 102 102 (98-107) mEq/L Carbon Dioxide 20 L 25 (23-29) mEq/L BUN 90 H 52 H (6-20) mg/dL Creatinine 12.57 H 7.03 H (0.60-1.20) mg/dL Glucose 194 H 173 H (70-105) mg/dL Calcium 8.2 L 8.3 L (8.6-10.3) mg/dL AST 50 H (13-39) Units/L ALT 11 (7-52) Units/L Alkaline Phosphatase 65 (34-104) Units/L Albumin 3.2 L (3.5-5.7) g/dL Thyroid panel 07/22/19 Range/Units 12:31 TSH 1.396 (0.340-5.600) mcIU/mL Thyroxine (T4) 4.86 L (5.50-11.00) mcg/dL Calcium panel 07/22/19 07/23/19 Range/Units 16:22 03:18 Calcium 8.2 L 8.3 L (8.6-10.3) mg/dL Albumin 3.2 L (3.5-5.7) g/dL Pituitary panel 07/22/19 07/22/19 07/23/19 Range/Units 12:31 16:22 03:18 Sodium 140 139 (136-145) mEq/L Potassium 4.1 4.2 (3.5-5.1) mEq/L Chloride 102 102 (98-107) mEq/L Carbon Dioxide 20 L 25 (23-29) mEq/L BUN 90 H 52 H (6-20) mg/dL Creatinine 12.57 H 7.03 H (0.60-1.20) mg/dL Glucose 194 H 173 H (70-105) mg/dL Calcium 8.2 L 8.3 L (8.6-10.3) mg/dL TSH 1.396 (0.340-5.600) mcIU/mL Thyroxine (T4) 4.86 L (5.50-11.00) mcg/dL Total T3 0.58 L (0.87-1.78) ng/mL Adrenal panel 07/22/19 07/23/19 Range/Units 16:22 03:18 Sodium 140 139 (136-145) mEq/L Potassium 4.1 4.2 (3.5-5.1) mEq/L Chloride 102 102 (98-107) mEq/L Carbon Dioxide 20 L 25 (23-29) mEq/L BUN 90 H 52 H (6-20) mg/dL Creatinine 12.57 H 7.03 H (0.60-1.20) mg/dL Glucose 194 H 173 H (70-105) mg/dL Calcium 8.2 L 8.3 L (8.6-10.3) mg/dL Total Bilirubin 0.4 (0.3-1.0) mg/dL AST 50 H (13-39) Units/L ALT 11 (7-52) Units/L Alkaline Phosphatase 65 (34-104) Units/L Albumin 3.2 L (3.5-5.7) g/dL Consult Discharge Plan - Plan Referrals: Rajni Levy, MOE [Primary Care Provider] -
[2019-07-23] MEDS: *HR* Heparin 5,000 UNIT/ML VIAL SQ SCH (08:51)
[2019-07-23 08:56] LABS: Phosphorous 3.6 mg/dL (2.7-4.5)
[2019-07-23] MEDS: Topiramate 100 MG TABLET PO SCH ×2 (08:56→20:19)
[2019-07-23] MEDS: Piperacillin/Tazobactam 3.375 GM in 0.9 % Sodium Chloride Mini Bag 100 ML IVPB SCH ×3 (08:56→23:25)
[2019-07-23] MEDS: Aspirin Enteric Coated 81 MG Tablet PO SCH (08:56)
[2019-07-23] MEDS: Calcium Chloride 4,000 MG in 0.9 % Sodium Chloride 1,000 ML CRRT PRN (09:01)
[2019-07-23 09:05] LABS: VBG Ionized Calcium 1.08 mmol/L (1.15-1.35)
--- NOTE | 2019-07-23 09:10 | Neurology Progress Note ---
<Danni Colón N - Last Filed: 07/23/19 11:15> Date of Encounter: 07/23/19 Time of Encounter: 09:10 Assessment and Plan (1) Acute encephalopathy Current Visit: Yes Status: Acute Improving. Review of morning laboratory studies is significant for improved serum creatinine of 7.34 (12.57 yesterday) and resolution of lactic acidosis. Impressions of EEG performed yesterday afternoon were as follows: Low amplitude mildly abnormal electroencephalogram. Generalized slowing is a nonspecific pattern mostly seen in patient with metabolic toxic encephalopathy consistent with diffuse cortical dysfunction, at the same time does not also triphasic waves noted usually associated with hepatorenal dysfunction. No epileptiform discharges noted. Recommendations: - Continue current treatment plan for underlying sepsis and acute renal failure per primary and nephrology teams. - Avoid sedating medications. (2) History of seizure disorder Current Visit: Yes Status: Acute - Continue home antiepileptic therapy with topiramate 100mg BID. Subjective Interval history: Ms. Pisano was seen and evaluated at the bedside this morning. She is alert and oriented, and able to respond to questions appropriately today. She states that she is not sure what happened immediately prior to her return to the hospital, but does remember being at home after hospital discharge on 07/15/19 and having lunch with a friend a few days ago. She reports intermittent chest discomfort and heaviness, which has been going on for "a while". She denies any pain, numbness, weakness, or other complaints. Nursing staff reports that her level of alertness has been waxing and waning this morning. Objective - Constitutional Vitals: Temp Pulse Resp BP Pulse Ox 97.4 F L 76 21 139/77 93 07/23/19 08:00 07/23/19 08:00 07/23/19 08:00 07/23/19 08:00 07/23/19 08:00 General appearance: Present: A&O X 3, pleasant, no acute distress, answers qu estions appropriately - Head Head exam: Present: atraumatic, normal inspection, normocephalic - Eye Eye exam: Present: EOMI, normal appearance, PERRL Pupils: Present: normal accommodation, PERRL - Extremities Exam Extremities exam: Present: normal inspection, pedal edema (generalized nonpitting edema in all four extremities), warm. Absent: tenderness - Neurological Exam Motor Examination: Present: grossly full strength in all extremities, full strength in all major muscle groups Motor examination - right side: 4: biceps, triceps, tour bus driver/guide, tibialis Anterior, toe extension (EHL), plantarflexion Motor examination - left side: 45: biceps, triceps, tour bus driver/guide, tibialis Anterior, toe extension (EHL), plantarflexion Sensation intact: Present: intact, light touch Mental Status Examination: Present: awake, alert, oriented to person, oriented to place, oriented to time, follows commands appropriately, answers questions a ppropriately, no aphasia, makes eye contact Cranial nerve examination: Present: PERRL, EOMI, tongue protrudes midline Results - Laboratory Findings CBC and BMP: 07/23/19 03:40 07/23/19 03:18 Abnormal lab findings: Abnormal lab results WBC 15.3 K/mcL (4.3-11.1) H 07/22/19 06:21 RBC 3.24 M/mcL (3.82-4.97) L 07/23/19 03:40 Hgb 9.5 g/dL (11.5-15.4) L 07/23/19 03:40 Hct 28.9 % (35.3-44.9) L 07/23/19 03:40 MCHC 30.3 g/dL (31.6-35.5) L 07/22/19 06:21 RDW 14.8 % (11.5-14.5) H 07/22/19 06:21 Neutrophils # 12.8 K/mcL (1.6-8.9) H 07/22/19 06:21 ABG pH 7.27 pH Units (7.32-7.45) L 07/22/19 08:23 ABG pCO2 23 mmHg (35-45) L 07/22/19 08:23 ABG HCO3 10 mEq/L (21-27) L 07/22/19 08:23 ABG Total CO2 11 mEq/L (20-26) L 07/22/19 08:23 ABG Base Excess -15 mEq/L (-2 to 3) L 07/22/19 08:23 Potassium 5.2 mEq/L (3.5-5.1) H 07/22/19 04:06 Carbon Dioxide 20 mEq/L (23-29) L 07/22/19 16:22 BUN 52 mg/dL (6-20) H 07/23/19 03:18 Creatinine 7.03 mg/dL (0.60-1.20) H 07/23/19 03:18 Est GFR ( Amer) 7 (> 60) L 07/23/19 03:18 Est GFR (Non-Af Amer) 6 (> 60) L 07/23/19 03:18 Glucose 173 mg/dL (70-105) H 07/23/19 03:18 POC Glucose 161 mg/dL (70-99) H 07/23/19 08:37 Calculated Osmolality 306 (280-300) H 07/23/19 03:18 Lactic Acid 4.8 mmol/L (0.5-2.2) H* 07/22/19 12:31 Uric Acid 14.1 mg/dL (2.3-7.6) H 07/22/19 12:31 Calcium 8.3 mg/dL (8.6-10.3) L 07/23/19 03:18 Venous Ioniz Calcium 1.08 mmol/L (1.15-1.35) L 07/23/19 08:47 Phosphorus 10.1 mg/dL (2.7-4.5) H 07/21/19 19:06 AST 50 Units/L (13-39) H 07/23/19 03:18 Lactate Dehydrogenase 135 Units/L (140-271) L 07/22/19 12:31 Troponin I 9.00 ng/mL (< 0.04) H* 07/23/19 08:15 Serum Total Protein 5.6 g/dL (6.4-8.9) L 07/23/19 03:18 Albumin 3.2 g/dL (3.5-5.7) L 07/23/19 03:18 Procalcitonin 0.41 ng/mL (0.00-0.15) H 07/21/19 21:17 Free T4 0.48 ng/dl (0.70-2.00) L 07/22/19 12:31 Thyroxine (T4) 4.86 mcg/dL (5.50-11.00) L 07/22/19 12:31 Free T3 1.48 pg/mL (2.50-3.90) L 07/22/19 12:31 Total T3 0.58 ng/mL (0.87-1.78) L 07/22/19 12:31 Urine Clarity Hazy (Clear) A 07/22/19 16:33 Urine Protein 100 mg/dL (Neg-Trace) H 07/22/19 16:33 Urine Blood Large (Negative) H 07/22/19 16:33 Ur Leukocyte Esterase Moderate (Negative) H 07/22/19 16:33 Urine Microscopic RBC 50-100 per hpf (0-3) H 07/22/19 16:33 Urine Microscopic WBC 30-50 per hpf (0-3) H 07/22/19 16:33 Urine Yeast Many per hpf (None Seen) H 07/22/19 16:33 Ur Culture Indicated? YES (NO) A 07/22/19 16:33 Consult Discharge Plan - Plan Referrals: Rajni Levy, [employer]CHNICIAN [Primary Care Provider] - <Rene Fraga I - Last Filed: 07/23/19 12:01> Date of Encounter: 07/23/19 Assessment and Plan (1) Seizure Current Visit: No Status: Chronic Pt was seen and examined, my medical decision was reviewed with the Resident Physician, I agree with the documented findings, disposition and treatment plan, as described except to the extent set forth below Patient is alert awake and oriented now doing much better than yesterday No focal motor deficit noted from seizure standpoint she had an history of seizures in the past and had been on Topamax suggest that she should continue on the current dosage of Topamax which is 100 mg twice a day Other treatment is as per primary team Rene Fraga MD Objective - Constitutional Vitals: Temp Pulse Resp BP Pulse Ox 97.4 F L 64 21 133/59 97 07/23/19 08:00 07/23/19 10:00 07/23/19 10:00 07/23/19 10:00 07/23/19 10:00 Results - Laboratory Findings CBC and BMP: 07/23/19 11:29 07/23/19 03:18 Abnormal lab findings: Abnormal lab results WBC 15.3 K/mcL (4.3-11.1) H 07/22/19 06:21 RBC 3.40 M/mcL (3.82-4.97) L 07/23/19 11:29 Hgb 9.9 g/dL (11.5-15.4) L 07/23/19 11:29 Hct 30.0 % (35.3-44.9) L 07/23/19 11:29 MCHC 30.3 g/dL (31.6-35.5) L 07/22/19 06:21 RDW 14.8 % (11.5-14.5) H 07/22/19 06:21 Neutrophils # 12.8 K/mcL (1.6-8.9) H 07/22/19 06:21 Haptoglobin 224 mg/dL (30-200) H 07/22/19 12:31 ABG pH 7.27 pH Units (7.32-7.45) L 07/22/19 08:23 ABG pCO2 23 mmHg (35-45) L 07/22/19 08:23 ABG HCO3 10 mEq/L (21-27) L 07/22/19 08:23 ABG Total CO2 11 mEq/L (20-26) L 07/22/19 08:23 ABG Base Excess -15 mEq/L (-2 to 3) L 07/22/19 08:23 Potassium 5.2 mEq/L (3.5-5.1) H 07/22/19 04:06 Carbon Dioxide 20 mEq/L (23-29) L 07/22/19 16:22 BUN 52 mg/dL (6-20) H 07/23/19 03:18 Creatinine 7.03 mg/dL (0.60-1.20) H 07/23/19 03:18 Est GFR ( Amer) 7 (> 60) L 07/23/19 03:18 Est GFR (Non-Af Amer) 6 (> 60) L 07/23/19 03:18 Glucose 173 mg/dL (70-105) H 07/23/19 03:18 POC Glucose 141 mg/dL (70-99) H 07/23/19 11:37 Calculated Osmolality 306 (280-300) H 07/23/19 03:18 Lactic Acid 4.8 mmol/L (0.5-2.2) H* 07/22/19 12:31 Uric Acid 14.1 mg/dL (2.3-7.6) H 07/22/19 12:31 Calcium 8.3 mg/dL (8.6-10.3) L 07/23/19 03:18 Venous Ioniz Calcium 1.08 mmol/L (1.15-1.35) L 07/23/19 08:47 Phosphorus 10.1 mg/dL (2.7-4.5) H 07/21/19 19:06 AST 50 Units/L (13-39) H 07/23/19 03:18 Lactate Dehydrogenase 135 Units/L (140-271) L 07/22/19 12:31 Troponin I 9.00 ng/mL (< 0.04) H* 07/23/19 08:15 Serum Total Protein 5.6 g/dL (6.4-8.9) L 07/23/19 03:18 Albumin 3.2 g/dL (3.5-5.7) L 07/23/19 03:18 Procalcitonin 0.41 ng/mL (0.00-0.15) H 07/21/19 21:17 Free T4 0.48 ng/dl (0.70-2.00) L 07/22/19 12:31 Thyroxine (T4) 4.86 mcg/dL (5.50-11.00) L 07/22/19 12:31 Free T3 1.48 pg/mL (2.50-3.90) L 07/22/19 12:31 Total T3 0.58 ng/mL (0.87-1.78) L 07/22/19 12:31 Urine Clarity Hazy (Clear) A 07/22/19 16:33 Urine Protein 100 mg/dL (Neg-Trace) H 07/22/19 16:33 Urine Blood Large (Negative) H 07/22/19 16:33 Ur Leukocyte Esterase Moderate (Negative) H 07/22/19 16:33 Urine Microscopic RBC 50-100 per hpf (0-3) H 07/22/19 16:33 Urine Microscopic WBC 30-50 per hpf (0-3) H 07/22/19 16:33 Urine Yeast Many per hpf (None Seen) H 07/22/19 16:33 Ur Culture Indicated? YES (NO) A 07/22/19 16:33
--- NOTE | 2019-07-23 10:08 | Cardiology Progress Note ---
<Hollis Pelaez - Last Filed: 07/23/19 12:41> Date of Encounter: 07/23/19 Time of Encounter: 10:07 Assessment and Plan (1) NSTEMI (non-ST elevated myocardial infarction) Current Visit: Yes Status: Acute Previously mild, adynamic troponin elevation in the setting of profound metabolic derrangement. (0.11, 0.12); contiues to deny any chest pain, SOB, palpitations. Calm in no distress. Previously became hypotensive and placed on pressor support; currently off. SCr 12.34 elevated and lesa started 07/22/19; now trending down SCr 7.03. Lactic acid 8.2 trending down to 2.2. Previously ECG's reviewed with interventionalist, Dr. Loni Morris--aVR elevation is a non-specific finding. Prior clinical presentation was not consistent with ACS and there was no indication for urgent ischemic evaluation. LHC is was contraindicated in acute renal failure No prior hx of obstructive CAD. Recent admission d/t seizures, [facility] (SCr 1.86 upon d/c in 07/15). TTE completed at that time: 07/14/19: LVEF 60%, mild cLVH, normal RV structure and function, moderate (MG=24 mmHg), no PH. However, troponin elevations increased 1.93, 6.77, 10.77, and 9.1. TTE 07/22/19 showed EF 70%. Normal LV chamber size and function. NSWMA. Discussed with Dr. Nahomi Bernal with nephrology and cleared per nephrology for LHC. Discussed with Dr. Badillo, and Dr. Welch. Will proceed with LHC today. On ASA, heparin gtt. Will add statin. Not on BB d/t hypotension. recommend starting when able. Currently NPO. (2) Acute kidney injury superimposed on chronic kidney disease Current Visit: No Status: Acute Baseline CKD [address] Comer. Likely multifactorial relate to home medications CRRT in progress, patient tolerating well. Strict I/O. Daily weights. Managed per nephrology. Nephrology to continue CRRT for now. Off pressor support since 0500 this am. Per nephrology (Dolores, and Dr. Comer) will resume CRRT after LHC to clear contrast. Discussed and reviewed with Dr. Badillo and will plan for [facility]. Discussion w patient/family: The assessment and plan as outlined above was discussed with the patient and/or family members who expressed understanding and agreement. All questions were answered. Thank you for involving us in the care of your patient. Please call with any questions. Subjective Principal diagnosis: Acute Renal failure Interval history: Denies new onset chest pain, SOB, dizziness, palpitations. Objective Vital Signs, Last 4 Hours Temp Pulse Resp BP Pulse Ox 07/23/19 08:00 97.4 F L 76 21 139/77 93 07/23/19 07:00 64 16 98 General: Conversant, No Apparent Distress HEENT: Atraumatic, Normocephaly, Mucus Membranes Moist Neck: No JVD, Normal carotid pulses Cardiac: Reg Rate and Rhythm, Normal S1 and S2, Other (systolic murmur) Lungs: Normal Breath Sounds, No Wheeze, Rales, Rhonchi Neuro: Alert and responsive, No focal deficits noted Abdomen: Soft, Non-Tender Skin: No rashes noted on visualized skin Musculoskeletal: No Chest Wall Tenderness Extremities: No Clubbing, No Cyanosis, No Edema, Normal Pulses Results 07/23/19 11:29 07/23/19 03:18 Lab Results Laboratory Tests 07/21/19 07/22/19 07/22/19 19:06 00:11 04:06 Hgb Hct Creatinine 11.37 H 11.93 H 12.34 H 07/22/19 07/23/19 07/23/19 16:22 03:18 03:40 Hgb 9.5 L Hct 28.9 L Creatinine 12.57 H 7.03 H Laboratory Tests 07/21/19 07/22/19 07/22/19 19:06 00:11 04:06 Lactic Acid 3.0 H 5.7 H* 8.2 H* 07/22/19 07/22/19 12:31 15:30 Lactic Acid 4.8 H* 2.2 Laboratory Tests 07/22/19 07/22/19 07/22/19 08:01 12:31 16:22 Troponin I 0.12 H* 0.55 H* 1.97 H* 07/22/19 07/23/19 07/23/19 21:10 03:18 08:15 Troponin I 6.77 H* 10.77 H* 9.00 H* Impressions Abdomen/Pelvis CT 07/22/19 10:08 IMPRESSION: 1. Multifocal atelectasis 2. Mild wall thickening of the colon. Correlate with any clinical findings of colitis D/ / Justin Orourke MD / Justin Orourke MD Interpreting Provider: Justin Orourke MD Chest CT 07/22/19 10:08 IMPRESSION: 1. Multifocal atelectasis 2. Mild wall thickening of the colon. Correlate with any clinical findings of colitis D/ / Jusitn Orourke MD / Justin Orourke MD Interpreting Provider: Justin Orourke MD Chest X-Ray 07/22/19 13:45 IMPRESSION: Right IJ central venous catheter tip projects over the superior cavoatrial junction. No pneumothorax. Pulmonary edema and bilateral atelectasis. D/ / 07/22/2019 14:02:11 Sapna Demarco [place] [facility] [place]: Sapna Demarco MD Active Medications Aspirin (Aspirin Ec) 81 mg PO DAILY [facility] Stop: 01/21/20 09:01 Last Admin: 07/23/19 08:56 Dose: 81 mg Documented by: Aspirin (Aspirin) 300 mg RC ONCE ONE Stop: 07/23/19 15:30 Dextrose/Water (Dextrose 50% (Syg)) 25 ml IVP AD PRN PRN Reason: Hypoglycemia Stop: 01/20/20 19:23 Glucagon (Glucagen) 1 mg IM ONCE PRN PRN Reason: Hypoglycemia Stop: 01/20/20 19:23 Glucose (Gluctose) 15 gm PO ONCE PRN PRN Reason: Hypoglycemia Stop: 01/20/20 19:23 Glucose (Gluctose) 30 gm PO ONCE PRN PRN Reason: Hypoglycemia Stop: 01/20/20 19:23 Heparin Sodium (Porcine) (Heparin) 5,000 unit SQ Q8HR [facility] Stop: 01/21/20 00:01 Last Admin: 07/23/19 08:51 Dose: 5,000 unit Documented by: Heparin Sodium (Porcine) (Heparin) 0 unit CRRT ONCE PRN PRN Reason: SEE COMMENTS Stop: 01/21/20 13:49 Hydrocortisone Sodium Succinate (Solu-Cortef) 50 mg IVP Q6HR [facility] Stop: 01/21/20 18:01 Last Admin: 07/23/19 05:00 Dose: 50 mg Documented by: Piperacillin Sod/Tazobactam (Sod 3.375 gm/ Sodium Chloride) 100 mls @ 25 mls/hr IVPB Q8H [facility] Stop: 01/21/20 16:01 Last Admin: 07/23/19 08:56 Dose: 25 mls/hr Documented by: Dextrose (Dextrose 5%) 1,000 mls @ 100 mls/hr IVC .Q10H PRN PRN Reason: HYPOGLYCEMIA Stop: 01/20/20 19:23 Sodium Bicarbonate 150 meq/ (Dextrose) 1,150 mls @ 150 mls/hr IVC .Q7H40M [facility] Stop: 01/21/20 05:31 Last Admin: 07/23/19 04:57 Dose: 150 mls/hr Documented by: Norepinephrine Bitartrate 8 mg (/ Sodium Chloride) 258 mls @ 15.48 mls/hr IVC CONT [facility]; Protocol Stop: 01/21/20 06:46 Last Titration: 07/23/19 03:04 Dose: 0 mcg/min, 0 mls/hr Documented by: CRRT Dialysis Solution (Prismasate Bgk 4/2.5) 5,000 mls @ 1,500 mls/hr CRRT CONT [facility] Stop: 01/21/20 14:01 Last Admin: 07/23/19 08:39 Dose: 1,500 mls/hr Documented by: Citrate (Acd-A) 500 mls @ 80 mls/hr CRRT CONT [facility]; Protocol Stop: 01/21/20 14:01 Last Admin: 07/23/19 05:20 Dose: 80 mls/hr Documented by: Calcium Gluconate (Calcium Gluconate 1gm/50ml) 1 gm in 50 mls @ 50 mls/hr IVPB Q1H PRN PRN Reason: Hypocalcemia Stop: 01/21/20 13:49 Last Infusion: 07/22/19 23:25 Dose: Infused Documented by: Calcium Gluconate (Calcium Gluconate 1gm/50ml) 1 gm in 50 mls @ 50 mls/hr IVPB Q1H PRN PRN Reason: Hypocalcemia Stop: 01/21/20 13:49 CRRT Dialysis Solution (Prismasate Bgk 4/2.5) 5,000 mls @ 1,500 mls/hr CRRT CONT [facility] Stop: 01/21/20 14:01 Last Admin: 07/23/19 08:39 Dose: 1,500 mls/hr Documented by: Sodium Chloride (0.9 % Sodium Chloride) 1,000 mls @ 1,000 mls/hr PRIME .Q1H PRN PRN Reason: CRRT Stop: 01/21/20 14:01 Calcium Chloride 4,000 mg/ (Sodium Chloride) 1,040 mls @ 41.6 mls/hr CRRT AD PRN; Protocol PRN Reason: CRRT PROTOCOL Stop: 01/21/20 16:16 Last Admin: 07/23/19 09:01 Dose: 110 mls/hr Documented by: Heparin Sodium/Dextrose (Heparin 25,000 Unit/250 Ml D5w) 25,000 unit in 250 mls @ 14.856 mls/hr IVC .[id number] [facility]; Protocol Stop: 01/22/20 10:16 Insulin Human Lispro (Humalog) 0 units SQ Q4HR [facility]; Protocol Stop: 01/21/20 12:01 Last Admin: 07/23/19 08:56 Dose: 6 units Documented by: Sertraline HCl (Zoloft) 50 mg PO DAILY [facility] Stop: 01/21/20 09:01 Last Admin: 07/23/19 08:56 Dose: 50 mg Documented by: Topiramate (Topamax) 100 mg PO BID [facility] Stop: 01/20/20 21:01 Last Admin: 07/23/19 08:56 Dose: 100 mg Documented by: Vancomycin HCl (Vancocin) 0 each IVPB AD PRN PRN Reason: SEE COMMENTS Stop: 01/21/20 15:37 Echocardiogram Limited Views 07/22/19 17:00 Impressions: LVEF 70%. Normal LV chamber size and function. Left Ventricular Wall Motion: Rest Echo Findings All wall segments showed normal motion. Findings: Study Quality * Technically sub-optimal due to poor echocardiographic windows. ECG Findings * Normal sinus rhythm. Left Ventricle * LVEF 70%. * Normal LV chamber size and function. Right Ventricle * Right ventricle was not well visualized. Pericardium * The pericardium appears normal. - Imaging and Cardiology Chest Xray: report reviewed Echo: report reviewed - EKG Interpretation EKG results cardiology: no diagnostic ischemia Consult Discharge Plan - Plan Referrals: Rajni Levy WELL SHOOTER [Primary Care Provider] - HAS-BLED Score - Score Abnormal renal function: Dialysis, Transplant, or CR>2.26 mg/dl Medication usage predisposing to bleeding: Antiplatelet agents, NSAIDs, Anticoagulants Score: 2 < A - Last Filed: 07/23/19 21:05> Date of Encounter: 07/23/19 Assessment and Plan Discussion w patient/family: The assessment and plan as outlined above was discussed with the patient and/or family members who expressed understanding and agreement. All questions were answered. Thank you for involving us in the care of your patient. Please call with any questions. Objective Vital Signs, Last 4 Hours Temp Pulse Resp BP Pulse Ox 07/23/19 20:13 96.7 F L 07/23/19 20:00 70 20 129/70 94 07/23/19 19:00 65 20 130/50 96 07/23/19 18:00 70 19 119/86 98 Results 07/23/19 11:29 07/23/19 03:18 Lab Results 07/22/19 07/23/19 07/23/19 21:10 03:18 03:18 WBC Hgb Hct Plt Count INR Sodium 139 Potassium 4.2 Chloride 102 Carbon Dioxide 25 BUN 52 H Creatinine 7.03 H Glucose 173 H Calcium 8.3 L Total Bilirubin 0.4 AST 50 H ALT 11 Alkaline Phosphatase 65 Troponin I 6.77 H* 10.77 H* 07/23/19 07/23/19 07/23/19 03:40 08:15 11:15 WBC 8.5 Hgb 9.5 L Hct 28.9 L Plt Count 209 INR Sodium Potassium Chloride Carbon Dioxide BUN Creatinine Glucose Calcium Total Bilirubin AST ALT Alkaline Phosphatase Troponin I 9.00 H* 7.97 H* 07/23/19 07/23/19 11:29 11:29 WBC 8.2 Hgb 9.9 L Hct 30.0 L Plt Count 196 INR 0.9 Sodium Potassium Chloride Carbon Dioxide BUN Creatinine Glucose Calcium Total Bilirubin AST ALT Alkaline Phosphatase Troponin I - Attending Attestation I have personally performed a face to face evaluation on this patient. I have reviewed and agree with the documented findings and care plan as documented by the [employer]. History and Exam by me shows: Patient with acute on chronic kidney failure with hypotension and significantly elevated troponin. Recommend cardiac catheterization once cleared by nephrology. Thanks for the consult, please call with questions. Stefano Badillo MD [facility]
--- NOTE | 2019-07-23 10:35 | Nephrology Progress Note ---
Date of Encounter: 07/23/19 Time of Encounter: 10:04 - Assessment and Plan (1) Acute kidney injury superimposed on chronic kidney disease Current Visit: No Status: Acute Baseline CKD [address] Comer. Likely multifactorial relate to home medications (Metformin) decreased PO intake related to diarrhea at home. D/C metformin, likely causative factor of lactic acidosis. CRRT in progress, patient tolerating well. Pt was in hospital earlier this month. GFR was 28 on discharge, she was to f/u with Dr. Comer in 2-3 months. GFR is 6 today. Retroperitoneal US ordered and negative. Uric acid is 14.1. Urine NA 69.1. Strict I/O Daily weights. Avoid nephrotoxins and renally dose all medications. Continue CRRT for now. Patient has been off pressor support since 0500 this am. BP is 139/77 at bedside. Pt is tolerating net + 50 fluid removal. May proceed with heart cath tomorrow will resume CRRT after to clear contrast. Spoke with MOE Shafer, he is aware of POC as well. (2) Encephalopathy acute Current Visit: No Status: Acute Appears resolving. (3) Hyperkalemia Current Visit: No Status: Acute K is 4.2, stable. (4) Elevated lactic acid level Current Visit: Yes Status: Acute Lactic acid is 2.2, stable. Subjective Principal diagnosis: AMS Interval history: Pt seen and examined in ICU, tolerating lesa well. Is off all pressor support. Denies nausea, vomiting, diarrhea. Denies shortness of breath. Admits to chest pain, PERLA Li aware. Objective - Vital Signs Vital signs: Vital Signs Temp Pulse Resp BP Pulse Ox 07/23/19 08:00 97.4 F L 76 21 139/77 93 07/23/19 07:00 64 16 98 07/23/19 06:00 72 15 150/88 94 07/23/19 05:00 79 16 122/55 89 07/23/19 04:08 77 07/23/19 04:00 98.1 F 74 15 122/73 97 07/23/19 03:00 70 16 124/71 96 07/23/19 02:00 69 20 120/69 96 07/23/19 01:00 72 18 121/68 95 07/23/19 00:00 84 20 100/76 94 07/22/19 23:40 85 09/24/19 23:00 84 18 148/61 96 07/22/19 22:00 83 19 146/80 95 07/22/19 21:00 76 18 151/135 96 07/22/19 20:11 84 07/22/19 20:00 98.5 F 83 19 137/89 93 07/22/19 19:00 91 20 95/62 90 07/22/19 18:00 95 20 111/83 92 07/22/19 17:00 98 20 117/75 93 07/22/19 16:13 98.1 F 07/22/19 16:00 95 19 137/65 95 07/22/19 15:00 96 18 126/66 95 07/22/19 14:00 97 17 93/80 95 07/22/19 13:00 98.9 F 98 18 128/75 96 07/22/19 12:00 97 15 123/58 96 07/22/19 11:00 98 15 110/53 96 Intake and Output 07/22/19 07/23/19 07/23/19 23:59 07:59 15:59 Intake Total 2561 / 6615 1538 / 1896 358 / 1896 Output Total 778 / 916 1418 / 1956 538 / 1956 Balance 1783 / 5699 120 / -60 -180 / -60 Intake: IV Fluids 2561 / 6615 1538 / 1896 358 / 1896 Calcium Chloride 4,000 MG In 0. 453 / 453 229 / 587 358 / 587 9 % Sodium Chloride 1,000 ML @ 41.6 mls/hr CRRT AD PRN Rx#: [id number] PrismaSATE BGK 4/2.5 5,000 ML @ 0 / 0 0 / 0 0 / 0 1500 mls/hr CRRT CONT [facility] Rx#: [id number] Levophed 8 MG In 0.9 % Sodium 258 / 258 59 / 59 Chloride 250 ML @ 8 MCG/MIN 15. 48 mls/hr IVC CONT [facility] Rx#: [id number] Sodium Bicarbonate 150 MEQ In 1150 / 2300 1150 / 1150 Dextrose 5% 1,000 ML @ 150 mls/ hr IVC .[id number] [facility] Rx#: [id number] Calcium Gluconate 1gm/50mL 1 gm 100 / 100 In 50 ml @ 50 mls/hr IVPB Q1H PRN Rx#:[id number] Zosyn 3.375 GM In 0.9 % Sodium 100 / 100 100 / 100 Chloride (Mini-Bag +) 100 ML @ 25 mls/hr IVPB Q8H [facility] Rx#: [id number] Vancocin 1,750 MG In 0.9 % 500 / 500 Sodium Chloride 500 ML @ 333. 333 mls/hr IVPB ONCE ONE Rx#: [id number] Output: Catheter 575 / 665 965 / 1115 150 / 1115 Fluid Removed by Prismaflex 203 / 251 453 / 841 388 / 841 Other: Weight 123.8 kg 123.8 kg Blood Glucose* 168 163 161 Patient Weight 07/23/19 23:59 Weight 123.8 kg - General Appearance General appearance: Present: well-developed, well-nourished, obese EENT: Present: ATNC, hearing intact, vision intact Neck: Present: supple Respiratory: Present: clear Cardiology: Present: no edema, normal S1, normal S2 Dialysis Vascular Access: Venous Catheter (DRSG C/D/I) Gastrointestinal: Present: normoactive bowel sounds, no tenderness, no guarding Integumentary: Present: no rash, warm and dry Neurologic: Present: alert and oriented x3 Musculoskeletal: Present: no deformities, no erythema Psychiatric: Present: mood/affect appropriate, cooperative - Lab 07/23/19 03:40 07/23/19 03:18 Most recent lab results 07/23/19 07/23/19 03:18 08:15 Calcium 8.3 L Phosphorus 3.6 Consult Discharge Plan - Plan Referrals: Rajni Levy, [employer] M[employer]INE REPAIRER [Primary Care Provider] -
--- NOTE | 2019-07-23 11:11 | Pulmonology Progress Note ---
<Gera Potts S - Last Filed: 07/23/19 13:12> Date of Encounter: 07/23/19 Time of Encounter: 11:11 Assessment and Plan (1) Hypotension Current Visit: No Status: Acute Patient still on Levaquin drip to maintain map above 60 Much more responsive today, oriented, asking appropriate questions, anxious/frustrated Troponin peaked at 10.77 overnight, ongoing trending troponins today 9.00 and 7.97 Reevaluation by cardiology deemed her appropriate for urgent catheterization this afternoon * Initiating heparin drip * Heart cath this afternoon * Holding maintenance fluids of D5 and bicarbonate * Per nephro, continue CRRT today Qualifiers: Hypotension type: unspecified hypotension type Qualified Code(s): I95.9 - Hypotension, unspecified (2) Acute encephalopathy Current Visit: Yes Status: Resolved Patient is much more alert today, Answers questions with intact judgement, appropriate insight, and linear thought * Initiated supplemental hydrocortisone yesterday, due to low random cortisol measurement * Continue to monitor her mental status while on heparin and CRRT (3) Elevated lactic acid level Current Visit: Yes Status: Acute Lactic acidosis resolved, last measurement 2.2 * Will repeat lactic acid tomorrow to confirm resolution (4) Acute renal failure Current Visit: No Status: Acute Patient doing well on CRRT BUN down to 52 today, from 90 yesterday Creatinine down to 7.03 today, from 12.57 yesterday Patient with output of straw-colored urine overnight * Per nephro, continue CRRT * Avoid nephrotoxins where possible * Stopped vancomycin * Continue to monitor urine output, and repeat chem panel in the morning Qualifiers: Acute renal failure type: unspecified Qualified Code(s): N17.9 - Acute kidney failure, unspecified Subjective Principal diagnosis: AMS Interval history: Mrs. Pisano is a 53-year-old male admitted to her service with mental status and acute renal failure with hyperkalemia. She is much more lucid today, is alert and oriented on exam, I reports she is feeling okay. She has significant anxiety, and is feeling very overwhelmed with all of the tests and interventions that we are proposing. Due to this feeling of being overwhelmed, she is intermittently refusing medications and blood draws. She denies headache, dizziness, chest pain, shortness of breath, belly pain, weakness anywhere. Objective PUL Vital signs: Last Vital Signs Temp 97.4 F L 07/23/19 08:00 Pulse 64 07/23/19 10:00 Resp 21 07/23/19 10:00 BP 133/59 07/23/19 10:00 Pulse Ox 97 07/23/19 10:00 General appearance: alert, agitated (Mildly) Eyes: nonicteric ENT: oropharynx dry Neck: other (HD catheter in the right IJ) Effort: normal Auscultation: bilateral: clear Cardiovascular: regular rate and rhythm Gastrointestinal: soft, non-tender, non-distended, other (Obese) Integumentary: normal Extremities: no cyanosis, no edema normal mental status, non-focal exam, pupils equal and round, CN II-XII normal anxious, other (Prolonged deliberation over decisions, very nervous and indecisive) Results - Laboratory Findings CBC and BMP: 07/23/19 11:29 07/23/19 03:18 ABG ABG pH 7.27 pH Units (7.32-7.45) L 07/22/19 08:23 ABG pCO2 23 mmHg (35-45) L 07/22/19 08:23 ABG pO2 86 mmHg (85-104) 07/22/19 08:23 ABG O2 Saturation 95 % (95-98) 07/22/19 08:23 PT/INR, D-dimer PT 10.5 Seconds (9.4-12.1) 07/22/19 08:01 Abnormal lab findings: Abnormal lab results WBC 15.3 K/mcL (4.3-11.1) H 07/22/19 06:21 RBC 3.24 M/mcL (3.82-4.97) L 07/23/19 03:40 Hgb 9.5 g/dL (11.5-15.4) L 07/23/19 03:40 Hct 28.9 % (35.3-44.9) L 07/23/19 03:40 MCHC 30.3 g/dL (31.6-35.5) L 07/22/19 06:21 RDW 14.8 % (11.5-14.5) H 07/22/19 06:21 Neutrophils # 12.8 K/mcL (1.6-8.9) H 07/22/19 06:21 ABG pH 7.27 pH Units (7.32-7.45) L 07/22/19 08:23 ABG pCO2 23 mmHg (35-45) L 07/22/19 08:23 ABG HCO3 10 mEq/L (21-27) L 07/22/19 08:23 ABG Total CO2 11 mEq/L (20-26) L 07/22/19 08:23 ABG Base Excess -15 mEq/L (-2 to 3) L 07/22/19 08:23 Potassium 5.2 mEq/L (3.5-5.1) H 07/22/19 04:06 Carbon Dioxide 20 mEq/L (23-29) L 07/22/19 16:22 BUN 52 mg/dL (6-20) H 07/23/19 03:18 Creatinine 7.03 mg/dL (0.60-1.20) H 07/23/19 03:18 Est GFR ( Amer) 7 (> 60) L 07/23/19 03:18 Est GFR (Non-Af Amer) 6 (> 60) L 07/23/19 03:18 Glucose 173 mg/dL (70-105) H 07/23/19 03:18 POC Glucose 161 mg/dL (70-99) H 07/23/19 08:37 Calculated Osmolality 306 (280-300) H 07/23/19 03:18 Lactic Acid 4.8 mmol/L (0.5-2.2) H* 07/22/19 12:31 Uric Acid 14.1 mg/dL (2.3-7.6) H 07/22/19 12:31 Calcium 8.3 mg/dL (8.6-10.3) L 07/23/19 03:18 Venous Ioniz Calcium 1.08 mmol/L (1.15-1.35) L 07/23/19 08:47 Phosphorus 10.1 mg/dL (2.7-4.5) H 07/21/19 19:06 AST 50 Units/L (13-39) H 07/23/19 03:18 Lactate Dehydrogenase 135 Units/L (140-271) L 07/22/19 12:31 Troponin I 9.00 ng/mL (< 0.04) H* 07/23/19 08:15 Serum Total Protein 5.6 g/dL (6.4-8.9) L 07/23/19 03:18 Albumin 3.2 g/dL (3.5-5.7) L 07/23/19 03:18 Procalcitonin 0.41 ng/mL (0.00-0.15) H 07/21/19 21:17 Free T4 0.48 ng/dl (0.70-2.00) L 07/22/19 12:31 Thyroxine (T4) 4.86 mcg/dL (5.50-11.00) L 07/22/19 12:31 Free T3 1.48 pg/mL (2.50-3.90) L 07/22/19 12:31 Total T3 0.58 ng/mL (0.87-1.78) L 07/22/19 12:31 Urine Clarity Hazy (Clear) A 07/22/19 16:33 Urine Protein 100 mg/dL (Neg-Trace) H 07/22/19 16:33 Urine Blood Large (Negative) H 07/22/19 16:33 Ur Leukocyte Esterase Moderate (Negative) H 07/22/19 16:33 Urine Microscopic RBC 50-100 per hpf (0-3) H 07/22/19 16:33 Urine Microscopic WBC 30-50 per hpf (0-3) H 07/22/19 16:33 Urine Yeast Many per hpf (None Seen) H 07/22/19 16:33 Ur Culture Indicated? YES (NO) A 07/22/19 16:33 - Microbiology Findings Microbiology Findings: Microbiology, Last 48 Hours 07/22/19 16:33 Urine Culture - Preliminary Urine,Clean Catch Culture is incubating. 07/21/19 21:15 Blood Culture - Preliminary Peripheral Venipuncture Culture is incubating and being continuously monitored for growth. Final report to follow. 07/21/19 21:15 Blood Culture - Preliminary Peripheral Venipuncture Culture is incubating and being continuously monitored for growth. Final report to follow. - Clinical Findings Intake & Output: Intake & Output 07/22/19 07/23/19 07/23/19 23:59 07:59 15:59 Intake Total 2561 / 6615 1538 / 1896 358 / 1896 Output Total 778 / 916 1418 / 2154 736 / 2154 Balance 1783 / 5699 120 / -258 -378 / -258 Weight 123.8 kg 123.8 kg Consult Discharge Plan - Plan Referrals: Rajni Levy, [employer] APPLIER [Primary Care Provider] - <Alex Rodriguez - Last Filed: 07/23/19 21:59> Date of Encounter: 07/23/19 Objective PUL Vital signs: Last Vital Signs Temp 96.7 F L 07/23/19 20:13 Pulse 78 07/23/19 21:00 Resp 20 07/23/19 21:00 BP 124/104 07/23/19 21:00 Pulse Ox 96 07/23/19 21:00 Results - Laboratory Findings CBC and BMP: 07/23/19 11:29 07/23/19 03:18 ABG ABG pH 7.27 pH Units (7.32-7.45) L 07/22/19 08:23 ABG pCO2 23 mmHg (35-45) L 07/22/19 08:23 ABG pO2 86 mmHg (85-104) 07/22/19 08:23 ABG O2 Saturation 95 % (95-98) 07/22/19 08:23 PT/INR, D-dimer PT 10.5 Seconds (9.4-12.1) 07/23/19 11:29 Abnormal lab findings: Abnormal lab results WBC 15.3 K/mcL (4.3-11.1) H 07/22/19 06:21 RBC 3.40 M/mcL (3.82-4.97) L 07/23/19 11:29 Hgb 9.9 g/dL (11.5-15.4) L 07/23/19 11:29 Hct 30.0 % (35.3-44.9) L 07/23/19 11:29 MCHC 30.3 g/dL (31.6-35.5) L 07/22/19 06:21 RDW 14.8 % (11.5-14.5) H 07/22/19 06:21 Neutrophils # 12.8 K/mcL (1.6-8.9) H 07/22/19 06:21 Haptoglobin 224 mg/dL (30-200) H 07/22/19 12:31 Heparin Anti-Xa, Unfract 0.02 IU/mL (0.30-0.70) L 07/23/19 11:29 ABG pH 7.27 pH Units (7.32-7.45) L 07/22/19 08:23 ABG pCO2 23 mmHg (35-45) L 07/22/19 08:23 ABG HCO3 10 mEq/L (21-27) L 07/22/19 08:23 ABG Total CO2 11 mEq/L (20-26) L 07/22/19 08:23 ABG Base Excess -15 mEq/L (-2 to 3) L 07/22/19 08:23 Potassium 5.2 mEq/L (3.5-5.1) H 07/22/19 04:06 Carbon Dioxide 20 mEq/L (23-29) L 07/22/19 16:22 BUN 52 mg/dL (6-20) H 07/23/19 03:18 Creatinine 7.03 mg/dL (0.60-1.20) H 07/23/19 03:18 Est GFR ( Amer) 7 (> 60) L 07/23/19 03:18 Est GFR (Non-Af Amer) 6 (> 60) L 07/23/19 03:18 Glucose 173 mg/dL (70-105) H 07/23/19 03:18 POC Glucose 148 mg/dL (70-99) H 07/23/19 18:52 Calculated Osmolality 306 (280-300) H 07/23/19 03:18 Lactic Acid 4.8 mmol/L (0.5-2.2) H* 07/22/19 12:31 Uric Acid 14.1 mg/dL (2.3-7.6) H 07/22/19 12:31 Calcium 8.3 mg/dL (8.6-10.3) L 07/23/19 03:18 Venous Ioniz Calcium 1.08 mmol/L (1.15-1.35) L 07/23/19 08:47 Phosphorus 10.1 mg/dL (2.7-4.5) H 07/21/19 19:06 AST 50 Units/L (13-39) H 07/23/19 03:18 Lactate Dehydrogenase 135 Units/L (140-271) L 07/22/19 12:31 Troponin I 7.97 ng/mL (< 0.04) H* 07/23/19 11:15 Serum Total Protein 5.6 g/dL (6.4-8.9) L 07/23/19 03:18 Albumin 3.2 g/dL (3.5-5.7) L 07/23/19 03:18 Procalcitonin 0.41 ng/mL (0.00-0.15) H 07/21/19 21:17 Free T4 0.48 ng/dl (0.70-2.00) L 07/22/19 12:31 Thyroxine (T4) 4.86 mcg/dL (5.50-11.00) L 07/22/19 12:31 Free T3 1.48 pg/mL (2.50-3.90) L 07/22/19 12:31 Total T3 0.58 ng/mL (0.87-1.78) L 07/22/19 12:31 Urine Clarity Hazy (Clear) A 07/22/19 16:33 Urine Protein 100 mg/dL (Neg-Trace) H 07/22/19 16:33 Urine Blood Large (Negative) H 07/22/19 16:33 Ur Leukocyte Esterase Moderate (Negative) H 07/22/19 16:33 Urine Microscopic RBC 50-100 per hpf (0-3) H 07/22/19 16:33 Urine Microscopic WBC 30-50 per hpf (0-3) H 07/22/19 16:33 Urine Yeast Many per hpf (None Seen) H 07/22/19 16:33 Ur Culture Indicated? YES (NO) A 07/22/19 16:33 - Microbiology Findings Microbiology Findings: Microbiology, Last 48 Hours 07/22/19 16:33 Urine Culture - Preliminary Urine,Clean Catch Gram Positive Cocci 07/21/19 21:15 Blood Culture - Preliminary Peripheral Venipuncture Culture is incubating and being continuously monitored for growth. Final report to follow. 07/21/19 21:15 Blood Culture - Preliminary Peripheral Venipuncture Culture is incubating and being continuously monitored for growth. Final report to follow. - Clinical Findings Intake & Output: Intake & Output 07/23/19 07/23/19 07/23/19 07:59 15:59 23:59 Intake Total 1538 / 8516 1508 / 8516 5470 / 8516 Output Total 1418 / 4572 2039 / 4572 1115 / 4572 Balance 120 / 3944 -531 / 3944 4355 / 3944 Weight 123.8 kg - Attending Attestation - Attending Attestation I saw and evaluated this patient and my medical decision-making was reviewed with the Resident Physician. I agree with the documented findings, disposition and treatment plan as described except to the extent set forth below. We independently had [id number] contact with the patient I spent 35 minutes of Critical Care time with this patient. It involved decision making of high complexity to assess, manipulate, and support vital organ system failure and/or to prevent further life threatening deterioration of the patient's condition. The time involved in the performance of separately reportable procedures was not counted toward critical care time. Patient seen and examined at bedside Labs, radiology, chart personally reviewed. Management was reviewed during multidisciplinary critical care rounds. 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: Patient has encephalopathy responding to verbal stimuli answering some questions with one-word answers patient is episodically confused since patient had the previous seizures disorder to continue the anti-epileptic medication will consult neurology ECG did not show any evidence of seizure activity most likely toxic/metabolic encephalopathy 07/23 patient is more alert conscious oriented follows commands able to participate in the complicated medical decision-making Pulm: Patient has acceptable oxygenation and ventilation patient is primarily metabolic acidosis with inadequate consult compensation will closely monitor patient is on vasopressor therapy patient has a high risk for respiratory failure and need for intubation and mechanical ventilation. Patient V/Q mismatch is complicated by left sided bandlike consolidation 07/23 patient is supple oxygenation and ventilation patient has this bandlike consolidation cover with broad-spectrum antibiotics. Cards: Patient is an most likely septic shock the troponin leak might be subendocardial ischemia or acute coronary syndrome cardiology was consulted patient to get limited echocardiogram to look for wall motion abnormalities troponin is slowly trending up to there is wall motion abnormalities. With IV heparin drip according to cardiology no cardiac catheterization for now. Patient is on norepinephrine drip most likely due to septic shock possible pneumonia source 07/23 patient shock has resolved hemodynamically stable patient is tolerating CVVH. Patient has troponins leak with peak at 10 discuss with cardiology patient will undergo cardiac catheterization. FEN-GI: We will keep her nothing by mouth IV PPI, CT abdomen pelvis shows some evidence of colitis with a lactic acidosis concern for ischemic colitis surgery was consulted to continue IV antibiotics for ischemic bowel at this point appreciate surgery input. will keep her NPO Renal: Patient has acute on chronic kidney injury with severe non-gap acidosis and hyperkalemia due to hemodynamic instability but stability Patient is started on CVVH 07/23 to continue CVVH. ID: To cover with broad-spectrum antibiotics and follow cultures de-escalate according to cultures. Heme/Onc: Labs reviewed Endo: Glucose Monitored , to continue insulin therapy patient might have some type II lactic acidosis lactic acid is trending down cortisol random was around 11 related to adrenal insufficiency started on hydrocortisone 50 mg every 6. Integ/MSK: Skin Care per routine ICU Nursing Protocol to prevent ulcers. Lines: All lines examined without evidence of infection : Dispo: CODE:Full Code
[2019-07-23 11:38] LABS: Hemoglobin 9.9 g/dL (11.5-15.4); Mean Corpuscular Hemoglobin 29.1 pg (28.0-33.3); Mean Corpuscular Volume 88.2 fL (83.0-100.0); Mean Platelet Volume 9.6 fL (9.4-12.4); Platelet Count 196 K/mcL (140-400); Red Cell Distribution Width 14.3 % (11.5-14.5); White Blood Count 8.2 K/mcL (4.3-11.1)
[2019-07-23 11:53] LABS: INR 0.9; Prothrombin Time 10.5 Seconds (9.4-12.1)
[2019-07-23 11:55] LABS: Heparin anti-factor XA UFH 0.02 IU/mL (0.30-0.70)
[2019-07-23] MEDS ORDERED: 0.9 % Sodium Chloride 1,000 ML ONE (12:34)
[2019-07-23] MEDS ORDERED: Nitroglycerin 1,000 MCG/10 ML VIAL IV ONE (12:35)
[2019-07-23] MEDS ORDERED: *HR* Heparin 10,000 UNIT/10 ML VIAL ONE (12:35)
[2019-07-23] MEDS ORDERED: Iopamidol 125 ML INFUS..BTL ONE (12:35)
[2019-07-23] MEDS ORDERED: Heparin 1,000 UNITS/500 mL 0 ML ONE (12:35)
--- NOTE | 2019-07-23 12:35 | Pre-Sedation Evaluation ---
Pre-sedation evaluation - Pre-sedation checklist Date of procedure: 07/22/19 Procedure: [facility] Recent Vitals: Last Vital Signs Temp 97.9 F 07/23/19 12:00 Pulse 71 07/23/19 12:00 Resp 20 07/23/19 12:00 BP 135/76 07/23/19 12:00 Pulse Ox 97 07/23/19 12:00 H&P (including ROS) documented in medical record: Yes Previous reaction to sedatives/anesthetics: No Dietary Status: NPO after Midnight Dentition: dentures removed ASA Classification *see protocol: CLASS II-Mild systemic disease Plan of Care: Pt appropriate candidate for procedure/moderate/conscious sedation, Risks/benefits of procedure/sedation discussed w/ patient/family Cardiac Registry (Cardio Only) - Functional Capacity Functional Capacity: >=4 METS with symptoms - Clincal Frailty Scale Clinical Frailty Scale: Managing Well
[2019-07-23] MEDS ORDERED: *HR* Heparin 5,000 UNIT/ML VIAL ONE ×2 (12:40→22:17)
[2019-07-23] MEDS: Heparin 25,000 UNIT/250 ML D5W 25,000 UNIT/250 ML IV.SOLN IVC SCH (13:15)
[2019-07-23] MEDS: *HR* Acetylcysteine 20% 600 MG/3 ML ORAL SYRINGE PO SCH ×2 (13:30→20:19)
--- NOTE | 2019-07-23 14:57 | Internal Med Progress Note ---
Hospitalist Progress Note - Encounter Date of Encounter: 07/23/19 Time of Encounter: 15:02 - Subjective Interval History: Ms. Pisano is a 53 year old female who was recently discharged from our facility on 07/15/2019. Patient has a history of diabetes mellitus type 2, hypertension, hyperlipidemia, seizures, chronic kidney disease stage III, chronic pain, obesity. During her last admission she was admitted for altered mental status, with a blank stare. He had an extensive evaluation occluding urine drug screen at that time which was negative. She was noted to have a CK level and a benign 100s and acute kidney injury with a creatinine of 3.5 range. She was treated for urinary tract infection and on arrival to our facility at that time had ge neralized seizures. In by neurology and nephrology at this time. She had an EEG which showed generalized seizure disorder. Patient had been on Topamax 300 mg twice a day, and was having altered mental status from this and thus neurology decrease her Topamax to 100 mg twice a day. Patient was aggressively hydrated, her renal function improved back to near baseline at 1.8 creatinine, and her CK normalized. Pt was sent home to continue a course of Cefdinir for urinary tract infection. Patient presented to [facility] emergency room today with altered mental status. Per the ER physician the only verbal response patient would give was "my hips, my face". She could not explain what she meant by this or provide any further history. Patient otherwise had a fairly blank stare no witnessed seizure activity. Patient had extensive workup while at [facility] emergency room including a CT of her hips CT of her head which showed no acute process. Chest x-ray was negative. Her vital signs on presentation showed her to be initially hypotensive with a blood pressure in the 70 systolic which improved after 1 L of IV fluids. She was satting well on room air. Laboratory studies showed a white count of 16.9, hemoglobin 12.4 platelets 341,000. 66 segs, 27 lymphs, 5 monos. Sodium 134 potassium 5.8 chloride 101 CO2 10. 79 creatinine 11.5 glucose 141 liver enzymes normal ammonia 32 CK 126 lactic ac id 3.2. Patient was treated with D50, insulin and bicarbonate 1 amp for her hyperkalemia. A repeat BMP showed her electrolytes not significant weight change except for potassium slightly increased now 6.2. Patient was given 2 L of IV fluids and sent here for further treatment. 9/25: Patient has shown significant improvement today from a mentation standpoint. She still has a mild delirium tremens since she is awake alert and oriented 3. Patient started on CRRT yesterday, this morning her numbers are improving and she has had good urine output, previously this she was anuric. Unfortunately her troponin continued to rise to a peak of 10.77, now is trending down. Cardiology is aware and is planning for left heart catheterization. She is now started on a heparin drip for non-STEMI. Patient is denying any chest pain or shortness of breath. No nausea vomiting. No fevers or chills. Other than that mentioned above a 10 point review of systems is negative although somewhat limited as she still has some delirium - Exam Vitals: Temp Pulse Resp BP Pulse Ox 97.9 F 70 20 138/70 97 07/23/19 12:00 07/23/19 14:00 07/23/19 14:00 07/23/19 14:00 07/23/19 14:00 Exam: Obese, no acute distress, delerium - Head Head exam: Present: atraumatic, normocephalic - Eye Eye exam: Present: PERRL, conjuntiva pink, sclera anicteric Pupils: Present: PERRL - Neck Neck exam general surgery: Present: supple, trachea midline. Absent: lymphadenopathy - Respiratory Respiratory exam: Present: CTAB (Dimin bs bases). Absent: accessory muscle use, rales, rhonchi, wheezes - Cardiovascular Cardiovascular exam: Present: RRR, +S1, +S2. Absent: diastolic murmur, gallop, rubs, systolic murmur - GI/Abdominal GI/Abdominal exam: Present: normal bowel sounds, soft, no peritoneal signs. Absent: distended, tenderness - Extremities Exam Extremities exam: Present: warm, radial pulses palpable and symmetrical. Ab sent: calf tenderness, cyanotic, pedal edema - Neurological Exam Neurological exam: Present: CN II-XII intact, oriented X3 (oriented x 2, vague answers to questions, answers with repeated questioning), no focal deficits. Absent: pronater drift, facial droop, speech deficit - Skin Skin exam: Present: dry, intact (Cap refill <2.5 sec) - Summary of Assessment and Plan Summary of Assessment and Plan: Acute kidney injury -Patient had a catheter placed, will monitor urine output closely. I do not see any documented, will verify -Stat renal sonogram rule out obstruction -High concern for HTN -Continue with IV fluids, likely will add sodium bicarbonate -I discussed the case with Dr. Comer in nephrology who will see this patient in AM 07/23: Receiving CRRT. I discussed the case with Dr. Comer today. Patient will continue his CRRT Anion gap metabolic acidosis -Multifactorial, I do see metformin on her medication list will need to verify that she is still not on this -Could be related to seizures -Urine drug screen ordered, Tylenol level ordered. 07/23: Improved -bicarb drip stopped NonSTEMI -cardiology planning [facility] -heparin drip started, asa, lipitor, no BB due to hypotension Hyperkalemia -Patient received acute treatment for this -potassium remains elevated, ice discuss this with the emergency department and would recommend an additional acute treatment prior to transfer -will place patient on additional bicarbonate all fully correct her metabolic acidosis which is likely at least significantly contributing to her hyperkalemia -She did not show any EKG changes 07/23: Improved Acute gastroenteritis -Maybe a viral presentation, rule out infection -She does have a leukocytosis, I will check a flat plate abdomen -Patient does not have a fever, but she does have a leukocytosis, elevated lactic acid -Urine looks clear -Cannot rule out a GI infection, bacterial. Therefore I will start patient empirically on renally dosed Zosyn. -Cannot perform a CT abdomen with contrast due to acute kidney injury -check C Diff Toxin assay, add enteric Vnco until C Diff ruled out, leif while ongoing abx 07/23: Day #3 IV Zosyn for colitis. May stop soon. Altered mental status -Possibly related to have recurrent seizures, polypharmacy -improving Seizures -Continue on her Topamax at reduced dose, consult neurology, check EEG. ?Metformin Toxicity -Patient states she has been taking metformin for back pain. She has a very difficult historian. I do see that metformin was listed as one of her discharge medications, she does have chronic kidney disease stage III -DC metformin indefinitely, monitor blood sugar levels, monitor acid base status Chronic pain -We evaluate her pain medication list as ischemic contribute to her altered mental status Diabetes mellitus type 2 -Sliding-scale insulin DVT prophylaxis -heparin Sub Q Morbid Obesity Full code - Time Spent with Patient Total time spent is greater than 50% in coordination of care (as documented) at patient's floor/unit and/or counseling patient: Greater than 35 minutes Internal Medicine: Result - Labs CBC & Chem 7: 07/23/19 11:29 07/23/19 03:18 Labs: Short CBC 07/23/19 07/23/19 Range/Units 03:40 11:29 WBC 8.5 8.2 (4.3-11.1) K/mcL Hgb 9.5 L 9.9 L (11.5-15.4) g/dL Hct 28.9 L 30.0 L (35.3-44.9) % Plt Count 209 196 (140-400) K/mcL Neutrophils # 6.4 (1.6-8.9) K/mcL BMP 07/22/19 07/23/19 16:22 03:18 Sodium 140 139 Potassium 4.1 4.2 Chloride 102 102 Carbon Dioxide 20 L 25 BUN 90 H 52 H Creatinine 12.57 H 7.03 H Glucose 194 H 173 H Calcium 8.2 L 8.3 L Cardiac Enzymes 07/22/19 07/22/19 07/23/19 Range/Units 16:22 21:10 03:18 Troponin I 1.97 H* 6.77 H* 10.77 H* (< 0.04) ng/mL 07/23/19 07/23/19 Range/Units 08:15 11:15 Troponin I 9.00 H* 7.97 H* (< 0.04) ng/mL Liver Function 07/23/19 Range/Units 03:18 Total Bilirubin 0.4 (0.3-1.0) mg/dL AST 50 H (13-39) Units/L ALT 11 (7-52) Units/L Alkaline Phosphatase 65 (34-104) Units/L Albumin 3.2 L (3.5-5.7) g/dL Urine 07/22/19 Range/Units 16:33 Urine Color Yellow (Yellow) Urine Clarity Hazy A (Clear) Urine pH 5.5 (5.0-8.0) pH Units Ur Specific [place] 1.019 (1.010-1.025) Urine Protein 100 H (Neg-Trace) mg/dL Urine Glucose (UA) Normal (Normal) mg/dL - ABG Interpretation ABG results: ABG ABG pH 7.27 pH Units (7.32-7.45) L 07/22/19 08:23 ABG pCO2 23 mmHg (35-45) L 07/22/19 08:23 ABG pO2 86 mmHg (85-104) 07/22/19 08:23 ABG O2 Saturation 95 % (95-98) 07/22/19 08:23 PT/INR, D-dimer PT 10.5 Seconds (9.4-12.1) 07/23/19 11:29 - Impressions Impressions Chest X-Ray 07/22/19 13:45 IMPRESSION: Right IJ central venous catheter tip projects over the superior cavoatrial junction. No pneumothorax. Pulmonary edema and bilateral atelectasis. D/ / 07/22/2019 14:02:11 Sapna Demarco MD / jerri Interpreting Provider: Sapna Demarco MD Echocardiogram Limited Views 07/22/19 17:00 Impressions: LVEF 70%. Normal LV chamber size and function. Left Ventricular Wall Motion: Rest Echo Findings All wall segments showed normal motion. Findings: Study Quality * Technically sub-optimal due to poor echocardiographic windows. ECG Findings * Normal sinus rhythm. Left Ventricle * LVEF 70%. * Normal LV chamber size and function. Right Ventricle * Right ventricle was not well visualized. Pericardium * The pericardium appears normal. Consult Discharge Plan - Plan Referrals: Rajni Levy, [facility] ANALYST [Primary Care Provider] -
--- NOTE | 2019-07-23 21:37 | Electrocardiograph Report ---
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
--- NOTE | 2019-07-23 21:40 | Electrocardiograph Report ---
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
--- NOTE | 2019-07-23 21:46 | Electrocardiograph Report ---
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
[2019-07-23] MEDS: *HR* Heparin 5,000 UNIT/ML VIAL CRRT PRN ×2 (22:15→22:38)
[2019-07-24 02:27] LABS: Basophils % 0.4 %; Eosinophils # 0.1 K/mcL (0.0-0.6); Eosinophils % 0.8 %; Hematocrit 28.6 % (35.3-44.9); Hemoglobin 9.5 g/dL (11.5-15.4); Immature Granulocytes % 0.3 % (0-4); Lymphocytes # 1.5 K/mcL (0.6-4.6); Lymphocytes % 19.9 %; Mean Corpuscular HGB Conc 33.2 g/dL (31.6-35.5); Mean Corpuscular Hemoglobin 29.5 pg (28.0-33.3); Mean Corpuscular Volume 88.8 fL (83.0-100.0); Mean Platelet Volume 9.7 fL (9.4-12.4); Monocytes # 0.5 K/mcL (0.0-1.3); Monocytes % 7.1 %; Neutrophils # 5.4 K/mcL (1.6-8.9); Platelet Count 183 K/mcL (140-400); Red Blood Count 3.22 M/mcL (3.82-4.97); Red Cell Distribution Width 14.1 % (11.5-14.5); Segmented Neutrophils % 71.5 %; White Blood Count 7.6 K/mcL (4.3-11.1)
[2019-07-24] MEDS: PrismaSATE BGK 4/2.5 5,000 ML CRRT SCH ×14 (02:30→23:17)
[2019-07-24 02:34] LABS: VBG HCO3 29 mEq/L (21-27); VBG PCO2 50 mmHg (41-51); VBG PH 7.38 pH Units (7.32-7.42); VBG PO2 78 mmHg (25-50)
[2019-07-24 02:35] LABS: Heparin anti-factor XA UFH 0.71 IU/mL (0.30-0.70)
[2019-07-24 03:13] LABS: Albumin 3.3 g/dL (3.5-5.7); Albumin/Globulin Ratio 1.2 (1.1-2.2); Bilirubin,Total 0.4 mg/dL (0.3-1.0); Calcium 8.5 mg/dL (8.6-10.3); Globulin 2.8 g/dL (2.4-3.5); Potassium 3.9 mEq/L (3.5-5.1); Total Protein 6.1 g/dL (6.4-8.9)
[2019-07-24] MEDS: Insulin LISPRO 300 UNITS/3 ML VIAL SQ SCH ×5 (04:20→20:26)
[2019-07-24] MEDS: Hydrocortisone Sodium Succ 100 MG/2 ML VIAL IVP SCH (05:57)
[2019-07-24 07:36] LABS: Prothrombin Time 11.1 Seconds (9.4-12.1)
[2019-07-24] MEDS: Aspirin Enteric Coated 81 MG Tablet PO SCH (08:29)
[2019-07-24] MEDS: Piperacillin/Tazobactam 3.375 GM in 0.9 % Sodium Chloride Mini Bag 100 ML IVPB SCH (08:29)
[2019-07-24] MEDS: Topiramate 100 MG TABLET PO SCH ×2 (08:29→20:09)
[2019-07-24] MEDS: *HR* Acetylcysteine 20% 600 MG/3 ML ORAL SYRINGE PO SCH ×2 (08:35→20:09)
--- NOTE | 2019-07-24 09:07 | Neurology Progress Note ---
<Danni Colón N - Last Filed: 07/24/19 11:42> Date of Encounter: 07/24/19 Time of Encounter: 09:07 Assessment and Plan (1) Acute encephalopathy Current Visit: Yes Status: Resolved Improving. Recommend continued management for infection and acute renal failure per primary and nephrology teams. Continue topiramate 100mg BID. Neurology will sign off; please call if any questions. (2) History of seizure disorder Current Visit: Yes Status: Acute Subjective Principal diagnosis: AMS Interval history: Ms. Pisano was seen and evaluated at the bedside this morning. She is alert and oriented x3, and able to respond to questions appropriately today. She is currently awaiting [facility] and denies any acute complaints or concerns at this time. Objective - Constitutional Vitals: Temp Pulse Resp BP Pulse Ox 97.4 F L 68 19 151/80 95 07/24/19 00:00 07/24/19 09:00 07/24/19 09:00 07/24/19 09:00 07/24/19 09:00 General appearance: Present: A&O X 3, pleasant, no acute distress, answers questions appropriately - Neurological Exam Motor Examination: Present: grossly full strength in all extremities, full strength in all major muscle groups Sensation intact: Present: intact, light touch Mental Status Examination: Present: awake, alert, oriented to person, oriented to place, oriented to time, follows commands appropriately, answers questions appropriately, no aphasia, makes eye contact Cranial nerve examination: Present: PERRL, EOMI, tongue protrudes midline Results - Laboratory Findings CBC and BMP: 07/24/19 02:05 07/24/19 02:05 Abnormal lab findings: Abnormal lab results WBC 15.3 K/mcL (4.3-11.1) H 07/22/19 06:21 RBC 3.22 M/mcL (3.82-4.97) L 07/24/19 02:05 Hgb 9.5 g/dL (11.5-15.4) L 07/24/19 02:05 Hct 28.6 % (35.3-44.9) L 07/24/19 02:05 MCHC 30.3 g/dL (31.6-35.5) L 07/22/19 06:21 RDW 14.8 % (11.5-14.5) H 07/22/19 06:21 Neutrophils # 12.8 K/mcL (1.6-8.9) H 07/22/19 06:21 Haptoglobin 224 mg/dL (30-200) H 07/22/19 12:31 Heparin Anti-Xa, Unfract 0.71 IU/mL (0.30-0.70) H 07/24/19 02:00 ABG pH 7.27 pH Units (7.32-7.45) L 07/22/19 08:23 ABG pCO2 23 mmHg (35-45) L 07/22/19 08:23 ABG HCO3 10 mEq/L (21-27) L 07/22/19 08:23 ABG Total CO2 11 mEq/L (20-26) L 07/22/19 08:23 ABG Base Excess -15 mEq/L (-2 to 3) L 07/22/19 08:23 VBG pO2 78 mmHg (25-50) H 07/24/19 02:31 VBG HCO3 29 mEq/L (21-27) H 07/24/19 02:31 Potassium 5.2 mEq/L (3.5-5.1) H 07/22/19 04:06 Carbon Dioxide 20 mEq/L (23-29) L 07/22/19 16:22 BUN 23 mg/dL (6-20) H 07/24/19 02:05 Creatinine 3.28 mg/dL (0.60-1.20) H 07/24/19 02:05 Est GFR ( Amer) 18 (> 60) L 07/24/19 02:05 Est GFR (Non-Af Amer) 15 (> 60) L 07/24/19 02:05 Glucose 152 mg/dL (70-105) H 07/24/19 02:05 POC Glucose 131 mg/dL (70-99) H 07/24/19 08:38 Calculated Osmolality 306 (280-300) H 07/23/19 03:18 Lactic Acid 4.8 mmol/L (0.5-2.2) H* 07/22/19 12:31 Uric Acid 14.1 mg/dL (2.3-7.6) H 07/22/19 12:31 Calcium 8.5 mg/dL (8.6-10.3) L 07/24/19 02:05 Venous Ioniz Calcium 1.08 mmol/L (1.15-1.35) L 07/23/19 08:47 Phosphorus 10.1 mg/dL (2.7-4.5) H 07/21/19 19:06 AST 50 Units/L (13-39) H 07/23/19 03:18 Lactate Dehydrogenase 135 Units/L (140-271) L 07/22/19 12:31 Troponin I 7.97 ng/mL (< 0.04) H* 07/23/19 11:15 Serum Total Protein 6.1 g/dL (6.4-8.9) L 07/24/19 02:05 Albumin 3.3 g/dL (3.5-5.7) L 07/24/19 02:05 Procalcitonin 0.26 ng/mL (0.00-0.15) H 07/24/19 02:05 Free T4 0.48 ng/dl (0.70-2.00) L 07/22/19 12:31 Thyroxine (T4) 4.86 mcg/dL (5.50-11.00) L 07/22/19 12:31 Free T3 1.48 pg/mL (2.50-3.90) L 07/22/19 12:31 Total T3 0.58 ng/mL (0.87-1.78) L 07/22/19 12:31 Urine Clarity Hazy (Clear) A 07/22/19 16:33 Urine Protein 100 mg/dL (Neg-Trace) H 07/22/19 16:33 Urine Blood Large (Negative) H 07/22/19 16:33 Ur Leukocyte Esterase Moderate (Negative) H 07/22/19 16:33 Urine Microscopic RBC 50-100 per hpf (0-3) H 07/22/19 16:33 Urine Microscopic WBC 30-50 per hpf (0-3) H 07/22/19 16:33 Urine Yeast Many per hpf (None Seen) H 07/22/19 16:33 Ur Culture Indicated? YES (NO) A 07/22/19 16:33 Consult Discharge Plan - Plan Referrals: Rajni Levy, PUBLIC FINANCE SPECIALIST [Primary Care Provider] - <Rene Fraga I - Last Filed: 07/24/19 15:52> Date of Encounter: 07/24/19 Assessment and Plan (1) Encephalopathy acute Current Visit: No Status: Acute (2) Acute encephalopathy Current Visit: Yes Status: Resolved Pt was seen and examined, my medical decision was reviewed with the Resident Physician, I agree with the documented findings, disposition and treatment plan, as described except to the extent set forth below Patient is neurologically stable had seen Dr. Gonzalez in the past follow-up with Dr. Gonzalez after discharge continue on Topamax for now Rene Fraga MD Objective - Constitutional Vitals: Temp Pulse Resp BP Pulse Ox 97.3 F L 68 19 137/79 96 07/24/19 12:00 07/24/19 15:00 07/24/19 15:00 07/24/19 15:00 07/24/19 15:00 Results - Laboratory Findings CBC and BMP: 07/24/19 02:05 07/24/19 02:05 Abnormal lab findings: Abnormal lab results WBC 15.3 K/mcL (4.3-11.1) H 07/22/19 06:21 RBC 3.22 M/mcL (3.82-4.97) L 07/24/19 02:05 Hgb 9.5 g/dL (11.5-15.4) L 07/24/19 02:05 Hct 28.6 % (35.3-44.9) L 07/24/19 02:05 MCHC 30.3 g/dL (31.6-35.5) L 07/22/19 06:21 RDW 14.8 % (11.5-14.5) H 07/22/19 06:21 Neutrophils # 12.8 K/mcL (1.6-8.9) H 07/22/19 06:21 Haptoglobin 224 mg/dL (30-200) H 07/22/19 12:31 Heparin Anti-Xa, Unfract 0.22 IU/mL (0.30-0.70) L 07/24/19 09:00 ABG pH 7.27 pH Units (7.32-7.45) L 07/22/19 08:23 ABG pCO2 23 mmHg (35-45) L 07/22/19 08:23 ABG HCO3 10 mEq/L (21-27) L 07/22/19 08:23 ABG Total CO2 11 mEq/L (20-26) L 07/22/19 08:23 ABG Base Excess -15 mEq/L (-2 to 3) L 07/22/19 08:23 VBG pO2 78 mmHg (25-50) H 07/24/19 02:31 VBG HCO3 29 mEq/L (21-27) H 07/24/19 02:31 Potassium 5.2 mEq/L (3.5-5.1) H 07/22/19 04:06 Carbon Dioxide 20 mEq/L (23-29) L 07/22/19 16:22 BUN 23 mg/dL (6-20) H 07/24/19 02:05 Creatinine 3.28 mg/dL (0.60-1.20) H 07/24/19 02:05 Est GFR ( Amer) 18 (> 60) L 07/24/19 02:05 Est GFR (Non-Af Amer) 15 (> 60) L 07/24/19 02:05 Glucose 152 mg/dL (70-105) H 07/24/19 02:05 POC Glucose 128 mg/dL (70-99) H 07/24/19 12:26 Calculated Osmolality 306 (280-300) H 07/23/19 03:18 Lactic Acid 4.8 mmol/L (0.5-2.2) H* 07/22/19 12:31 Uric Acid 14.1 mg/dL (2.3-7.6) H 07/22/19 12:31 Calcium 8.5 mg/dL (8.6-10.3) L 07/24/19 02:05 Venous Ioniz Calcium 1.08 mmol/L (1.15-1.35) L 07/23/19 08:47 Phosphorus 10.1 mg/dL (2.7-4.5) H 07/21/19 19:06 AST 50 Units/L (13-39) H 07/23/19 03:18 Lactate Dehydrogenase 135 Units/L (140-271) L 07/22/19 12:31 Troponin I 7.97 ng/mL (< 0.04) H* 07/23/19 11:15 Serum Total Protein 6.1 g/dL (6.4-8.9) L 07/24/19 02:05 Albumin 3.3 g/dL (3.5-5.7) L 07/24/19 02:05 Procalcitonin 0.26 ng/mL (0.00-0.15) H 07/24/19 02:05 Free T4 0.48 ng/dl (0.70-2.00) L 07/22/19 12:31 Thyroxine (T4) 4.86 mcg/dL (5.50-11.00) L 07/22/19 12:31 Free T3 1.48 pg/mL (2.50-3.90) L 07/22/19 12:31 Total T3 0.58 ng/mL (0.87-1.78) L 07/22/19 12:31 Urine Color Red (Yellow) A 07/24/19 11:00 Urine Clarity Hazy (Clear) A 07/24/19 11:00 Urine Protein 30 mg/dL (Neg-Trace) H 07/24/19 11:00 Urine Ketones Trace mg/dL (Negative) H 07/24/19 11:00 Urine Blood Large (Negative) H 07/24/19 11:00 Ur Leukocyte Esterase Large (Negative) H 07/24/19 11:00 Urine Microscopic RBC 50-100 per hpf (0-3) H 07/24/19 11:00 Urine Microscopic WBC 5-15 per hpf (0-3) H 07/24/19 11:00 Urine Bacteria Moderate per hpf (None-Few) H 07/24/19 11:00 Urine Yeast Few per hpf (None Seen) H 07/24/19 11:00 Ur Culture Indicated? YES (NO) A 07/24/19 11:00 Tot Complement (CH50) 171 Units (60-144) H 07/22/19 12:31
[2019-07-24 10:16] LABS: ANA IgG by ELISA NONE DETECTED (None Detected); Anti-Streptolysin O Antibody 98 IU/mL (0-330); Serine Protease-3 Antibody 7 AU/mL (0-19)
[2019-07-24] MEDS ORDERED: *HR* Heparin 5,000 UNIT/ML VIAL IVP PRN (10:54)
--- NOTE | 2019-07-24 11:17 | Pulmonology Progress Note ---
<ArvinronybetoAlex S - Last Filed: 07/24/19 22:39> Date of Encounter: 07/24/19 Objective PUL Vital signs: Last Vital Signs Temp 97.6 F 07/24/19 21:00 Pulse 70 07/24/19 22:00 Resp 18 07/24/19 22:00 BP 125/85 07/24/19 22:00 Pulse Ox 93 07/24/19 22:00 Results - Laboratory Findings CBC and BMP: 07/24/19 02:05 07/24/19 02:05 ABG ABG pH 7.27 pH Units (7.32-7.45) L 07/22/19 08:23 ABG pCO2 23 mmHg (35-45) L 07/22/19 08:23 ABG pO2 86 mmHg (85-104) 07/22/19 08:23 ABG O2 Saturation 95 % (95-98) 07/22/19 08:23 PT/INR, D-dimer PT 11.1 Seconds (9.4-12.1) 07/24/19 02:00 Abnormal lab findings: Abnormal lab results WBC 15.3 K/mcL (4.3-11.1) H 07/22/19 06:21 RBC 3.22 M/mcL (3.82-4.97) L 07/24/19 02:05 Hgb 9.5 g/dL (11.5-15.4) L 07/24/19 02:05 Hct 28.6 % (35.3-44.9) L 07/24/19 02:05 MCHC 30.3 g/dL (31.6-35.5) L 07/22/19 06:21 RDW 14.8 % (11.5-14.5) H 07/22/19 06:21 Neutrophils # 12.8 K/mcL (1.6-8.9) H 07/22/19 06:21 Haptoglobin 224 mg/dL (30-200) H 07/22/19 12:31 Heparin Anti-Xa, Unfract 0.26 IU/mL (0.30-0.70) L 07/24/19 18:40 ABG pH 7.27 pH Units (7.32-7.45) L 07/22/19 08:23 ABG pCO2 23 mmHg (35-45) L 07/22/19 08:23 ABG HCO3 10 mEq/L (21-27) L 07/22/19 08:23 ABG Total CO2 11 mEq/L (20-26) L 07/22/19 08:23 ABG Base Excess -15 mEq/L (-2 to 3) L 07/22/19 08:23 VBG pO2 78 mmHg (25-50) H 07/24/19 02:31 VBG HCO3 29 mEq/L (21-27) H 07/24/19 02:31 Potassium 5.2 mEq/L (3.5-5.1) H 07/22/19 04:06 Carbon Dioxide 20 mEq/L (23-29) L 07/22/19 16:22 BUN 23 mg/dL (6-20) H 07/24/19 02:05 Creatinine 3.28 mg/dL (0.60-1.20) H 07/24/19 02:05 Est GFR ( Amer) 18 (> 60) L 07/24/19 02:05 Est GFR (Non-Af Amer) 15 (> 60) L 07/24/19 02:05 Glucose 152 mg/dL (70-105) H 07/24/19 02:05 POC Glucose 137 mg/dL (70-99) H 07/24/19 20:15 Calculated Osmolality 306 (280-300) H 07/23/19 03:18 Lactic Acid 4.8 mmol/L (0.5-2.2) H* 07/22/19 12:31 Uric Acid 14.1 mg/dL (2.3-7.6) H 07/22/19 12:31 Calcium 8.5 mg/dL (8.6-10.3) L 07/24/19 02:05 Venous Ioniz Calcium 1.08 mmol/L (1.15-1.35) L 07/23/19 08:47 Phosphorus 10.1 mg/dL (2.7-4.5) H 07/21/19 19:06 AST 50 Units/L (13-39) H 07/23/19 03:18 Lactate Dehydrogenase 135 Units/L (140-271) L 07/22/19 12:31 Troponin I 7.97 ng/mL (< 0.04) H* 07/23/19 11:15 Serum Total Protein 6.1 g/dL (6.4-8.9) L 07/24/19 02:05 Albumin 3.3 g/dL (3.5-5.7) L 07/24/19 02:05 Procalcitonin 0.26 ng/mL (0.00-0.15) H 07/24/19 02:05 Free T4 0.48 ng/dl (0.70-2.00) L 07/22/19 12:31 Thyroxine (T4) 4.86 mcg/dL (5.50-11.00) L 07/22/19 12:31 Free T3 1.48 pg/mL (2.50-3.90) L 07/22/19 12:31 Total T3 0.58 ng/mL (0.87-1.78) L 07/22/19 12:31 Urine Color Red (Yellow) A 07/24/19 11:00 Urine Clarity Hazy (Clear) A 07/24/19 11:00 Urine Protein 30 mg/dL (Neg-Trace) H 07/24/19 11:00 Urine Ketones Trace mg/dL (Negative) H 07/24/19 11:00 Urine Blood Large (Negative) H 07/24/19 11:00 Ur Leukocyte Esterase Large (Negative) H 07/24/19 11:00 Urine Microscopic RBC 50-100 per hpf (0-3) H 07/24/19 11:00 Urine Microscopic WBC 5-15 per hpf (0-3) H 07/24/19 11:00 Urine Bacteria Moderate per hpf (None-Few) H 07/24/19 11:00 Urine Yeast Few per hpf (None Seen) H 07/24/19 11:00 Ur Culture Indicated? YES (NO) A 07/24/19 11:00 Tot Complement (CH50) 171 Units (60-144) H 07/22/19 12:31 - Microbiology Findings Microbiology Findings: Microbiology, Last 48 Hours 07/24/19 11:00 Urine Culture - Preliminary Urine,Clean Catch Culture is incubating. 07/22/19 16:33 Urine Culture - Preliminary Urine,Clean Catch Gram Positive Cocci - Clinical Findings Intake & Output: Intake & Output 07/24/19 07/24/19 07/24/19 07:59 15:59 23:59 Intake Total 130 / 1451 651 / 1451 670 / 1451 Output Total 873 / 3564 1031 / 3564 1660 / 3564 Balance -743 / -2112 -380 / -2112 -990 / -2112 Weight 127.6 kg Consult Discharge Plan - Plan Referrals: Rajni Levy, MOE [Primary Care Provider] - - Attending Attestation - Attending Attestation I saw and evaluated this patient and my medical decision-making was reviewed with the Resident Physician. I agree with the documented findings, disposition and treatment plan as described except to the extent set forth below. We independently had [id number] contact with the patient Patient seen and examined at bedside Labs, radiology, chart personally reviewed. Management was reviewed during multidisciplinary critical care rounds. SLITTER HELPER: Patient has encephalopathy responding to verbal stimuli answering some ques tions with one-word answers patient is episodically confused since patient had the previous seizures disorder to continue the anti-epileptic medication will consult neurology ECG did not show any evidence of seizure activity most likely toxic/metabolic encephalopathy 07/23 patient is more alert conscious oriented follows commands able to participate in the complicated medical decision-making. 07/24 patient is conscious oriented 3 participate in medical decision-making. Pulm: Patient has acceptable oxygenation and ventilation patient is primarily metabolic acidosis with inadequate consult compensation will closely monitor patient is on vasopressor therapy patient has a high risk for respiratory failure and need for intubation and mechanical ventilation. Patient V/Q mismatch is complicated by left sided bandlike consolidation 07/23 patient is supple oxygenation and ventilation patient has this bandlike consolidation cover with broad-spectrum antibiotics. 07/24 patient has acceptable oxygenation and ventilation has some bandlike consolidation. Cardiovascular broad-spectrum antibiotics Cards: Patient is an most likely septic shock the troponin leak might be subendocardial ischemia or acute coronary syndrome cardiology was consulted patient to get limited echocardiogram to look for wall motion abnormalities troponin is slowly trending up to there is wall motion abnormalities. With IV heparin drip according to cardiology no cardiac catheterization for now. Patient is on norepinephrine drip most likely due to septic shock possible pneumonia source 07/23 patient shock has resolved hemodynamically stable patient is tolerating CVVH. Patient has troponins leak with peak at 10 discuss with cardiology pat ient will undergo cardiac catheterization. 07/24 patient had non-ST elevation CO echocardiogram good LV systolic function no regional wall motion abnormalities patient has acute on chronic kidney injury because of this interventional cardiology spoke with the family and patient because of the risk off the prolonged kidney injury patient wanted to wait . it was decided by cardiology and the patient, patient does not want to pursue cardiac catheterization. transmitter engineer in charge agrees with the plan of the patient. FEN-GI: We will keep her nothing by mouth IV PPI, CT abdomen pelvis shows some evidence of colitis with a lactic acidosis concern for ischemic colitis surgery was consulted to continue IV antibiotics for ischemic bowel at this point appreciate surgery input. will keep her NPO 07/24 Advance diet as tolerated Renal: Patient has acute on chronic kidney injury with severe non-gap acidosis and hyperkalemia due to hemodynamic instability but stability Patient is started on CVVH 07/23 to continue CVVH. 07/24 she is hemodynamically stable after the set clots nephrology might evaluate the patient for hemodialysis. ID: To cover with broad-spectrum antibiotics and follow cultures de-escalate according to cultures. Heme/Onc: Labs reviewed Endo: Glucose Monitored , to continue insulin therapy patient might have some type II lactic acidosis lactic acid is trending down cortisol random was around 11 related to adrenal insufficiency started on hydrocortisone 50 mg every 6. 07/24 . De-escalate the hydrocortisone. Integ/MSK: Skin Care per routine ICU Nursing Protocol to prevent ulcers. Lines: All lines examined without evidence of infection : Dispo: Once the CVVH is done patient can be transferred to medical telemetry. CODE:Full Code <Gera Potts S - Last Filed: 07/25/19 07:35> Date of Encounter: 07/25/19 Time of Encounter: 11:16 Assessment and Plan (1) NSTEMI (non-ST elevated myocardial infarction) Current Visit: Yes Status: Acute Patient is off Levaquin drip today Anxious about, but ready for her heart catheterization Troponin peaked at 10.77 Sunday night, ongoing trending troponins yesterday 9.00 and 7.97 Awaiting cardiac cath team to take her to the Asset Analyst * Continuing low-dose ACS heparin drip, adding PRN boluses * Heart cath sometime today * Per nephro, continue CRRT today until cath, then resume afterwards. * Continue telemetry monitoring Update: Dr Vale of cardiology came to see the patient with a goal of "blocking" her cat heterization from happening, to quote his own words, citing decreased kidney function, and a desire to protect her kidneys from a high contrast load. Dr Reyes of nephrology was present in the ICU and stated that if the patient required catheterization, she had no qualms with sending the patient for the procedure. Per Dr Vale, the patient does need a catheterization at some point, but he did not specify a time frame, or wether this would be happening during her inpatient stay or as an outpatient. (2) Acute encephalopathy Current Visit: Yes Status: Resolved Patient is much and O 3 today, Answers questions with intact judgement, appropriate insight, and linear thought * Neurology does not have any clinical suspicion suspicion of neurologic cause of her altered mental status * Continue to monitor her mental status while on heparin and CRRT * Stopped Zosyn, as there is no clinical indication of infectious process causing her altered mental status (3) Acute renal failure Current Visit: No Status: Acute Patient doing well on CRRT BUN down to 23 today, from 52 yesterday Creatinine down to 3.28 today, from 7.03 yesterday Patient continues to have output of straw-colored urine * Per nephro, continue CRRT * Avoid nephrotoxins where possible * Continue to monitor urine output, and repeat chem panel in the morning * Repeat urine cultures * Urine tox screen Subjective Principal diagnosis: AMS Interval history: Mrs. Pisano is a 53-year-old female admitted to her service with mental status and acute renal failure with hyperkalemia. She remains lucid, alert, oriented x3 today, and denies any new complaints. She remains anxious About all of the tests we are doing and specialists that are seeing her. She is, however, ready for her heart catheterization today, and on interview is motivated to quit smoking and make lifestyle changes. Her mom and oldest daughter are at the bedside. Patient denies any chest pain, shortness of breath, lightheadedness, dizziness, abdominal pain, numbness/tingling/weakness anywhere that is new Objective PUL Vital signs: Last Vital Signs Temp 97.4 F L 07/24/19 00:00 Pulse 67 07/24/19 11:00 Resp 19 07/24/19 11:00 BP 142/75 07/24/19 11:00 Pulse Ox 93 07/24/19 11:00 General appearance: no acute distress Eyes: nonicteric ENT: oropharynx moist Effort: normal Cardiovascular: regular rate and rhythm Gastrointestinal: soft, non-tender, non-distended, other (Obese) Integumentary: normal Extremities: no cyanosis, edema (Trace edema bilateral lower extremities) non-focal exam, pupils equal and round, CN II-XII normal mood appropriate, affect normal Results - Laboratory Findings CBC and BMP: 07/25/19 03:30 07/25/19 03:30 ABG ABG pH 7.27 pH Units (7.32-7.45) L 07/22/19 08:23 ABG pCO2 23 mmHg (35-45) L 07/22/19 08:23 ABG pO2 86 mmHg (85-104) 07/22/19 08:23 ABG O2 Saturation 95 % (95-98) 07/22/19 08:23 PT/INR, D-dimer PT 11.1 Seconds (9.4-12.1) 07/24/19 02:00 Abnormal lab findings: Abnormal lab results WBC 15.3 K/mcL (4.3-11.1) H 07/22/19 06:21 RBC 3.22 M/mcL (3.82-4.97) L 07/24/19 02:05 Hgb 9.5 g/dL (11.5-15.4) L 07/24/19 02:05 Hct 28.6 % (35.3-44.9) L 07/24/19 02:05 MCHC 30.3 g/dL (31.6-35.5) L 07/22/19 06:21 RDW 14.8 % (11.5-14.5) H 07/22/19 06:21 Neutrophils # 12.8 K/mcL (1.6-8.9) H 07/22/19 06:21 Haptoglobin 224 mg/dL (30-200) H 07/22/19 12:31 Heparin Anti-Xa, Unfract 0.22 IU/mL (0.30-0.70) L 07/24/19 09:00 ABG pH 7.27 pH Units (7.32-7.45) L 07/22/19 08:23 ABG pCO2 23 mmHg (35-45) L 07/22/19 08:23 ABG HCO3 10 mEq/L (21-27) L 07/22/19 08:23 ABG Total CO2 11 mEq/L (20-26) L 07/22/19 08:23 ABG Base Excess -15 mEq/L (-2 to 3) L 07/22/19 08:23 VBG pO2 78 mmHg (25-50) H 07/24/19 02:31 VBG HCO3 29 mEq/L (21-27) H 07/24/19 02:31 Potassium 5.2 mEq/L (3.5-5.1) H 07/22/19 04:06 Carbon Dioxide 20 mEq/L (23-29) L 07/22/19 16:22 BUN 23 mg/dL (6-20) H 07/24/19 02:05 Creatinine 3.28 mg/dL (0.60-1.20) H 07/24/19 02:05 Est GFR ( Amer) 18 (> 60) L 07/24/19 02:05 Est GFR (Non-Af Amer) 15 (> 60) L 07/24/19 02:05 Glucose 152 mg/dL (70-105) H 07/24/19 02:05 POC Glucose 131 mg/dL (70-99) H 07/24/19 08:38 Calculated Osmolality 306 (280-300) H 07/23/19 03:18 Lactic Acid 4.8 mmol/L (0.5-2.2) H* 07/22/19 12:31 Uric Acid 14.1 mg/dL (2.3-7.6) H 07/22/19 12:31 Calcium 8.5 mg/dL (8.6-10.3) L 07/24/19 02:05 Venous Ioniz Calcium 1.08 mmol/L (1.15-1.35) L 07/23/19 08:47 Phosphorus 10.1 mg/dL (2.7-4.5) H 07/21/19 19:06 AST 50 Units/L (13-39) H 07/23/19 03:18 Lactate Dehydrogenase 135 Units/L (140-271) L 07/22/19 12:31 Troponin I 7.97 ng/mL (< 0.04) H* 07/23/19 11:15 Serum Total Protein 6.1 g/dL (6.4-8.9) L 07/24/19 02:05 Albumin 3.3 g/dL (3.5-5.7) L 07/24/19 02:05 Procalcitonin 0.26 ng/mL (0.00-0.15) H 07/24/19 02:05 Free T4 0.48 ng/dl (0.70-2.00) L 07/22/19 12:31 Thyroxine (T4) 4.86 mcg/dL (5.50-11.00) L 07/22/19 12:31 Free T3 1.48 pg/mL (2.50-3.90) L 07/22/19 12:31 Total T3 0.58 ng/mL (0.87-1.78) L 07/22/19 12:31 Urine Clarity Hazy (Clear) A 07/22/19 16:33 Urine Protein 100 mg/dL (Neg-Trace) H 07/22/19 16:33 Urine Blood Large (Negative) H 07/22/19 16:33 Ur Leukocyte Esterase Moderate (Negative) H 07/22/19 16:33 Urine Microscopic RBC 50-100 per hpf (0-3) H 07/22/19 16:33 Urine Microscopic WBC 30-50 per hpf (0-3) H 07/22/19 16:33 Urine Yeast Many per hpf (None Seen) H 07/22/19 16:33 Ur Culture Indicated? YES (NO) A 07/22/19 16:33 Tot Complement (CH50) 171 Units (60-144) H 07/22/19 12:31 - Microbiology Findings Microbiology Findings: Microbiology, Last 48 Hours 07/22/19 16:33 Urine Culture - Preliminary Urine,Clean Catch Gram Positive Cocci - Clinical Findings Intake & Output: Intake & Output 07/23/19 07/24/19 07/24/19 23:59 07:59 15:59 Intake Total 5470 / 8516 130 / 220 90 / 220 Output Total 1357 / 4894 873 / 1321 448 / 1321 Balance 4113 / 3622 -743 / -1101 -358 / -1101 Weight 127.6 kg
[2019-07-24] MEDS: *HR* Heparin 5,000 UNIT/ML VIAL IVP PRN (11:30)
[2019-07-24 11:40] LABS: Bilirubin,Urine Negative (Negative); Blood,Urine Large (Negative); Color,Urine Red (Yellow); Glucose,Urine (UA) Normal (Normal); Ketones,Urine Trace mg/dL (Negative); Leukocyte Esterase,Urine Large (Negative); Nitrite,Urine Negative (Negative); Protein,Urine 30 mg/dL (Neg-Trace); Specific Gravity,Urine 1.012 (1.010-1.025); Urobilinogen,Urine Normal (Normal)
[2019-07-24 11:47] LABS: Clarity,Urine Hazy (Clear)
[2019-07-24 12:00] LABS: Bacteria,Urine Moderate per hpf (None-Few); Yeast,Urine Few per hpf (None Seen)
[2019-07-24 12:01] LABS: RBC,Urine 50-100 per hpf (0-3)
--- NOTE | 2019-07-24 14:17 | Nephrology Progress Note ---
Date of Encounter: 07/24/19 Time of Encounter: 09:05 - Assessment and Plan (1) Acute kidney injury superimposed on chronic kidney disease Current Visit: No Status: Acute Baseline CKD [address] Comer. Likely multifactorial relate to home medications (Metformin) decreased PO intake related to diarrhea at home. D/C metformin, likely causative factor of lactic acidosis. CRRT in progress, patient tolerating well. Pt was in hospital earlier this month. GFR was 28 on discharge, she was to f/u with Dr. Comer in 2-3 months. GFR is 15 today, expected with CRRT. Retroperitoneal US ordered and negative. Uric acid is 14.1. Urine NA 69.1. Strict I/O Daily weights. Avoid nephrotoxins and renally dose all medications. No heart cath planned for today per Dr. Vale. Continue CRRT until the set clots. Will assess the need for iHd in the am. (2) Encephalopathy acute Current Visit: No Status: Acute Appears resolving. (3) Hyperkalemia Current Visit: No Status: Acute K is 3.9, stable. (4) Elevated lactic acid level Current Visit: Yes Status: Acute Lactic acid is 2.2, stable. Subjective Principal diagnosis: AMS Interval history: Pt seen and examined in ICU, tolerating lesa well. Is off all pressor support. Denies nausea, vomiting, diarrhea. Denies shortness of breath. Denies chest pain or shortness of breath. Objective - Vital Signs Vital signs: Vital Signs Temp Pulse Resp BP Pulse Ox 07/24/19 13:00 71 20 141/88 95 07/24/19 12:00 97.3 F L 71 20 158/84 95 07/24/19 11:00 67 19 142/75 93 07/24/19 10:00 59 19 144/81 95 07/24/19 09:00 71 19 151/80 95 07/24/19 08:00 68 20 154/82 96 07/24/19 07:00 62 18 131/76 97 07/24/19 06:00 64 18 130/82 97 07/24/19 05:00 70 20 156/82 97 07/24/19 04:00 70 18 148/76 96 07/24/19 03:00 66 18 140/78 96 07/24/19 02:00 66 16 132/80 95 07/24/19 01:00 66 18 128/76 96 09/26/19 00:00 97.4 F L 80 20 122/78 93 07/23/19 23:00 70 18 108/72 96 07/23/19 22:00 66 18 140/83 98 07/23/19 21:00 78 20 124/104 96 07/23/19 20:13 96.7 F L 07/23/19 20:00 70 20 129/70 94 07/23/19 19:00 65 20 130/50 96 07/23/19 18:00 70 19 119/86 98 07/23/19 17:00 61 19 131/74 97 07/23/19 16:00 98 F 68 19 149/88 98 07/23/19 15:00 63 19 132/54 97 Intake and Output 07/23/19 07/24/19 07/24/19 23:59 07:59 15:59 Intake Total 5470 / 8516 130 / 331 201 / 331 Output Total 1357 / 4894 873 / 1526 653 / 1526 Balance 4113 / 3622 -743 / -1195 -452 / -1195 Intake: IV Fluids 5150 / 8076 130 / 181 51 / 181 PrismaSATE BGK 4/2.5 5,000 ML @ 5000 / 5000 0 / 0 1500 mls/hr CRRT CONT [facility] Rx#: [id number] Heparin 25,000 UNIT/250 ML D5W 50 / 50 30 / 81 51 / 81 25,000 unit In 250 ml @ 8 UNIT/ KG/HR 9.904 mls/hr IVC .Q24H [facility] Rx#:[id number] Zosyn 3.375 GM In 0.9 % Sodium 100 / 300 100 / 100 Chloride (Mini-Bag +) 100 ML @ 25 mls/hr IVPB Q8H [facility] Rx#: [id number] Oral 320 / 440 150 / 150 Output: Catheter 620 / 2410 875 / 1520 645 / 1520 Fluid Removed by Prismaflex 737 / 2484 -2 / 6 8 / 6 Other: Meal Dinner Percent of Meal Consumed 65% Stool Size Small Small Moderate Stool Consistency loose liquid loose Stool Characteristics Normal for Patient Normal for Patient Normal for Patient Stool Color Brown Brown Brown # Bowel Movements 1 1 Weight 127.6 kg Blood Glucose* 148 178 128 Patient Weight 07/24/19 23:59 Weight 127.6 kg - General Appearance General appearance: Present: well-developed, well-nourished, obese EENT: Present: ATNC, hearing intact, vision intact Neck: Present: supple Respiratory: Present: clear Cardiology: Present: edema (trace bilat lower extremity edema noted), normal S1, normal S2 Dialysis Vascular Access: Venous Catheter (drsg c/d/i) Gastrointestinal: Present: normoactive bowel sounds, no tenderness, no guarding Integumentary: Present: no rash, warm and dry Neurologic: Present: alert and oriented x3 Musculoskeletal: Present: no deformities, no erythema Psychiatric: Present: mood/affect appropriate, cooperative - Lab 07/24/19 02:05 07/24/19 02:05 Most recent lab results 07/24/19 02:05 Calcium 8.5 L Consult Discharge Plan - Plan Referrals: Rajni Levy, BULK STATION AGENT [Primary Care Provider] -
--- NOTE | 2019-07-24 14:30 | Internal Med Progress Note ---
Hospitalist Progress Note - Encounter Date of Encounter: 07/24/19 Time of Encounter: 14:28 - Subjective Interval History: Ms. Pisano is a 53 year old female who was recently discharged from our facility on 07/15/2019. Patient has a history of diabetes mellitus type 2, hypertension, hyperlipidemia, seizures, chronic kidney disease stage III, chronic pain, obesity. During her last admission she was admitted for altered mental status, with a blank stare. He had an extensive evaluation occluding urine drug screen at that time which was negative. She was noted to have a CK level and a benign 100s and acute kidney injury with a creatinine of 3.5 range. She was treated for urinary tract infection and on arrival to our facility at that time had ge neralized seizures. In by neurology and nephrology at this time. She had an EEG which showed generalized seizure disorder. Patient had been on Topamax 300 mg twice a day, and was having altered mental status from this and thus neurology decrease her Topamax to 100 mg twice a day. Patient was aggressively hydrated, her renal function improved back to near baseline at 1.8 creatinine, and her CK normalized. Pt was sent home to continue a course of Cefdinir for urinary tract infection. Patient presented to [facility] emergency room today with altered mental status. Per the ER physician the only verbal response patient would give was "my hips, my face". She could not explain what she meant by this or provide any further history. Patient otherwise had a fairly blank stare no witnessed seizure activity. Patient had extensive workup while at [facility] emergency room including a CT of her hips CT of her head which showed no acute process. Chest x-ray was negative. Her vital signs on presentation showed her to be initially hypotensive with a blood pressure in the 70 systolic which improved after 1 L of IV fluids. She was satting well on room air. Laboratory studies showed a white count of 16.9, hemoglobin 12.4 platelets 341,000. 66 segs, 27 lymphs, 5 monos. Sodium 134 potassium 5.8 chloride 101 CO2 10. 79 creatinine 11.5 glucose 141 liver enzymes normal ammonia 32 CK 126 lactic ac id 3.2. Patient was treated with D50, insulin and bicarbonate 1 amp for her hyperkalemia. A repeat BMP showed her electrolytes not significant weight change except for potassium slightly increased now 6.2. Patient was given 2 L of IV fluids and sent here for further treatment. 9/25: Patient has shown significant improvement today from a mentation standpoint. She still has a mild delirium tremens since she is awake alert and oriented 3. Patient started on CRRT yesterday, this morning her numbers are improving and she has had good urine output, previously this she was anuric. Unfortunately her troponin continued to rise to a peak of 10.77, now is trending down. Cardiology is aware and is planning for left heart catheterization. She is now started on a heparin drip for non-STEMI. 07/24: Patient continues to improve. Altered mental status is resolved. She continues on CRRT. Patient denies any shortness of breath. No abdominal pain. No chest pain. No nausea, vomiting, diarrhea. Other not mentioned above a 10 point review of systems is negative with the exception of her "chronic pain" which he describes as primarily back pain for which he has been seen pain specialists. - Exam Vitals: Temp Pulse Resp BP Pulse Ox 97.3 F L 70 19 130/58 95 07/24/19 12:00 07/24/19 14:07/24/19 14:07/24/19 14:07/24/19 14:00 Exam: Obese, no acute distress, delerium - Head Head exam: Present: atraumatic, normocephalic - Eye Eye exam: Present: PERRL, conjuntiva pink, sclera anicteric Pupils: Present: PERRL - Neck Neck exam general surgery: Present: supple, trachea midline. Absent: lymphadenopathy. He will dialysis catheter right neck - Respiratory Respiratory exam: Present: CTAB (Dimin bs bases). Absent: accessory muscle use, rales, rhonchi, wheezes - Cardiovascular Cardiovascular exam: Present: RRR, +S1, +S2. Absent: diastolic murmur, gallop, rubs, systolic murmur - GI/Abdominal GI/Abdominal exam: Present: normal bowel sounds, soft, no peritoneal signs. Absent: distended, tenderness - Extremities Exam Extremities exam: Present: warm, radial pulses palpable and symmetrical. Absent: calf tenderness, cyanotic, pedal edema - Neurological Exam Neurological exam: Present: CN II-XII intact, oriented X3 (oriented x 2, vague answers to questions, answers with repeated questioning), no focal deficits. Absent: pronater drift, facial droop, speech deficit - Skin Skin exam: Present: dry, intact (Cap refill <2.5 sec) - Summary of Assessment and Plan Summary of Assessment and Plan: Acute kidney injury -Patient had a catheter placed, will monitor urine output closely. I do not see any documented, will verify -Stat renal sonogram rule out obstruction -High concern for HTN -Continue with IV fluids, likely will add sodium bicarbonate -I discussed the case with Dr. Comer in nephrology who will see this patient in AM 07/23: Receiving CRRT. I discussed the case with Dr. Comer today. Patient will continue his CRRT Anion gap metabolic acidosis -Multifactorial, I do see metformin on her medication list will need to verify that she is still not on this -Could be related to seizures -Urine drug screen ordered, Tylenol level ordered. 07/23: Improved -bicarb drip stopped NonSTEMI -cardiology planning [facility] -heparin drip started, asa, lipitor, no BB due to hypotension 07/24: Cardiology is now holding off on catheterization. Will discuss with them today. Hyperkalemia -Patient received acute treatment for this -potassium remains elevated, ice discuss this with the emergency department and would recommend an additional acute treatment prior to transfer -will place patient on additional bicarbonate all fully correct her metabolic acidosis which is likely at least significantly contributing to her hyperkalemia -She did not show any EKG changes 07/24: Resolved Acute gastroenteritis -Maybe a viral presentation, rule out infection -She does have a leukocytosis, I will check a flat plate abdomen -Patient does not have a fever, but she does have a leukocytosis, elevated lactic acid -Urine looks clear -Cannot rule out a GI infection, bacterial. Therefore I will start patient empirically on renally dosed Zosyn. -Cannot perform a CT abdomen with contrast due to acute kidney injury -check C Diff Toxin assay, add enteric Vnco until C Diff ruled out, leif while ongoing abx 07/23: Day #3 IV Zosyn for colitis. May stop soon. 07/24: Symptoms have resolved, I will stop Zosyn is no obvious bacterial infection. Continue to monitor. Altered mental status -Possibly related to have recurrent seizures, polypharmacy -Resolved Seizures -Continue on her Topamax at reduced dose -EEG done this admission showed no seizure activity ?Metformin Toxicity -Patient states she has been taking metformin for back pain. She has a very difficult historian. I do see that metformin was listed as one of her discharge medications, she does have chronic kidney disease stage III -DC metformin indefinitely, monitor blood sugar levels, monitor acid base status Chronic pain -We evaluate her pain medication list as ischemic contribute to her altered mental status Diabetes mellitus type 2 -Patient achieving reasonable glycemic control with sliding scale insulin, she will likely need to be on insulin indefinitely given her renal dysfunction DVT prophylaxis -heparin Sub Q Morbid Obesity Full code - Time Spent with Patient Total time spent is greater than 50% in coordination of care (as documented) at patient's floor/unit and/or counseling patient: Greater than 35 minutes Internal Medicine: Result - Labs CBC & Chem 7: 07/24/19 02:05 07/24/19 02:05 Labs: Short CBC 07/24/19 Range/Units 02:05 WBC 7.6 (4.3-11.1) K/mcL Hgb 9.5 L (11.5-15.4) g/dL Hct 28.6 L (35.3-44.9) % Plt Count 183 (140-400) K/mcL Neutrophils # 5.4 (1.6-8.9) K/mcL BMP 07/24/19 02:05 Sodium 138 Potassium 3.9 Chloride 103 Carbon Dioxide 28 BUN 23 H Creatinine 3.28 H Glucose 152 H Calcium 8.5 L Liver Function 07/24/19 Range/Units 02:05 Total Bilirubin 0.4 (0.3-1.0) mg/dL AST 28 (13-39) Units/L ALT 10 (7-52) Units/L Alkaline Phosphatase 64 (34-104) Units/L Albumin 3.3 L (3.5-5.7) g/dL Urine 07/24/19 Range/Units 11:00 Urine Color Red A (Yellow) Urine Clarity Hazy A (Clear) Urine pH 7.0 (5.0-8.0) pH Units Ur Specific [place] 1.012 (1.010-1.025) Urine Protein 30 H (Neg-Trace) mg/dL Urine Glucose (UA) Normal (Normal) mg/dL - ABG Interpretation ABG results: ABG ABG pH 7.27 pH Units (7.32-7.45) L 07/22/19 08:23 ABG pCO2 23 mmHg (35-45) L 07/22/19 08:23 ABG pO2 86 mmHg (85-104) 07/22/19 08:23 ABG O2 Saturation 95 % (95-98) 07/22/19 08:23 PT/INR, D-dimer PT 11.1 Seconds (9.4-12.1) 07/24/19 02:00 Consult Discharge Plan - Plan Referrals: Rajni Levy, [employer] [Primary Care Provider] -
--- NOTE | 2019-07-24 16:14 | Cardiology Progress Note ---
Date of Encounter: 07/24/19 Time of Encounter: 10:30 Assessment and Plan (1) NSTEMI (non-ST elevated myocardial infarction) Current Visit: Yes Status: Acute Troponin elevation peaking at 10.77 and now trending down. NSTEMI Type I vs TypeII in setting of renal failure and severe hypotension. EKG with nonspecific changes. TTE completed at that time: 07/14/19: LVEF 60%, mild cLVH, normal RV structure and function, moderate (MG=24 mmHg), no PH. TTE 07/22/19 showed EF 70%. Normal LV chamber size and function. NSWMA. Pt with multiple cardiac risk factors including DM, HTN, HLD, and renal disease. Atypical chest pain. Currently on CVVH. Ideally LHC would be recommended. With ARF and patient being on CVVH we will defer LHC at this time to allow kidney to have a chance to recover. Patient and family agree with plan. Can consider once kidney function has returned to baseline. On ASA, statin, heparin gtt. Not on BB d/t hypotension. Recommend starting when able. Reconsult prior to discharge to consider LHC. (2) Acute kidney injury superimposed on chronic kidney disease Current Visit: No Status: Acute Baseline CKD stage III presents with ARF. On CVVH. Nephrology following. Discussion w patient/family: The assessment and plan as outlined above was discussed with the patient and/or family members who expressed understanding and agreement. All questions were answered. Thank you for involving us in the care of your patient. Please call with any questions. Subjective Principal diagnosis: elevated troponin Interval history: Ms. Pisano is laying in bed with family at her side. States that she feels anxious. Occasionally needs to sit up because she feels heaviness in her chest when she lays flat. Denies chest pain currently. Objective Vital Signs, Last 4 Hours Pulse Resp BP Pulse Ox 07/24/19 15:00 68 19 137/79 96 07/24/19 14:00 70 19 130/58 95 07/24/19 13:00 71 20 141/88 95 General: Conversant, No Apparent Distress HEENT: Atraumatic, Normocephaly, Mucus Membranes Moist Neck: No JVD, Normal carotid pulses, Other (Right IJ) Cardiac: Reg Rate and Rhythm, Normal S1 and S2, No Murmur Lungs: Normal Breath Sounds, No Wheeze, Rales, Rhonchi Neuro: Alert and responsive, No focal deficits noted Abdomen: Soft, Non-Tender Skin: No rashes noted on visualized skin Musculoskeletal: No Chest Wall Tenderness Extremities: No Clubbing, No Cyanosis, No Edema, Normal Pulses Results 07/24/19 02:05 07/24/19 02:05 Lab Results 07/24/19 07/24/19 07/24/19 02:00 02:05 02:05 WBC 7.6 Hgb 9.5 L Hct 28.6 L Plt Count 183 INR 1.0 Sodium 138 Potassium 3.9 Chloride 103 Carbon Dioxide 28 BUN 23 H Creatinine 3.28 H Glucose 152 H Calcium 8.5 L Total Bilirubin 0.4 AST 28 ALT 10 Alkaline Phosphatase 64 - Imaging and Cardiology Echo: report reviewed - EKG Interpretation EKG results cardiology: personally reviewed Consult Discharge Plan - Plan Referrals: Rajni Levy, MOE [Primary Care Provider] - Cardiac Rehab - Cardiac Rehab Cardiac Rehab: Phase I consult completed. Patient was educated on why Cardiac Rehabilitation is beneficial to his/her health. Participating in a cardiac rehabilitation can improve the following: strengthen your heart, improve ejection fraction, weight reduction, decrease cholesterol levels, lower blood pressure, lower blood sugar, improve stamina, and enhance self-image. If he/she has any questions, they were instructed to call [facility] at [phone].
[2019-07-24] MEDS: Heparin 25,000 UNIT/250 ML D5W 25,000 UNIT/250 ML IV.SOLN IVC SCH (16:34)
[2019-07-24] MEDS ORDERED: Hydrocortisone Sodium Succ 100 MG/2 ML VIAL IVP SCH (18:00)
[2019-07-24] MEDS: Norepinephrine 8 MG in 0.9 % Sodium Chloride 250 ML IVC SCH (19:44)
[2019-07-25] MEDS: Insulin LISPRO 300 UNITS/3 ML VIAL SQ SCH ×6 (00:12→19:26)
[2019-07-25] MEDS ORDERED: *HR* Heparin 5,000 UNIT/ML VIAL ONE (00:44)
[2019-07-25] MEDS: *HR* Heparin 5,000 UNIT/ML VIAL CRRT PRN (01:18)
[2019-07-25 03:52] LABS: Basophils % 0.5 %; Eosinophils # 0.2 K/mcL (0.0-0.6); Eosinophils % 1.8 %; Hematocrit 28.5 % (35.3-44.9); Hemoglobin 9.5 g/dL (11.5-15.4); Immature Granulocytes % 0.6 % (0-4); Lymphocytes # 3.3 K/mcL (0.6-4.6); Mean Corpuscular HGB Conc 33.3 g/dL (31.6-35.5); Mean Corpuscular Hemoglobin 29.3 pg (28.0-33.3); Mean Platelet Volume 9.5 fL (9.4-12.4); Monocytes # 0.5 K/mcL (0.0-1.3); Monocytes % 6.4 %; Neutrophils # 4.3 K/mcL (1.6-8.9); Platelet Count 223 K/mcL (140-400); Red Blood Count 3.24 M/mcL (3.82-4.97); Red Cell Distribution Width 13.7 % (11.5-14.5); Segmented Neutrophils % 51.7 %; White Blood Count 8.4 K/mcL (4.3-11.1)
[2019-07-25 04:02] LABS: Heparin anti-factor XA UFH 0.41 IU/mL (0.30-0.70)
[2019-07-25 04:03] LABS: Prothrombin Time 11.3 Seconds (9.4-12.1)
[2019-07-25 04:12] LABS: Albumin 3.4 g/dL (3.5-5.7); Albumin/Globulin Ratio 1.3 (1.1-2.2); Bilirubin,Total 0.4 mg/dL (0.3-1.0); Calcium 8.4 mg/dL (8.6-10.3); Globulin 2.7 g/dL (2.4-3.5); Potassium 3.5 mEq/L (3.5-5.1); Total Protein 6.1 g/dL (6.4-8.9)
[2019-07-25] MEDS: Aspirin Enteric Coated 81 MG Tablet PO SCH (09:06)
[2019-07-25] MEDS: Topiramate 100 MG TABLET PO SCH ×2 (09:06→20:08)
[2019-07-25] MEDS: *HR* Acetylcysteine 20% 600 MG/3 ML ORAL SYRINGE PO SCH ×2 (09:08→20:08)
--- NOTE | 2019-07-25 09:50 | Pulmonology Progress Note ---
<Gera Potts S - Last Filed: 07/25/19 15:38> Date of Encounter: 07/25/19 Time of Encounter: 09:50 Assessment and Plan (1) NSTEMI (non-ST elevated myocardial infarction) Current Visit: Yes Status: Acute Patient expresses confusion and frustration this morning about a heart catheterization being canceled last night She reports that she does not have any ongoing shortness of breath, still feels fatigued, but denies any other symptoms suggestive of acute infarction Heparin drip is still going at this point Of note, the patient revealed today that she had a heart cath [place] [address] Barragan here * Continue heparin drip until it has been running for 48 hours * Continue telemetry monitoring while in the hospital * Outpatient cardiology follow-up will be required on discharge (2) Acute renal failure Current Visit: No Status: Acute Patient is doing well off CRRT BUN of 15 today, with a creatinine of 2.19 Expresses concerns over not knowing what a renal diet is * Dietitian consult for education * Per Dr. Oakley get her of nephrology, we will leave the hemodialysis catheter in place, and continue to monitor her renal function. * Remove Joshi, maintain monitoring of I's and O's * Patient's clinical status is improved to the point she is safe for down grade to the stepdown unit Qualifiers: Acute renal failure type: unspecified Qualified Code(s): N17.9 - Acute kidney failure, unspecified (3) Ankle pain Current Visit: Yes Status: Acute Exam largely benign, but patient does have history of recent falls No pain extending up the leg or in the midfoot No tenderness at medial or lateral malleoli No joint instability noted * X-ray of the ankle to confirm no acute injury Qualifiers: Chronicity: unspecified Laterality: right Qualified Code(s): M25.571 - Pain in right ankle and joints of right foot (4) Skin eruption Current Visit: Yes Status: Acute Mottled irregular skin eruption with underlying induration No area of fluctuance noted, Tender to touch * Venous ultrasound to rule out out superficial thrombophlebitis abscess Subjective Principal diagnosis: elevated troponin Interval history: Mrs. Pisano is a 53-year-old female admitted to her service with mental status and acute renal failure with hyperkalemia. She remains lucid, alert, oriented x3 today, and reports achy pain across her chest since yesterday afternoon. The pain is constant, is not associated shortness of breath, diaphoresis, does not radiate into her arm neck or jaw, does not seem to be exertional. Vital signs are normal, oxygen saturation remaining in the low 90s and stable. She is in much better spirits today, she is sitting up at the side of the bed eating her breakfast. She reports some pain in her right ankle and right shoulder. She noticed an area of redness on her anterior right bicep yesterday evening, and noticed that her ankle is swollen today Patient denies any shortness of breath, lightheadedness, dizziness, abdominal pain, numbness/tingling/weakness anywhere that is new Objective PUL Vital signs: Last Vital Signs Temp 98.6 F 07/25/19 07:23 Pulse 79 07/25/19 09:00 Resp 20 07/25/19 09:00 BP 125/67 07/25/19 09:00 Pulse Ox 93 07/25/19 09:00 General appearance: no acute distress Eyes: nonicteric ENT: oropharynx moist Effort: normal Auscultation: bilateral: clear Cardiovascular: regular rate and rhythm Gastrointestinal: normoactive bowel sounds, soft, non-tender, non-distended Integumentary: erythema (Area of erythema and induration on the anterior bicep of the right arm near the axilla, slightly warm and tender to the touch with mottled appearance) Extremities: no cyanosis Gait: other (Right ankle is slightly swollen compared to the left) normal mental status, non-focal exam, CN II-XII normal mood appropriate, affect normal Results - Laboratory Findings CBC and BMP: 07/25/19 03:30 07/25/19 03:30 ABG ABG pH 7.27 pH Units (7.32-7.45) L 07/22/19 08:23 ABG pCO2 23 mmHg (35-45) L 07/22/19 08:23 ABG pO2 86 mmHg (85-104) 07/22/19 08:23 ABG O2 Saturation 95 % (95-98) 07/22/19 08:23 PT/INR, D-dimer PT 11.3 Seconds (9.4-12.1) 07/25/19 03:30 Abnormal lab findings: Abnormal lab results WBC 15.3 K/mcL (4.3-11.1) H 07/22/19 06:21 RBC 3.24 M/mcL (3.82-4.97) L 07/25/19 03:30 Hgb 9.5 g/dL (11.5-15.4) L 07/25/19 03:30 Hct 28.5 % (35.3-44.9) L 07/25/19 03:30 MCHC 30.3 g/dL (31.6-35.5) L 07/22/19 06:21 RDW 14.8 % (11.5-14.5) H 07/22/19 06:21 Neutrophils # 12.8 K/mcL (1.6-8.9) H 07/22/19 06:21 Haptoglobin 224 mg/dL (30-200) H 07/22/19 12:31 Heparin Anti-Xa, Unfract 0.26 IU/mL (0.30-0.70) L 07/24/19 18:40 ABG pH 7.27 pH Units (7.32-7.45) L 07/22/19 08:23 ABG pCO2 23 mmHg (35-45) L 07/22/19 08:23 ABG HCO3 10 mEq/L (21-27) L 07/22/19 08:23 ABG Total CO2 11 mEq/L (20-26) L 07/22/19 08:23 ABG Base Excess -15 mEq/L (-2 to 3) L 07/22/19 08:23 VBG pO2 78 mmHg (25-50) H 07/24/19 02:31 VBG HCO3 29 mEq/L (21-27) H 07/24/19 02:31 Potassium 5.2 mEq/L (3.5-5.1) H 07/22/19 04:06 Carbon Dioxide 20 mEq/L (23-29) L 07/22/19 16:22 BUN 23 mg/dL (6-20) H 07/24/19 02:05 Creatinine 2.19 mg/dL (0.60-1.20) H 07/25/19 03:30 Est GFR ( Amer) 28 (> 60) L 07/25/19 03:30 Est GFR (Non-Af Amer) 23 (> 60) L 07/25/19 03:30 Glucose 133 mg/dL (70-105) H 07/25/19 03:30 POC Glucose 141 mg/dL (70-99) H 07/25/19 07:14 Calculated Osmolality 306 (280-300) H 07/23/19 03:18 Lactic Acid 4.8 mmol/L (0.5-2.2) H* 07/22/19 12:31 Uric Acid 14.1 mg/dL (2.3-7.6) H 07/22/19 12:31 Calcium 8.4 mg/dL (8.6-10.3) L 07/25/19 03:30 Venous Ioniz Calcium 1.08 mmol/L (1.15-1.35) L 07/23/19 08:47 Phosphorus 10.1 mg/dL (2.7-4.5) H 07/21/19 19:06 AST 50 Units/L (13-39) H 07/23/19 03:18 Lactate Dehydrogenase 135 Units/L (140-271) L 07/22/19 12:31 Troponin I 7.97 ng/mL (< 0.04) H* 07/23/19 11:15 Serum Total Protein 6.1 g/dL (6.4-8.9) L 07/25/19 03:30 Albumin 3.4 g/dL (3.5-5.7) L 07/25/19 03:30 Procalcitonin 0.26 ng/mL (0.00-0.15) H 07/24/19 02:05 Free T4 0.48 ng/dl (0.70-2.00) L 07/22/19 12:31 Thyroxine (T4) 4.86 mcg/dL (5.50-11.00) L 07/22/19 12:31 Free T3 1.48 pg/mL (2.50-3.90) L 07/22/19 12:31 Total T3 0.58 ng/mL (0.87-1.78) L 07/22/19 12:31 Urine Color Red (Yellow) A 07/24/19 11:00 Urine Clarity Hazy (Clear) A 07/24/19 11:00 Urine Protein 30 mg/dL (Neg-Trace) H 07/24/19 11:00 Urine Ketones Trace mg/dL (Negative) H 07/24/19 11:00 Urine Blood Large (Negative) H 07/24/19 11:00 Ur Leukocyte Esterase Large (Negative) H 07/24/19 11:00 Urine Microscopic RBC 50-100 per hpf (0-3) H 07/24/19 11:00 Urine Microscopic WBC 5-15 per hpf (0-3) H 07/24/19 11:00 Urine Bacteria Moderate per hpf (None-Few) H 07/24/19 11:00 Urine Yeast Few per hpf (None Seen) H 07/24/19 11:00 Ur Culture Indicated? YES (NO) A 07/24/19 11:00 Tot Complement (CH50) 171 Units (60-144) H 07/22/19 12:31 - Microbiology Findings Microbiology Findings: Microbiology, Last 48 Hours 07/24/19 11:00 Urine Culture - Preliminary Urine,Clean Catch Culture is incubating. 07/22/19 16:33 Urine Culture - Preliminary Urine,Clean Catch Gram Positive Cocci - Clinical Findings Intake & Output: Intake & Output 07/24/19 07/25/19 07/25/19 23:59 07:59 15:59 Intake Total 670 / 1511 110 / 470 360 / 470 Output Total 1830 / 3794 1340 / 1340 Balance -1160 / -2283 -1230 / -870 360 / -870 Consult Discharge Plan - Plan Referrals: Rajni Levy, [employer] [Primary Care Provider] - <Alex Rodriguez - Last Filed: 07/25/19 20:05> Date of Encounter: 07/25/19 Objective PUL Vital signs: Last Vital Signs Temp 98.1 F 07/25/19 18:00 Pulse 76 07/25/19 19:43 Resp 18 07/25/19 19:43 BP 137/74 07/25/19 18:00 Pulse Ox 97 07/25/19 19:43 Results - Laboratory Findings CBC and BMP: 07/25/19 03:30 07/25/19 03:30 ABG ABG pH 7.27 pH Units (7.32-7.45) L 07/22/19 08:23 ABG pCO2 23 mmHg (35-45) L 07/22/19 08:23 ABG pO2 86 mmHg (85-104) 07/22/19 08:23 ABG O2 Saturation 95 % (95-98) 07/22/19 08:23 PT/INR, D-dimer PT 11.3 Seconds (9.4-12.1) 07/25/19 03:30 Abnormal lab findings: Abnormal lab results WBC 15.3 K/mcL (4.3-11.1) H 07/22/19 06:21 RBC 3.24 M/mcL (3.82-4.97) L 07/25/19 03:30 Hgb 9.5 g/dL (11.5-15.4) L 07/25/19 03:30 Hct 28.5 % (35.3-44.9) L 07/25/19 03:30 MCHC 30.3 g/dL (31.6-35.5) L 07/22/19 06:21 RDW 14.8 % (11.5-14.5) H 07/22/19 06:21 Neutrophils # 12.8 K/mcL (1.6-8.9) H 07/22/19 06:21 Haptoglobin 224 mg/dL (30-200) H 07/22/19 12:31 Heparin Anti-Xa, Unfract 0.19 IU/mL (0.30-0.70) L 07/25/19 10:00 ABG pH 7.27 pH Units (7.32-7.45) L 07/22/19 08:23 ABG pCO2 23 mmHg (35-45) L 07/22/19 08:23 ABG HCO3 10 mEq/L (21-27) L 07/22/19 08:23 ABG Total CO2 11 mEq/L (20-26) L 07/22/19 08:23 ABG Base Excess -15 mEq/L (-2 to 3) L 07/22/19 08:23 VBG pO2 78 mmHg (25-50) H 07/24/19 02:31 VBG HCO3 29 mEq/L (21-27) H 07/24/19 02:31 Potassium 5.2 mEq/L (3.5-5.1) H 07/22/19 04:06 Carbon Dioxide 20 mEq/L (23-29) L 07/22/19 16:22 BUN 23 mg/dL (6-20) H 07/24/19 02:05 Creatinine 2.19 mg/dL (0.60-1.20) H 07/25/19 03:30 Est GFR ( Amer) 28 (> 60) L 07/25/19 03:30 Est GFR (Non-Af Amer) 23 (> 60) L 07/25/19 03:30 Glucose 133 mg/dL (70-105) H 07/25/19 03:30 POC Glucose 182 mg/dL (70-99) H 07/25/19 18:23 Calculated Osmolality 306 (280-300) H 07/23/19 03:18 Lactic Acid 4.8 mmol/L (0.5-2.2) H* 07/22/19 12:31 Uric Acid 14.1 mg/dL (2.3-7.6) H 07/22/19 12:31 Calcium 8.4 mg/dL (8.6-10.3) L 07/25/19 03:30 Venous Ioniz Calcium 1.08 mmol/L (1.15-1.35) L 07/23/19 08:47 Phosphorus 10.1 mg/dL (2.7-4.5) H 07/21/19 19:06 AST 50 Units/L (13-39) H 07/23/19 03:18 Lactate Dehydrogenase 135 Units/L (140-271) L 07/22/19 12:31 Troponin I 7.97 ng/mL (< 0.04) H* 07/23/19 11:15 Serum Total Protein 6.1 g/dL (6.4-8.9) L 07/25/19 03:30 Albumin 3.4 g/dL (3.5-5.7) L 07/25/19 03:30 Procalcitonin 0.26 ng/mL (0.00-0.15) H 07/24/19 02:05 Free T4 0.48 ng/dl (0.70-2.00) L 07/22/19 12:31 Thyroxine (T4) 4.86 mcg/dL (5.50-11.00) L 07/22/19 12:31 Free T3 1.48 pg/mL (2.50-3.90) L 07/22/19 12:31 Total T3 0.58 ng/mL (0.87-1.78) L 07/22/19 12:31 Urine Color Red (Yellow) A 07/24/19 11:00 Urine Clarity Hazy (Clear) A 07/24/19 11:00 Urine Protein 30 mg/dL (Neg-Trace) H 07/24/19 11:00 Urine Ketones Trace mg/dL (Negative) H 07/24/19 11:00 Urine Blood Large (Negative) H 07/24/19 11:00 Ur Leukocyte Esterase Large (Negative) H 07/24/19 11:00 Urine Microscopic RBC 50-100 per hpf (0-3) H 07/24/19 11:00 Urine Microscopic WBC 5-15 per hpf (0-3) H 07/24/19 11:00 Urine Bacteria Moderate per hpf (None-Few) H 07/24/19 11:00 Urine Yeast Few per hpf (None Seen) H 07/24/19 11:00 Ur Culture Indicated? YES (NO) A 07/24/19 11:00 Tot Complement (CH50) 171 Units (60-144) H 07/22/19 12:31 - Microbiology Findings Microbiology Findings: Microbiology, Last 48 Hours 07/22/19 16:33 Urine Culture - Final Urine,Clean Catch Enterococcus faecium 07/24/19 11:00 Urine Culture - Preliminary Urine,Clean Catch Culture is incubating. - Clinical Findings Intake & Output: Intake & Output 07/25/19 07/25/19 07/25/19 07:59 15:59 23:59 Intake Total 110 / 1475 955 / 1475 410 / 1475 Output Total 1340 / 1340 0 / 1340 Balance -1230 / 135 955 / 135 410 / 135 - Attending Attestation - Attending Attestation I saw and evaluated this patient and my medical decision-making was reviewed with the Resident Physician. I agree with the documented findings, disposition and treatment plan as described except to the extent set forth below. We independently had [id number] contact with the patient Patient seen and examined at bedside Labs, radiology, chart personally reviewed. Management was reviewed during multidisciplinary critical care rounds. CARDIO TECH: Patient has encephalopathy responding to verbal stimuli answering some questions with one-word answers patient is episodically confused since patient had the previous seizures disorder to continue the anti-epileptic medication will consult neurology ECG did not show any evidence of seizure activity most likely toxic/metabolic encephalopathy 07/23 patient is more alert conscious oriented follows commands able to participate in the complicated medical decision-making. 07/24 patient is conscious oriented 3 participate in medical decision-making. 07/25 patient is conscious oriented 3 Pulm: Patient has acceptable oxygenation and ventilation patient is primarily metabolic acidosis with inadequate consult compensation will closely monitor patient is on vasopressor therapy patient has a high risk for respiratory failure and need for intubation and mechanical ventilation. Patient V/Q mismatch is complicated by left sided bandlike consolidation 07/23 patient is supple oxygenation and ventilation patient has this bandlike consolidation cover with broad-spectrum antibiotics. 07/24 patient has acceptable oxygenation and ventilation has some bandlike consolidation. Cardiovascular broad-spectrum antibiotics 07/25 patient has acceptable oxygenation and ventilation will de-escalate the broad-spectrum antibiotics Cards: Patient is an most likely septic shock the troponin leak might be subendocardial ischemia or acute coronary syndrome cardiology was consulted patient to get limited echocardiogram to look for wall motion abnormalities troponin is slowly trending up to there is wall motion abnormalities. With IV heparin drip according to cardiology no cardiac catheterization for now. Patient is on norepinephrine drip most likely due to septic shock possible pneu monia source 07/23 patient shock has resolved hemodynamically stable patient is tolerating CVVH. Patient has troponins leak with peak at 10 discuss with cardiology patient will undergo cardiac catheterization. 07/24 patient had non-ST elevation NC echocardiogram good LV systolic function no regional wall motion abnormalities patient has acute on chronic kidney injury because of this interventional cardiology spoke with the family and patient because of the risk off the prolonged kidney injury patient wanted to wait . it was decided by cardiology and the patient, patient does not want to pursue cardiac catheterization. account manager relief agrees with the plan of the patient. 07/25 patient had non-ST elevation NC discuss with cardiology and with patient patient not to have cardiac catheterization as an outpatient. FEN-GI: We will keep her nothing by mouth IV PPI, CT abdomen pelvis shows some evidence of colitis with a lactic acidosis concern for ischemic colitis surgery was consulted to continue IV antibiotics for ischemic bowel at this point appreciate surgery input. will keep her NPO 07/24 Advance diet as tolerated 07/25 patient tolerating diet decently. Renal: Patient has acute on chronic kidney injury with severe non-gap acidosis and hyperkalemia due to hemodynamic instability but stability Patient is started on CVVH 07/23 to continue CVVH. 07/24 she is hemodynamically stable after the set clots nephrology might evaluate the patient for hemodialysis. 07/25 now patient is hemodynamically stable at more than 48 hours patient will be a candidate for hemodialysis. Nephrology following appreciate their input ID: To cover with broad-spectrum antibiotics and follow cultures de-escalate according to cultures. 07/25 to de-escalate antibiotics Heme/Onc: Labs reviewed Endo: Glucose Monitored , 07/24 . De-escalate the hydrocortisone. Integ/MSK: Skin Care per routine ICU Nursing Protocol to prevent ulcers. Lines: All lines examined without evidence of infection : Dispo: When she is stable clinically significant with transferred to 2 year medical telemetry. CODE:Full Code
--- NOTE | 2019-07-25 11:49 | Electrocardiograph Report ---
[address] [place], [place] [address] Test Date: 2019-07-25 Pat Name: Belinda Pisano Department: 109 Room: 10 Gender: F Marketing Professor: : [id number] Requested By: Jessica Colon Order Number: [id number] Reading MD: Gerhard Stratton Measurements Intervals [place] Rate: 78 P: 37 OK: 179 QRS: 46 QRSD: 99 T: 46 QT: 402 QTc: 436 Interpretive Statements SINUS RHYTHM MINIMAL ST DEPRESSION Electronically Signed On 07-25-2019 11:47:41 EDT by Gerhard Stratton
--- NOTE | 2019-07-25 11:51 | Internal Med Progress Note ---
Hospitalist Progress Note - Encounter Date of Encounter: 07/25/19 Time of Encounter: 11:44 - Subjective Interval History: Ms. Pisano is a 53 year old female who was recently discharged from our facility on 07/15/2019. Patient has a history of diabetes mellitus type 2, hypertension, hyperlipidemia, seizures, chronic kidney disease stage III, chronic pain, obesity. During her last admission she was admitted for altered mental status, with a blank stare. He had an extensive evaluation occluding urine drug screen at that time which was negative. She was noted to have a CK level and a benign 100s and acute kidney injury with a creatinine of 3.5 range. She was treated for urinary tract infection and on arrival to our facility at that time had ge neralized seizures. In by neurology and nephrology at this time. She had an EEG which showed generalized seizure disorder. Patient had been on Topamax 300 mg twice a day, and was having altered mental status from this and thus neurology decrease her Topamax to 100 mg twice a day. Patient was aggressively hydrated, her renal function improved back to near baseline at 1.8 creatinine, and her CK normalized. Pt was sent home to continue a course of Cefdinir for urinary tract infection. Patient presented to [facility] emergency room today with altered mental status. Per the ER physician the only verbal response patient would give was "my hips, my face". She could not explain what she meant by this or provide any further history. Patient otherwise had a fairly blank stare no witnessed seizure activity. Patient had extensive workup while at [facility] emergency room including a CT of her hips CT of her head which showed no acute process. Chest x-ray was negative. Her vital signs on presentation showed her to be initially hypotensive with a blood pressure in the 70 systolic which improved after 1 L of IV fluids. She was satting well on room air. Laboratory studies showed a white count of 16.9, hemoglobin 12.4 platelets 341,000. 66 segs, 27 lymphs, 5 monos. Sodium 134 potassium 5.8 chloride 101 CO2 10. 79 creatinine 11.5 glucose 141 liver enzymes normal ammonia 32 CK 126 lactic ac id 3.2. Patient was treated with D50, insulin and bicarbonate 1 amp for her hyperkalemia. A repeat BMP showed her electrolytes not significant weight change except for potassium slightly increased now 6.2. Patient was given 2 L of IV fluids and sent here for further treatment. 9/25: Patient has shown significant improvement today from a mentation standpoint. She still has a mild delirium tremens since she is awake alert and oriented 3. Patient started on CRRT yesterday, this morning her numbers are improving and she has had good urine output, previously this she was anuric. Unfortunately her troponin continued to rise to a peak of 10.77, now is trending down. Cardiology is aware and is planning for left heart catheterization. She is now started on a heparin drip for non-STEMI. 07/25: Patient continues to improve. Altered mental status is resolved. Nephrology is following and planning intermittent hemodialysis supposed to CRRT. Cardiology has decided to postpone heart catheterization and not to acutely. I discussed this case with Dr. Vale in detail regarding decision on heart catheterization. I discussed this also with the patient and family. This morning patient states she feels well. She does have ongoing issues with chest pain which has been persistent for the last 24 hours. EKG is unchanged. This may be musculoskeletal in nature. Do not suspect pulmonary embolism. Well's score is low risk. Patient denies any fevers or chills. No nausea or vomiting. No shortness of breath. Heparin drip to be stopped (was added for non-STEMI). Patient's creatinine is down to 2.19 today, and she is having excellent urine output. She does have a period on her right upper arm which is firm and indurated, and ultrasound was ordered which by report showed varicose veins. This needs to be followed up as official report is pending. She did say she felt prior to admission and believes she landed on her right arm. Other than that mentioned above a 10 point review of systems is negative Patient is otherwise doing well and stable for transfer to [facility]. Cardiology, and nephrology are still following. - Exam Vitals: Temp Pulse Resp BP Pulse Ox 99.5 F 71 20 134/87 94 07/25/19 11:41 07/25/19 11:00 07/25/19 11:00 07/25/19 11:07/25/19 11:00 Exam: Obese, no acute distress, delerium - Head Head exam: Present: atraumatic, normocephalic - Eye Eye exam: Present: PERRL, conjuntiva pink, sclera anicteric Pupils: Present: PERRL - Neck Neck exam general surgery: Present: supple, trachea midline. Absent: lymphadenopathy. He will dialysis catheter right neck - Respiratory Respiratory exam: Present: CTAB (Dimin bs bases). Absent: accessory muscle use, rales, rhonchi, wheezes - Cardiovascular Cardiovascular exam: Present: RRR, +S1, +S2. Absent: diastolic murmur, gallop, rubs, systolic murmur - GI/Abdominal GI/Abdominal exam: Present: normal bowel sounds, soft, no peritoneal signs. Absent: distended, tenderness - Extremities Exam Extremities exam: Present: warm, radial pulses palpable and symmetrical. Absent: calf tenderness, cyanotic, pedal edema - Neurological Exam Neurological exam: Present: CN II-XII intact, oriented X3 (oriented x 2, vague answers to questions, answers with repeated questioning), no focal deficits. Absent: pronater drift, facial droop, speech deficit - Skin Skin exam: Present: dry, intact (Cap refill <2.5 sec). Patient has approximately a 3" x 2" area of induration and eccymosis on her right upper arm. Patient thinks this was bruised when she fell prior to admission. - Summary of Assessment and Plan Summary of Assessment and Plan: Acute kidney injury -Patient had a catheter placed, will monitor urine output closely. I do not see any documented, will verify -Stat renal sonogram rule out obstruction -High concern for HTN -Continue with IV fluids, likely will add sodium bicarbonate -I discussed the case with Dr. Comer in nephrology who will see this patient in AM 07/25: Status post CRRT. She has a hemodialysis catheter in her right neck. Nephrology is following. Convert to intermittent hemodialysis. Hopefully stop dialysis altogether in near future Anion gap metabolic acidosis -Multifactorial, I do see metformin on her medication list will need to verify that she is still not on this -Could be related to seizures -Urine drug screen ordered, Tylenol level ordered. -resolved NonSTEMI -cardiology planning [facility] -heparin drip started, asa, lipitor, no BB due to hypotension 07/24: Cardiology is now holding off on catheterization. Will discuss with them today. 07/25: Patient has been discussed at length with cardiology who prefers to defer catheterization at this time, they do not believe it is an urgent issue. [facility] medical management for now. Hyperkalemia -Patient received acute treatment for this -potassium remains elevated, ice discuss this with the emergency department and would recommend an additional acute treatment prior to transfer -will place patient on additional bicarbonate all fully correct her metabolic acidosis which is likely at least significantly contributing to her hyperkalemia -She did not show any EKG changes 07/24: Resolved Acute gastroenteritis -Maybe a viral presentation, rule out infection -She does have a leukocytosis, I will check a flat plate abdomen -Patient does not have a fever, but she does have a leukocytosis, elevated lactic acid -Urine looks clear -Cannot rule out a GI infection, bacterial. Therefore I will start patient empirically on renally dosed Zosyn. -Cannot perform a CT abdomen with contrast due to acute kidney injury -check C Diff Toxin assay, add enteric Vnco until C Diff ruled out, leif while ongoing abx 07/23: Day #3 IV Zosyn for colitis. May stop soon. 07/25: Symptoms have resolved, stopped Zosyn as no obvious bacterial infection. Continue to monitor. Altered mental status -Possibly related to have recurrent seizures, polypharmacy -Resolved Seizures -Continue on her Topamax at reduced dose -EEG done this admission showed no seizure activity ?Metformin Toxicity -Patient states she has been taking metformin for back pain. She has a very difficult historian. I do see that metformin was listed as one of her discharge medications, she does have chronic kidney disease stage III -DC metformin indefinitely, monitor blood sugar levels, monitor acid base status Chronic pain -We evaluate her pain medication list as ischemic contribute to her altered mental status Diabetes mellitus type 2 -Patient achieving reasonable glycemic control with sliding scale insulin, she will likely need to be on insulin indefinitely given her renal dysfunction DVT prophylaxis -heparin Sub Q Morbid Obesity Full code - Time Spent with Patient Total time spent is greater than 50% in coordination of care (as documented) at patient's floor/unit and/or counseling patient: Greater than 35 minutes Internal Medicine: Result - Labs CBC & Chem 7: 07/25/19 03:30 07/25/19 03:30 Labs: Short CBC 07/25/19 Range/Units 03:30 WBC 8.4 (4.3-11.1) K/mcL Hgb 9.5 L (11.5-15.4) g/dL Hct 28.5 L (35.3-44.9) % Plt Count 223 (140-400) K/mcL Neutrophils # 4.3 (1.6-8.9) K/mcL BMP 07/25/19 03:30 Sodium 138 Potassium 3.5 Chloride 103 Carbon Dioxide 28 BUN 15 Creatinine 2.19 H Glucose 133 H Calcium 8.4 L Liver Function 07/25/19 Range/Units 03:30 Total Bilirubin 0.4 (0.3-1.0) mg/dL AST 14 (13-39) Units/L ALT 8 (7-52) Units/L Alkaline Phosphatase 61 (34-104) Units/L Albumin 3.4 L (3.5-5.7) g/dL Urine 07/24/19 Range/Units 11:00 Urine Color Red A (Yellow) Urine Clarity Hazy A (Clear) Urine pH 7.0 (5.0-8.0) pH Units Ur Specific [place] 1.012 (1.010-1.025) Urine Protein 30 H (Neg-Trace) mg/dL Urine Glucose (UA) Normal (Normal) mg/dL - ABG Interpretation ABG results: ABG ABG pH 7.27 pH Units (7.32-7.45) L 07/22/19 08:23 ABG pCO2 23 mmHg (35-45) L 07/22/19 08:23 ABG pO2 86 mmHg (85-104) 07/22/19 08:23 ABG O2 Saturation 95 % (95-98) 07/22/19 08:23 PT/INR, D-dimer PT 11.3 Seconds (9.4-12.1) 07/25/19 03:30 - Impressions Impressions Ankle X-Ray 07/25/19 11:09 IMPRESSION: No acute osseous abnormality of the left ankle evident. D/ / Michael Hall MD / Michael Hall MD Interpreting Provider: Michael Hall MD Consult Discharge Plan - Plan Referrals: Rajni Levy, CODING COMPLIANCE SPECIALIST [Primary Care Provider] -
[2019-07-25] MEDS: *HR* Heparin 5,000 UNIT/ML VIAL IVP PRN (12:06)
[2019-07-25] MEDS ORDERED: Dextrose Gel 15 GM/37.5 ML TUBE PO PRN ×2 (12:15)
[2019-07-25] MEDS ORDERED: D5% in Water 1,000 ML IVC PRN (12:15)
[2019-07-25] MEDS ORDERED: 0.9 % Sodium Chloride 1,000 ML PRIME PRN (12:15)
[2019-07-25] MEDS ORDERED: *HR* Dextrose 50 % in Water (Syg) 50 ML SYRINGE IVP PRN (12:15)
--- NOTE | 2019-07-25 12:40 | Nephrology Progress Note ---
Date of Encounter: 07/25/19 Time of Encounter: 08:30 - Assessment and Plan (1) Acute kidney injury superimposed on chronic kidney disease Current Visit: No Status: Acute Not hypotensive and now off CRRT. Doing relatively well in terms of volume status. Though the SCr appears lower today, this could represent the clearance from CRRT, but nevertheless, I do not recommend further CRRT or HD today. Please keep the temp HD catheter in place for now and will have to reassess daily for dialysis needs. She is hemodynamcially stable and not requiring CRRT, so she does not need to remain in the ICU from a Nephrology perspective; discussed with the ICU team. Will continue to follow with you on this complex pt who required a high degree of E/M and MDM. (2) Encephalopathy acute Current Visit: No Status: Acute (3) Hyperkalemia Current Visit: No Status: Acute (4) Elevated lactic acid level Current Visit: Yes Status: Acute Subjective Principal diagnosis: elevated troponin Interval history: Pt was s/e earlier today in the ICU. She reported feeling relatively well and voiced having hunger and did not affirm having active N/V/D. She did not affirm confusion or other uremic symptoms today. Objective - Vital Signs Vital signs: Vital Signs Temp Pulse Resp BP Pulse Ox 07/25/19 11:41 99.5 F 07/25/19 11:00 71 20 134/87 94 07/25/19 10:00 73 20 114/75 94 07/25/19 09:00 81 20 125/67 93 07/25/19 08:00 81 20 128/75 93 07/25/19 07:23 98.6 F 07/25/19 06:00 70 18 123/76 94 07/25/19 05:00 68 18 121/75 93 07/25/19 04:00 68 18 111/73 93 07/25/19 03:00 68 18 106/79 93 07/25/19 02:00 72 18 128/96 92 07/25/19 01:00 98.1 F 80 20 122/77 91 07/25/19 00:00 65 18 133/80 94 07/24/19 23:00 62 18 106/79 93 07/24/19 22:00 70 18 125/85 93 07/24/19 21:00 97.6 F 76 18 143/80 97 07/24/19 20:00 74 20 144/68 93 07/24/19 19:00 74 20 151/88 96 07/24/19 18:00 69 19 154/85 95 07/24/19 17:00 71 19 145/87 94 07/24/19 16:00 97.7 F 72 20 144/78 95 07/24/19 15:00 68 19 137/79 96 07/24/19 14:00 70 19 130/58 95 07/24/19 13:00 71 20 141/88 95 Intake and Output 07/24/19 07/25/19 07/25/19 23:59 07:59 15:59 Intake Total 670 / 1511 110 / 570 460 / 570 Output Total 1830 / 3794 1340 / 1340 Balance -1160 / -2283 -1230 / -770 460 / -770 Intake: IV Fluids 100 / 281 50 / 150 100 / 150 PrismaSATE BGK 4/2.5 5,000 ML @ 0 / 0 1500 mls/hr CRRT CONT [place] Rx#: [id number] Heparin 25,000 UNIT/250 ML D5W 100 / 181 50 / 150 100 / 150 25,000 unit In 250 ml @ 8 UNIT/ KG/HR 9.904 mls/hr IVC .Q24H [facility] Rx#:[id number] Oral 570 / 1230 60 / 420 360 / 420 Output: Catheter 720 / 2430 1340 / 1340 Fluid Removed by Prismaflex 1110 / 1364 0 / 0 Other: Meal Breakfast Percent of Meal Consumed 95% Blood Glucose* 131 141 102 - General Appearance General appearance: Present: well-developed, well-nourished, appears started age, obese EENT: Present: ATNC, PERRL, mucous membranes moist Neck: Present: supple Respiratory: Present: clear Cardiology: Present: edema (trace hand and pedal edema bilaterally), regular rate, regular rhythm, normal S1, normal S2 Dialysis Vascular Access: Venous Catheter (right sided temporary HD catheter with Tegaderm in place) Gastrointestinal: Present: normoactive bowel sounds, no tenderness, no guarding Integumentary: Present: chronic venous stasis Neurologic: Present: no focal deficit, no asterixis, alert and oriented x3 Musculoskeletal: Present: no cyanosis, no clubbing Psychiatric: Present: mood/affect appropriate, cooperative - Lab 07/25/19 03:30 07/25/19 03:30 Most recent lab results 07/25/19 03:30 Calcium 8.4 L - Imaging Kidney/bladder ultrasound: report reviewed (The right kidney measures 13.0 x 4.5 x 6.4 cm in length and the left kidney) Consult Discharge Plan - Plan Referrals: Rajni Levy, REAL ESTATE ATTORNEY [Primary Care Provider] -
[2019-07-25] MEDS ORDERED: Insulin LISPRO 300 UNITS/3 ML VIAL SQ SCH ×2 (16:00→16:30)
[2019-07-25 18:45] LABS: ANA HEp-2 IgG IFA DETECTED (<1:80); Anti Nuclear Ab Pattern SPECKLED
[2019-07-26 03:59] LABS: Basophils % 0.3 %; Eosinophils # 0.2 K/mcL (0.0-0.6); Eosinophils % 2.4 %; Hematocrit 28.6 % (35.3-44.9); Hemoglobin 9.4 g/dL (11.5-15.4); Immature Granulocytes % 0.5 % (0-4); Lymphocytes # 3.3 K/mcL (0.6-4.6); Lymphocytes % 37.3 %; Mean Corpuscular HGB Conc 32.9 g/dL (31.6-35.5); Mean Corpuscular Hemoglobin 29.7 pg (28.0-33.3); Mean Corpuscular Volume 90.2 fL (83.0-100.0); Mean Platelet Volume 9.7 fL (9.4-12.4); Monocytes # 0.5 K/mcL (0.0-1.3); Monocytes % 5.6 %; Neutrophils # 4.7 K/mcL (1.6-8.9); Platelet Count 220 K/mcL (140-400); Red Blood Count 3.17 M/mcL (3.82-4.97); Red Cell Distribution Width 13.2 % (11.5-14.5); Segmented Neutrophils % 53.9 %; White Blood Count 8.7 K/mcL (4.3-11.1)
[2019-07-26 04:11] LABS: Calcium 8.9 mg/dL (8.6-10.3); Potassium 3.3 mEq/L (3.5-5.1)
[2019-07-26] MEDS: *HR* Enoxaparin 30 MG/0.3 ML SYRINGE SQ SCH (06:14)
--- NOTE | 2019-07-26 07:49 | Internal Med Progress Note ---
Hospitalist Progress Note - Encounter Date of Encounter: 07/26/19 Time of Encounter: 09:00 - Subjective Interval History: Transferred from ICU to the floor yesterday - Exam Vitals: Temp Pulse Resp BP Pulse Ox 98.3 F 62 16 138/84 94 07/26/19 04:00 07/26/19 04:00 07/26/19 04:00 07/26/19 04:00 07/26/19 04:00 Exam: General appearance: Present: A&O X 3, no acute distress Head exam: Present: normocephalic Respiratory exam: Present: CTAB. Absent: accessory muscle use, rales, rhonchi, wheezes Cardiovascular exam: Present: RRR, +S1, +S2. Absent: diastolic murmur, gallop, rubs, systolic murmur GI/Abdominal exam: Soft, NT, ND, +BS Extremities exam: Absent: pedal edema Neurological exam: Present: alert, oriented X3, no focal deficits. Absent: altered - Assessment and Plan (1) Acute renal failure Current Visit: Yes Status: Acute Assessment and Plan: Pt came in with altered mental status and kidney failure possibly 2/2 to dehydration, sepsis , hypotension Was on dialysis per renal and temp line in place. Patient is not oliguric and not requiring dialysis at this time Renal following. continue current management (2) Encephalopathy acute Current Visit: Yes Status: Acute Assessment and Plan: Possibly secondary to severe dehydration/ seizure complicated by renal failure and NSTEMI Back to baseline (3) NSTEMI (non-ST elevated myocardial infarction) Current Visit: Yes Status: Acute Assessment and Plan: -cardiology planning [facility] -heparin drip started, asa, lipitor, no BB due to hypotension 07/24: Cardiology is now holding off on catheterization. Will discuss with them today. 07/25: Patient has been discussed at length with cardiology who prefers to defer catheterization at this time, they do not believe it is an urgent issue. Holding LHC due to kidney function (4) Colitis Current Visit: Yes Status: Acute Assessment and Plan: Resolved with zosyn (5) Seizure Current Visit: Yes Status: Acute Assessment and Plan: Continue anti seizure meds (6) Diabetes mellitus Current Visit: Yes Status: Chronic Assessment and Plan: Continue insulin and monitor fingersticks (7) Morbid obesity Current Visit: Yes Status: Acute Assessment and Plan: Diet and exercise (8) DVT prophylaxis Current Visit: Yes Status: Acute Assessment and Plan: Heparin sc - Time Spent with Patient Total time spent is greater than 50% in coordination of care (as documented) at patient's floor/unit and/or counseling patient: Internal Medicine: Result - Labs CBC & Chem 7: 07/26/19 03:40 07/26/19 03:40 Labs: Short CBC 07/26/19 Range/Units 03:40 WBC 8.7 (4.3-11.1) K/mcL Hgb 9.4 L (11.5-15.4) g/dL Hct 28.6 L (35.3-44.9) % Plt Count 220 (140-400) K/mcL Neutrophils # 4.7 (1.6-8.9) K/mcL BMP 07/26/19 03:40 Sodium 137 Potassium 3.3 L Chloride 104 Carbon Dioxide 25 BUN 24 H Creatinine 3.01 H Glucose 135 H Calcium 8.9 - ABG Interpretation ABG results: ABG ABG pH 7.27 pH Units (7.32-7.45) L 07/22/19 08:23 ABG pCO2 23 mmHg (35-45) L 07/22/19 08:23 ABG pO2 86 mmHg (85-104) 07/22/19 08:23 ABG O2 Saturation 95 % (95-98) 07/22/19 08:23 PT/INR, D-dimer PT 11.3 Seconds (9.4-12.1) 07/25/19 03:30 - Impressions Impressions Ankle X-Ray 07/25/19 11:09 IMPRESSION: No acute osseous abnormality of the left ankle evident. D/ / Michael Hall MD / Michael Hall MD Interpreting Provider: Michael Hall MD Consult Discharge Plan - Plan Referrals: Rajni Levy, ORACLE APPLICATIONS DEVELOPER [Primary Care Provider] - ____ (1) Acute renal failure Qualifiers: Acute renal failure type: unspecified Qualified Code(s): N17.9 - Acute kidney failure, unspecified (6) Diabetes mellitus Qualifiers: Diabetes mellitus type: type 2 Diabetes mellitus retirement insulin use: without long chain beamer use Diabetes mellitus complication status: with kidney complications Diabetes mellitus complication detail: with chronic kidney disease Chronic kidney disease stage: stage 3 (moderate) Qualified Code(s): E11.22 - Type 2 diabetes mellitus with diabetic chronic kidney disease; N18.3 - Chronic kidney disease, stage 3 (moderate)
[2019-07-26] MEDS: Insulin LISPRO 300 UNITS/3 ML VIAL SQ SCH ×4 (07:59→20:32)
[2019-07-26] MEDS ORDERED: Potassium Chloride Elixir 20 MEQ/15 ML UDC PO SCH (08:00)
[2019-07-26] MEDS: Aspirin Enteric Coated 81 MG Tablet PO SCH (08:54)
[2019-07-26] MEDS: Topiramate 100 MG TABLET PO SCH ×2 (08:54→20:31)
[2019-07-26] MEDS: *HR* Acetylcysteine 20% 600 MG/3 ML ORAL SYRINGE PO SCH ×2 (09:45→21:17)
--- NOTE | 2019-07-26 10:42 | Nephrology Progress Note ---
Date of Encounter: 07/26/19 Time of Encounter: 08:25 - Assessment and Plan (1) Acute kidney injury superimposed on chronic kidney disease Status: Acute Though SCr was worse today, the GFR was >15, and she did not affirm uremic symptoms or edema. She affirmed making lots of urine. So will hold off and not recommend CAGE CASHIER today (Sunday), but I do recommend keeping the temporary HD catheter in place. The UA had granular casts noted, which strongly suggests ATN. Recommend resuming her KCl as she is hypokalemic. Will continue to follow with you on this complex pt who required a high degree of E/M and MDM. Continue to follow a renal protective strategy as able. Thank you (2) Encephalopathy acute Status: Inactive (3) Hyperkalemia Status: Inactive (4) Elevated lactic acid level Status: Acute Subjective Principal diagnosis: elevated troponin Interval history: The patient was seen and examined earlier in the day. She reported feeling relatively well, and did not affirm having diminished appetite, or nausea, vomiting, or diarrhea. She did not affirm having chest pain. She reported that she feels that her swelling is starting to improve. Objective - Vital Signs Vital signs: Vital Signs Temp Pulse Resp BP Pulse Ox 07/26/19 07:50 98.0 F 66 16 137/80 98 07/26/19 04:00 98.3 F 62 16 138/84 94 07/26/19 00:01 99.1 F 65 12 128/81 94 07/25/19 21:00 98.4 F 68 16 125/80 95 07/25/19 20:09 76 18 97 07/25/19 18:30 74 18 97 07/25/19 18:13 76 07/25/19 18:00 98.1 F 79 16 137/74 96 07/25/19 17:00 67 07/25/19 16:41 98.6 F 69 16 145/90 96 07/25/19 13:59 81 07/25/19 11:41 99.5 F 07/25/19 11:00 71 20 134/87 94 Intake and Output 07/25/19 07/26/19 07/26/19 23:59 07:59 15:59 Intake Total 410 / 1475 240 / 240 Output Total 1000 / 2340 900 / 900 Balance -590 / -865 -900 / -660 240 / -660 Intake: Oral 410 / 1310 240 / 240 Output: Urine 1000 / 1000 Urine/Stool Mix 900 / 900 Other: Meal Dinner Breakfast Percent of Meal Consumed 100% 100% Stool Size Moderate Small Stool Consistency loose loose Stool Characteristics Normal for Patient Stool Color Yellow Brown Brown # Voids 1 1 # Bowel Movements 1 Weight 125.5 kg Blood Glucose* 123 133 256 Patient Weight 07/26/19 23:59 Weight 125.5 kg - General Appearance Exam: General appearance: Present: well-developed, well-nourished, appears started age, obese EENT: Present: ATNC, PERRL, mucous membranes moist Neck: Present: supple Respiratory: Present: clear Cardiology: Present: no edema, regular rate, regular rhythm, normal S1, normal S2 Dialysis Vascular Access: Venous Catheter (right sided temporary HD catheter with dressin in place and C/D/I) Gastrointestinal: Present: normoactive bowel sounds, no tenderness, no guarding Integumentary: Present: chronic venous stasis Neurologic: Present: no focal deficit, no asterixis, alert and oriented x3 Musculoskeletal: Present: no cyanosis, no clubbing Psychiatric: Present: mood/affect appropriate, cooperative - Lab 07/28/19 04:55 07/28/19 04:55 Most recent lab results 07/26/19 03:40 Calcium 8.9 Consult Discharge Plan - Plan Instructions: Cephalexin (By mouth), Metoprolol (By mouth), Loperamide (By mouth), Glipizide (By mouth), Atorvastatin (By mouth) Referrals: Victor Hugo Burr MD [Partnered Physician] - (Web requested 07/28/2019) Rajni Levy CNP [Primary Care Provider] - 08/01/19 2:00 pm (Please follow up as schedule) Hadley Skelton CNP [Advanced Practice Nurse] - 08/04/19 10:30 am (Please follow up a schedule..) Joey Morales DO [Partnered Physician] - (Packing Clerk will call patient for a appt.) Prescriptions: GlipiZIDE [Glucotrol Xl] 2.5 mg PO DAILY 30 Days #30 tab.[id number] Prescription Printed Loperamide [Imodium] 2 mg PO Q4HR PRN #30 capsule PRN Reason: Diarrhea Prescription Printed cephALEXin [Keflex] 500 mg PO BID #6 capsule Prescription Printed Atorvastatin [Lipitor] 80 mg PO HS #60 tablet Prescription Printed Metoprolol [Lopressor] 25 mg PO BID #60 tablet Prescription Printed
--- NOTE | 2019-07-27 03:45 | Event Note ---
Date of Encounter: 07/27/19 Time of Encounter: 00:00 Alerted by patient's nurse PERLA Woodruff the patient had an odd looking bruise on her right upper arm. Patient stated she had fallen days before she came into the hospital. Nurse had outlined the bruise previously which was now increasing in size and becoming hard. Went to see patient who was resting in bed and examined her RUE which was increasing in size from the area marked previously. Stat CT of the RUE ordered and showed mild skin thickening and subcutaneous fat stranding involving anterior soft tissues of the proximal right upper extremity most consistent with mild focal cellulitis. There is no evidence of walled off fluid collection or soft tissue gas as an abscess. No radiopaque foreign body is identified. No acute osseous abnormality of the visualized upper extremity. No evidence of osteomyelitis. Stable mild multifocal airspace disease throughout the right lung similar to prior study of 06/30/19. IVPB Rocephin 2,000 mg Q24HR ordered to start now for cellulitis. Nurse instructed to continue monitoring this pt. very closely for signs of worsening infection or sepsis criteria and alert me immediately.
[2019-07-27 05:27] LABS: Basophils % 0.3 %; Eosinophils # 0.2 K/mcL (0.0-0.6); Hematocrit 29.7 % (35.3-44.9); Hemoglobin 9.5 g/dL (11.5-15.4); Immature Granulocytes % 0.6 % (0-4); Lymphocytes # 3.7 K/mcL (0.6-4.6); Lymphocytes % 32.4 %; Mean Corpuscular Hemoglobin 28.9 pg (28.0-33.3); Mean Corpuscular Volume 90.3 fL (83.0-100.0); Mean Platelet Volume 9.7 fL (9.4-12.4); Monocytes # 0.4 K/mcL (0.0-1.3); Monocytes % 3.8 %; Neutrophils # 6.9 K/mcL (1.6-8.9); Platelet Count 234 K/mcL (140-400); Red Blood Count 3.29 M/mcL (3.82-4.97); Red Cell Distribution Width 13.3 % (11.5-14.5); Segmented Neutrophils % 60.9 %; White Blood Count 11.3 K/mcL (4.3-11.1)
[2019-07-27] MEDS: cefTRIAXone 2,000 MG in 0.9 % Sodium Chloride Mini Bag 100 ML IVPB SCH (05:27)
[2019-07-27 05:39] LABS: Calcium 9.5 mg/dL (8.6-10.3); Potassium 3.4 mEq/L (3.5-5.1)
[2019-07-27] MEDS: *HR* Enoxaparin 30 MG/0.3 ML SYRINGE SQ SCH (07:16)
--- NOTE | 2019-07-27 07:56 | Internal Med Progress Note ---
Hospitalist Progress Note - Encounter Date of Encounter: 07/27/19 Time of Encounter: 08:00 - Subjective Interval History: No acute events overnight - Exam Vitals: Temp Pulse Resp BP Pulse Ox 98.7 F 65 16 121/69 96 07/27/19 03:19 07/27/19 03:19 07/27/19 03:19 07/27/19 03:19 07/27/19 03:19 Exam: General appearance: Present: A&O X 3, no acute distress Head exam: Present: normocephalic Respiratory exam: Present: CTAB. Absent: accessory muscle use, rales, rhonchi, wheezes Cardiovascular exam: Present: RRR, +S1, +S2. Absent: diastolic murmur, gallop, rubs, systolic murmur GI/Abdominal exam: Soft, NT, ND, +BS Extremities exam: Absent: pedal edema Neurological exam: Present: alert, oriented X3, no focal deficits. Absent: altered - Assessment and Plan (1) Acute renal failure Current Visit: Yes Status: Acute Assessment and Plan: Pt came in with altered mental status and kidney failure possibly 2/2 to dehydration, sepsis , hypotension Was on dialysis per renal and temp line in place. Patient is not oliguric and not requiring dialysis at this time Renal following.Creatinine improved. Still no indication for dialysis. If she remains stable d/c temp line (2) Encephalopathy acute Current Visit: Yes Status: Acute Assessment and Plan: Possibly secondary to severe dehydration/ seizure complicated by renal failure and NSTEMI Back to baseline (3) NSTEMI (non-ST elevated myocardial infarction) Current Visit: Yes Status: Acute Assessment and Plan: -cardiology planning LHC -heparin drip started, asa, lipitor, no BB due to hypotension 07/24: Cardiology is now holding off on catheterization. Will discuss with them today. 07/25: Patient has been discussed at length with cardiology who prefers to defer catheterization at this time, they do not believe it is an urgent issue. Holding LHC due to kidney function (4) Colitis Current Visit: Yes Status: Acute Assessment and Plan: Resolved with zosyn (5) Seizure Current Visit: Yes Status: Acute Assessment and Plan: Continue anti seizure meds (6) Diabetes mellitus Current Visit: Yes Status: Chronic Assessment and Plan: Continue insulin and monitor fingersticks (7) Morbid obesity Current Visit: Yes Status: Acute Assessment and Plan: Diet and exercise (8) Cellulitis Current Visit: Yes Status: Acute Assessment and Plan: Right upper arm cellulitis. continue ceftriaxone (9) DVT prophylaxis Current Visit: Yes Status: Acute Assessment and Plan: Heparin sc - Time Spent with Patient Total time spent is greater than 50% in coordination of care (as documented) at patient's floor/unit and/or counseling patient: Internal Medicine: Result - Labs CBC & Chem 7: 07/27/19 05:00 07/27/19 05:00 Labs: Short CBC 07/27/19 Range/Units 05:00 WBC 11.3 H (4.3-11.1) K/mcL Hgb 9.5 L (11.5-15.4) g/dL Hct 29.7 L (35.3-44.9) % Plt Count 234 (140-400) K/mcL Neutrophils # 6.9 (1.6-8.9) K/mcL BMP 07/27/19 05:00 Sodium 137 Potassium 3.4 L Chloride 110 H Carbon Dioxide 25 BUN 28 H Creatinine 2.83 H Glucose 139 H Calcium 9.5 - ABG Interpretation ABG results: ABG ABG pH 7.27 pH Units (7.32-7.45) L 07/22/19 08:23 ABG pCO2 23 mmHg (35-45) L 07/22/19 08:23 ABG pO2 86 mmHg (85-104) 07/22/19 08:23 ABG O2 Saturation 95 % (95-98) 07/22/19 08:23 PT/INR, D-dimer PT 11.3 Seconds (9.4-12.1) 07/25/19 03:30 - Impressions Impressions Upper Extremity CT 07/27/19 01:38 IMPRESSION: 1. Mild skin thickening and subcutaneous fat stranding involving the anterior soft tissues of the proximal right upper extremity, most consistent with mild focal cellulitis. There is no evidence of a walled-off fluid collection or soft tissue gas is an abscess. No radiopaque foreign body is identified. 2. No acute osseous abnormality of the visualized upper extremity. No evidence of osteomyelitis. 3. Stable mild multifocal airspace disease throughout the right lung, similar to prior study of 07/22/2019. D/ / Rodger Millan MD / Rodger Millan MD Interpreting Provider: Rodger Millan MD Consult Discharge Plan - Plan Referrals: Rajni Levy CNP [Primary Care Provider] - (1) Acute renal failure Qualifiers: Acute renal failure type: unspecified Qualified Code(s): N17.9 - Acute kidney failure, unspecified (6) Diabetes mellitus Qualifiers: Diabetes mellitus type: type 2 Diabetes mellitus [facility] insulin use: without intermediate designer use Diabetes mellitus complication status: with kidney complications Diabetes mellitus complication detail: with chronic kidney disease Chronic kidney disease stage: stage 3 (moderate) Qualified Code(s): E11.22 - Type 2 diabetes mellitus with diabetic chronic kidney disease; N18.3 - Chronic kidney disease, stage 3 (moderate) (8) Cellulitis Qualifiers: Qualified Code(s): L03.90 - Cellulitis, unspecified
[2019-07-27] MEDS ORDERED: Potassium Chloride Elixir 20 MEQ/15 ML UDC PO SCH (08:00)
[2019-07-27] MEDS: Aspirin Enteric Coated 81 MG Tablet PO SCH (08:45)
[2019-07-27] MEDS: Topiramate 100 MG TABLET PO SCH ×2 (08:46→21:15)
[2019-07-27] MEDS: Insulin LISPRO 300 UNITS/3 ML VIAL SQ SCH ×4 (08:46→21:07)
[2019-07-27] MEDS: *HR* Acetylcysteine 20% 600 MG/3 ML ORAL SYRINGE PO SCH (08:46)
--- NOTE | 2019-07-27 09:01 | Nephrology Progress Note ---
Date of Encounter: 07/27/19 Time of Encounter: 07:50 - Assessment and Plan (1) Acute kidney injury superimposed on chronic kidney disease Status: Acute SCr trending better without [employer] since coming off Roxane last week. On Sunday if the SCr continues to trend better, then I'd recommend removal of the temporary HD catheter which appeared well cared for with good adhesion of the Tegaderm on exam today (Sunday). Okay for Rocephin, which is not nephrotoxic. I answered all the pt's questions. The UA had granular casts noted, which strongly suggests ATN. Hx of hypokalemic: continue KCl. Will continue to follow with you on this complex pt who required a high degree of E/M and MDM; and I recommend following a renal protective/conservative strategy with strict I's and O's, daily weights, avoidance of nephrotoxic agents as able, renal diet, and renal dosing. Thank you. (2) Encephalopathy acute Status: Inactive (3) Hyperkalemia Status: Inactive (4) Elevated lactic acid level Status: Acute Subjective Principal diagnosis: elevated troponin Interval history: She reported feeling about the same, and did not report new uremic symptoms such as nausea, vomiting, diarrhea, or change in urine output. Objective - Vital Signs Vital signs: Vital Signs Temp Pulse Resp BP Pulse Ox 07/27/19 08:00 98.8 F 66 15 117/57 96 07/27/19 03:19 98.7 F 65 16 121/69 96 07/26/19 23:45 98.9 F 61 16 129/78 96 07/26/19 19:26 98.3 F 67 16 113/61 96 07/26/19 16:04 98.5 F 61 16 116/60 98 07/26/19 11:35 98.4 F 62 16 112/68 96 Intake and Output 07/26/19 07/27/19 07/27/19 23:59 07:59 15:59 Intake Total 1240 / 1720 0 / 0 Output Total 1149 625 / 625 Balance 90 / -330 -625 / -625 Intake: Oral 1240 / 1720 0 / 0 Output: Urine 1150 / 1150 0 / 0 Urine/Stool Mix 625 / 625 Other: Meal Dinner Percent of Meal Consumed 100% Stool Size Moderate Stool Consistency liquid loose Stool Characteristics Normal for Patient Stool Color Brown Brown Yellow # Voids 1 # Bowel Movements 1 1 Weight 124.9 kg Blood Glucose* 169 138 Patient Weight 07/27/19 23:59 Weight 124.9 kg - General Appearance Exam: General appearance: Present: well-developed, well-nourished, appears started age, obese EENT: Present: ATNC, PERRL, mucous membranes moist Neck: Present: supple Respiratory: Present: clear Cardiology: Present: no edema, regular rate, regular rhythm, normal S1, normal S2 Dialysis Vascular Access: Venous Catheter (right sided temporary HD catheter with dressin in place and C/D/I) Gastrointestinal: Present: normoactive bowel sounds, no tenderness, no guarding Integumentary: Present: chronic venous stasis Neurologic: Present: no focal deficit, no asterixis, alert and oriented x3 Musculoskeletal: Present: no cyanosis, no clubbing Psychiatric: Present: mood/affect appropriate, cooperative - Lab 07/28/19 04:55 07/28/19 04:55 Most recent lab results 07/27/19 05:00 Calcium 9.5 Consult Discharge Plan - Plan Instructions: Cephalexin (By mouth), Metoprolol (By mouth), Loperamide (By mouth), Glipizide (By mouth), Atorvastatin (By mouth) Referrals: Victor Hugo Burr MD [Partnered Physician] - (Web requested 07/28/2019) Rajni Levy CNP [Primary Care Provider] - 08/01/19 2:00 pm (Please follow up as schedule) Hadley Skelton CNP [Advanced Practice Nurse] - 08/04/19 10:30 am (Please follow up a schedule..) Joey Morales DO [Partnered Physician] - (Automatic Vulcanizing Lead Operator will call patient for a appt.) Prescriptions: GlipiZIDE [Glucotrol Xl] 2.5 mg PO DAILY 30 Days #30 tab.er.24 Prescription Printed Loperamide [Imodium] 2 mg PO Q4HR PRN #30 capsule PRN Reason: Diarrhea Prescription Printed cephALEXin [Keflex] 500 mg PO BID #6 capsule Prescription Printed Atorvastatin [Lipitor] 80 mg PO HS #60 tablet Prescription Printed Metoprolol [Lopressor] 25 mg PO BID #60 tablet Prescription Printed
[2019-07-28] MEDS: cefTRIAXone 2,000 MG in 0.9 % Sodium Chloride Mini Bag 100 ML IVPB SCH (03:28)
[2019-07-28 05:29] LABS: Potassium 3.6 mEq/L (3.5-5.1)
[2019-07-28 06:34] LABS: Basophils % 0.3 %; Eosinophils # 0.2 K/mcL (0.0-0.6); Eosinophils % 2.4 %; Hematocrit 27.8 % (35.3-44.9); Hemoglobin 8.9 g/dL (11.5-15.4); Immature Granulocytes % 0.6 % (0-4); Lymphocytes # 2.2 K/mcL (0.6-4.6); Lymphocytes % 22.6 %; Mean Corpuscular Hemoglobin 29.2 pg (28.0-33.3); Mean Corpuscular Volume 91.1 fL (83.0-100.0); Mean Platelet Volume 10.1 fL (9.4-12.4); Monocytes # 0.6 K/mcL (0.0-1.3); Monocytes % 6.1 %; Neutrophils # 6.6 K/mcL (1.6-8.9); Platelet Count 219 K/mcL (140-400); Red Blood Count 3.05 M/mcL (3.82-4.97); Red Cell Distribution Width 13.4 % (11.5-14.5); White Blood Count 9.7 K/mcL (4.3-11.1)
[2019-07-28] MEDS: Insulin LISPRO 300 UNITS/3 ML VIAL SQ SCH ×2 (07:55→11:59)
[2019-07-28] MEDS: Aspirin Enteric Coated 81 MG Tablet PO SCH (08:01)
[2019-07-28] MEDS: *HR* Enoxaparin 30 MG/0.3 ML SYRINGE SQ SCH (08:02)
[2019-07-28] MEDS: Topiramate 100 MG TABLET PO SCH (08:02)
[2019-07-28 11:47] VITALS: BP 114/55
--- NOTE | 2019-07-28 12:11 | Nephrology Progress Note ---
Date of Encounter: 07/28/19 Time of Encounter: 08:45 - Assessment and Plan (1) Acute kidney injury superimposed on chronic kidney disease Status: Acute SCr continues to improved in the setting of probable ATN (her original UA had granular casts noted, which strongly suggests ATN), and so it's okay to remove the temporary HD catheter today. Order placed. Recommend outpt follow up with her primary hydrometer finisher Dr. Comer in approx 2-5 weeks. Okay to d/c from a Nephro perspective. Recommend checking a BMP in about 1 week after discharge. Resumed her KCl as she has a hx of hypokalemic, which could be related to her chronic use of Topamax. Thank you. (2) Encephalopathy acute Status: Inactive (3) Hyperkalemia Status: Inactive (4) Elevated lactic acid level Status: Acute Subjective Principal diagnosis: elevated troponin Interval history: The patient was seen and examined earlier today, and she voiced happiness to her that her renal function was continuing to improve. She did not affirm having any new major complaints such as nausea, vomiting, diarrhea, chest pain, and she again affirm that her swelling had resolved Objective - Vital Signs Vital signs: Vital Signs Temp Pulse Resp BP Pulse Ox 07/28/19 11:39 99.4 F 57 16 114/55 97 07/28/19 07:40 99.4 F 58 16 117/71 96 07/28/19 04:26 98.3 F 65 18 121/75 98 07/27/19 19:33 98.8 F 76 15 128/79 97 Intake and Output 07/27/19 07/28/19 07/28/19 23:59 07:59 15:59 Intake Total 0 / 0 Output Total 300 / 925 400 / 400 Balance -300 / -805 -400 / -400 Intake: Oral 0 / 0 Output: Urine 300 / 300 400 / 400 Other: # Bowel Movements 1 Blood Glucose* 155 128 145 - General Appearance Exam: General appearance: Present: well-developed, well-nourished, appears started age, obese EENT: Present: ATNC, PERRL, mucous membranes moist Neck: Present: supple Respiratory: Present: clear Cardiology: Present: no edema, regular rate, regular rhythm, normal S1, normal S2 Dialysis Vascular Access: Venous Catheter (right sided temporary HD catheter with dressin in place and C/D/I) Gastrointestinal: Present: normoactive bowel sounds, no tenderness, no guarding Integumentary: Present: chronic venous stasis Neurologic: Present: no focal deficit, no asterixis, alert and oriented x3 Musculoskeletal: Present: no cyanosis, no clubbing Psychiatric: Present: mood/affect appropriate, cooperative - Lab 07/28/19 04:55 07/28/19 04:55 Most recent lab results 07/28/19 04:55 Calcium 9.0 Consult Discharge Plan - Plan Instructions: Cephalexin (By mouth), Metoprolol (By mouth), Loperamide (By mouth), Glipizide (By mouth), Atorvastatin (By mouth) Referrals: Victor Hugo Burr MD [Partnered Physician] - (Web requested 07/28/2019) Rajni Levy CNP [Primary Care Provider] - 08/01/19 2:00 pm (Please follow up as schedule) Hadley Skelton CNP [Advanced Practice Nurse] - 08/04/19 10:30 am (Please follow up a schedule..) Joey Morales DO [Partnered Physician] - (Ring Stamper will call patient for a appt.) Prescriptions: GlipiZIDE [Glucotrol Xl] 2.5 mg PO DAILY 30 Days #30 tab.er.24 Prescription Printed Loperamide [Imodium] 2 mg PO Q4HR PRN #30 capsule PRN Reason: Diarrhea Prescription Printed cephALEXin [Keflex] 500 mg PO BID #6 capsule Prescription Printed Atorvastatin [Lipitor] 80 mg PO HS #60 tablet Prescription Printed Metoprolol [Lopressor] 25 mg PO BID #60 tablet Prescription Printed
--- NOTE | 2019-07-28 12:31 | Discharge Summary ---
Orders not resulted at time of discharge: Pending orders 07/22/19 12:31 Complement Component 1Q Level Routine Date of Encounter: 07/28/19 Time of Encounter: 11:00 - Discharge Diagnosis (1) Acute renal failure Priority: Primary Status: Acute Assessment and Plan: 53 year old female who was recently discharged from our facility on 07/15/2019. Patient has a history of diabetes mellitus type 2, hypertension, hyperlipidemia, seizures, chronic kidney disease stage III, chronic pain, obesity. During her last admission she was admitted for altered mental status, with a blank stare. He had an extensive evaluation occluding urine drug screen at that time which was negative. She was noted to have a CK level and a benign 100s and acute kidney injury with a creatinine of 3.5 range. She was treated for urinary tract infection and on arrival to our facility at that time had generalized seizures. In by neurology and nephrology at this time. She had an EEG which showed generalized seizure disorder. Patient had been on Topamax 300 mg twice a day, and was having altered mental status from this and thus neurology decrease her Topamax to 100 mg twice a day. Patient was aggressively hydrated, her renal function improved back to near baseline at 1.8 creatinine, and her CK normalized. Pt was sent home to continue a course of Cefdinir for urinary tract infection. Pt came in with altered mental status and kidney failure possibly 2/2 to dehydration, sepsis , hypotension. She was started on dialysis per renal and broad spectrum antibiotics for sepsis possibly secondary to colitis/UTI. She was seen by neurology for possible seizure and was deemed to not be actively seizing. She improved with supportive care and antibiotics and is now alert and oriented x 3 and fully conversational. Her creatinine has been improving with adequate urine and output and her dialysis line has been taken out. She is to follow up with nephrology as an outpatient She also had elevated troponins which ay be secondary to demand ischemia vs NSTEMI. She was seen by cardiology who are holding off an a cath for now due to her DAMEON on CKD and recent renal failure. She has intermittent episodes of diarrhea which she reports is chronic. Stools GI and c diff testing were negative. She is to follow up with cardiology and GI as an outpatient. 35 minutes was spent discharging this patient Qualifiers: Acute renal failure type: unspecified Qualified Code(s): N17.9 - Acute kidney failure, unspecified (2) Encephalopathy acute Priority: Primary Status: Acute (3) NSTEMI (non-ST elevated myocardial infarction) Priority: Primary Status: Acute (4) Colitis Priority: Primary Status: Acute (5) Seizure Priority: Primary Status: Acute (6) Diabetes mellitus Priority: Primary Status: Chronic Qualifiers: Diabetes mellitus type: type 2 Diabetes mellitus buttermaker helper insulin use: without residential use Diabetes mellitus complication status: with kidney complications Diabetes mellitus complication detail: with chronic kidney disease Chronic kidney disease stage: stage 3 (moderate) Qualified Code(s): E11.22 - Type 2 diabetes mellitus with diabetic chronic kidney disease; N18.3 - Chronic kidney disease, stage 3 (moderate) (7) Morbid obesity Priority: Primary Status: Acute (8) Cellulitis Priority: Primary Status: Acute Qualifiers: Qualified Code(s): L03.90 - Cellulitis, unspecified (9) DVT prophylaxis Priority: Primary Status: Acute Hospital course: Ms. Pisano is a 53 year old female - Time Spent with Patient Total time spent providing and/or coordinating discharge services: - Discharge Medications Prescriptions: New cephALEXin [Keflex] 500 mg PO BID #6 capsule Atorvastatin [Lipitor] 80 mg PO HS #60 tablet Metoprolol [Lopressor] 25 mg PO BID #60 tablet Loperamide [Imodium] 2 mg PO Q4HR PRN #30 capsule PRN Reason: Diarrhea GlipiZIDE [Glucotrol Xl] 2.5 mg PO DAILY 30 Days #30 tab.er.24 Continued Vitamin B Complex [B Complex] 1 each PO DAILY [place]-3/Dha/Epa/Fish Oil [Fish Oil 1,000 mg Softgel] 2,000 mg PO DAILY Ascorbic Acid [Vitamin C] 1,000 mg PO DAILY Aspirin [Lo-Dose Aspirin EC] 81 mg PO DAILY Calcium Carbonate [Calcium] 600 mg PO BID Colesevelam HCl 1,875 mg PO BIDWM Dulaglutide [Trulicity] 1.5 mg SQ QWEEK Ferrous Sulfate [Iron] 325 mg PO DAILY Mag Hydrox/Aluminum Hyd/Simeth [Antacid Anti-Gas Liquid] 10 ml PO QID PRN PRN Reason: GAS RELIEF Naloxegol Oxalate [Movantik] 25 mg PO QAM Potassium Chloride [Klor-Con 10] 10 meq PO BID Pregabalin [Lyrica] 100 mg PO BID Sertraline [Zoloft] 50 mg PO DAILY Sertraline [Zoloft] 100 mg PO DAILY Topiramate [Topamax] 100 mg PO BID #60 tablet Montelukast [Singulair] 10 mg PO QPM OxyCODONE/APAP 10/325 [Percocet 10/325 MG] 1 tab PO Q6HR PRN PRN Reason: Pain Discontinued glyBURIDE [GlyBURIDE] 2.5 mg PO DAILY Metformin HCl [Glucophage] 1,000 mg PO BIDWM Home Medications: [place]-3/Dha/Epa/Fish Oil [Fish Oil 1,000 mg Softgel] 2,000 mg PO DAILY 01/02/17 [History] Vitamin B Complex [B Complex] 1 each PO DAILY 01/02/17 [History] Montelukast [Singulair] 10 mg PO QPM 10/16/17 [History] OxyCODONE/APAP 10/325 [Percocet 10/325 MG] 1 tab PO Q6HR PRN 10/16/17 [History] Ascorbic Acid [Vitamin C] 1,000 mg PO DAILY 07/13/19 [History] Aspirin [Lo-Dose Aspirin EC] 81 mg PO DAILY 07/13/19 [History] Calcium Carbonate [Calcium] 600 mg PO BID 07/13/19 [History] Colesevelam HCl 1,875 mg PO BIDWM 07/13/19 [History] Dulaglutide [Trulicity] 1.5 mg SQ QWEEK 07/13/19 [History] Ferrous Sulfate [Iron] 325 mg PO DAILY 07/13/19 [History] Mag Hydrox/Aluminum Hyd/Simeth [Antacid Anti-Gas Liquid] 10 ml PO QID PRN 07/13/19 [History] Naloxegol Oxalate [Movantik] 25 mg PO QAM 07/13/19 [History] Potassium Chloride [Klor-Con 10] 10 meq PO BID 07/13/19 [History] Pregabalin [Lyrica] 100 mg PO BID 07/13/19 [History] Sertraline [Zoloft] 50 mg PO DAILY 07/13/19 [History] Sertraline [Zoloft] 100 mg PO DAILY 07/13/19 [History] Topiramate [Topamax] 100 mg PO BID #60 tablet 07/15/19 [Rx] Atorvastatin [Lipitor] 80 mg PO HS #60 tablet 07/28/19 [Rx] GlipiZIDE [Glucotrol Xl] 2.5 mg PO DAILY 30 Days #30 tab.er.24 07/28/19 [Rx] Loperamide [Imodium] 2 mg PO Q4HR PRN #30 capsule 07/28/19 [Rx] Metoprolol [Lopressor] 25 mg PO BID #60 tablet 07/28/19 [Rx] cephALEXin [Keflex] 500 mg PO BID #6 capsule 07/28/19 [Rx] Allergies/Adverse Reactions: Allergy/AdvReac Type Severity Reaction Status Date / Time bupropion [From Wellbutrin] AdvReac Seizure Verified 07/15/19 10:48 latex AdvReac See Verified 07/15/19 10:48 Comments Date of admission: 07/21/19 17:41 Primary care physician: Rajni Levy CNP Consults: 07/21/19 18:59 Consult to Nephrology [CONS] Routine Consulting Provider: [facility] [place]/FELICIA/RENEA/MARLO Reason for Consult: dameon Time Notified: 18:59 Call Completed: Yes 07/22/19 07:09 Consult to Interventional Radiology [CONS] Stat Consulting Provider: Radiology Interventional Cols Reason for Consult: Temporary dialysis placement Call Completed: Yes 07/22/19 07:21 Consult to Pulmonology [CONS] Routine Consulting Provider: [facility] Reason for Consult: hypotension Call Completed: Yes 07/22/19 07:34 Consult to Pulmonology [CONS] Routine Consulting Provider: [facility] Reason for Consult: DAMEON, hypotension Time Notified: 07:35 Call Completed: Yes 07/22/19 08:52 Consult to Cardiology [CONS] Stat Comment: Consulting Provider: Cardiology [facility] Reason for Consult: Rapid onset hypotension with EKG changes Time Notified: 08:52 Call Completed: Yes 07/22/19 11:09 Consult to Surgery [CONS] Routine Consulting Provider: Acute Care Surgery Reason for Consult: Concern for ischemic colitis Time Notified: 11:10 Call Completed: Yes 07/22/19 11:43 Consult to Neurology [CONS] Routine Consulting Provider: [facility] Reason for Consult: concern for possible seizures contributing to AMS Call Completed: No 07/22/19 12:20 Consult to Invasive Line Access Team [CONS] Routine Reason for Consult: EPIV placement Line Type: EPIV PICC line indications: Limited vascular access 07/22/19 15:53 Consult to Interpret Exam [CONS] Routine Consulting Provider: Rene Fraga I Consult to Interpret Exam: Interpret EEG 07/24/19 07:48 Consult to Cardiac Rehabilitation-Phase1 [CONS] Routine Comment: Reason for Consult: NSTEMI Call Completed: No 07/25/19 01:29 dietary consult [Consult to Nutrition] [CONS] Routine Comment: Consulting Provider: NUTRITION Reason for Dietary Consult: Diet Education - Constitutional Vitals: Temp Pulse Resp BP Pulse Ox 99.4 F 57 16 114/55 97 07/28/19 11:39 07/28/19 11:39 07/28/19 11:39 07/28/19 11:39 07/28/19 11:39 Exam: General appearance: Present: A&O X 3, no acute distress Head exam: Present: normocephalic Respiratory exam: Present: CTAB. Absent: accessory muscle use, rales, rhonchi, wheezes Cardiovascular exam: Present: RRR, +S1, +S2. Absent: diastolic murmur, gallop, rubs, systolic murmur GI/Abdominal exam: Soft, NT, ND, +BS Extremities exam: Absent: pedal edema Neurological exam: Present: alert, oriented X3, no focal deficits. Absent: altered - Patient Status Disposition: Home, Self-Care Condition: Good - Discharge Instructions Follow Up With: Rajni Levy CNP [Primary Care Provider] - 08/01/19 2:00 pm (Please follow up as schedule)
[2019-07-28] MEDS ORDERED: cephALEXin 500 MG CAPSULE PO SCH (21:00)
== END 2019-07-28 15:22 | disposition home or self-care (01) | DRG 720 ==
LOC: ICNU 17:41 → 2ANU 07-25 21:00
PROVIDERS: ADMIT Internal Medicine; ATTEND Internal Medicine

== ENCOUNTER 2019-08-01 16:49 | Observation (INO) ==
[2019-08-01] MEDS ORDERED: Isovue-370 500 ML BOTTLE IVP ONE (17:47)
[2019-08-01 18:06] LABS: Basophils # 0.1 K/mcL (0.0-0.2); Basophils % 0.4 %; Eosinophils # 0.2 K/mcL (0.0-0.6); Eosinophils % 1.7 %; Hematocrit 33.5 % (35.3-44.9); Immature Granulocytes % 0.5 % (0-4); Lymphocytes # 3.7 K/mcL (0.6-4.6); Lymphocytes % 31.7 %; Mean Corpuscular HGB Conc 31.6 g/dL (31.6-35.5); Mean Corpuscular Hemoglobin 28.5 pg (28.0-33.3); Mean Corpuscular Volume 90.1 fL (83.0-100.0); Mean Platelet Volume 10.1 fL (9.4-12.4); Monocytes # 0.8 K/mcL (0.0-1.3); Monocytes % 6.9 %; Neutrophils # 6.8 K/mcL (1.6-8.9); Platelet Count 308 K/mcL (140-400); Red Blood Count 3.72 M/mcL (3.82-4.97); Red Cell Distribution Width 13.5 % (11.5-14.5); Segmented Neutrophils % 58.8 %; White Blood Count 11.5 K/mcL (4.3-11.1)
[2019-08-01 18:11] LABS: Hemoglobin 10.6 g/dL (11.5-15.4)
[2019-08-01 18:25] LABS: Calcium 9.9 mg/dL (8.6-10.3); Potassium 3.8 mEq/L (3.5-5.1)
[2019-08-01] MEDS ORDERED: Clindamycin 600 MG/50 ML 600 MG/50 ML IV.SOLN IVPB ONE (20:22)
[2019-08-01] MEDS ORDERED: *HR* Heparin 5,000 UNIT/ML VIAL IVP ONE (20:22)
[2019-08-01] MEDS ORDERED: *HR* Heparin 5,000 UNIT/ML VIAL IVP PRN ×2 (20:22)
[2019-08-01 23:57] LABS: Heparin anti-factor XA UFH 0.68 IU/mL (0.30-0.70); INR 1.1; Prothrombin Time 12.9 Seconds (9.4-12.1)
[2019-08-02] MEDS ORDERED: 0.9 % Sodium Chloride 250 ML ONE ×2 (00:27→21:25)
[2019-08-02] MEDS: Heparin 25,000 UNIT/250 ML D5W 25,000 UNIT/250 ML IV.SOLN IVC SCH ×2 (00:51→18:53)
[2019-08-02] MEDS ORDERED: Naloxone 0.4 MG/ML INJ IVP PRN (03:45)
[2019-08-02 06:46] LABS: Hematocrit 28.2 % (35.3-44.9); Hemoglobin 9.2 g/dL (11.5-15.4); Mean Corpuscular HGB Conc 32.6 g/dL (31.6-35.5); Mean Corpuscular Hemoglobin 29.7 pg (28.0-33.3); Mean Platelet Volume 10.2 fL (9.4-12.4); Platelet Count 269 K/mcL (140-400); Red Cell Distribution Width 13.6 % (11.5-14.5)
[2019-08-02 07:12] LABS: Magnesium 1.6 mg/dL (1.6-2.6); Phosphorous 4.5 mg/dL (2.7-4.5); Potassium 3.7 mEq/L (3.5-5.1); Troponin I 0.03 ng/mL (< 0.04)
[2019-08-02] MEDS ORDERED: Dextrose Gel 15 GM/37.5 ML TUBE PO PRN ×2 (07:19)
[2019-08-02] MEDS ORDERED: *HR* Dextrose 50 % in Water (Syg) 50 ML SYRINGE IVP PRN (07:19)
[2019-08-02] MEDS ORDERED: D5% in Water 1,000 ML IVC PRN (07:19)
[2019-08-02] MEDS: Insulin LISPRO 300 UNITS/3 ML VIAL SQ SCH ×5 (09:08→23:33)
[2019-08-02] MEDS ORDERED: Mag Hydrox/Al Hydrox/Simeth 30 ML UDC PO PRN (10:37)
[2019-08-02] MEDS ORDERED: Vancomycin 1 EACH in 0.9 % Sodium Chloride 250 ML IVPB SCH (12:00)
[2019-08-02] MEDS: Piperacillin/Tazobactam 3.375 GM in 0.9 % Sodium Chloride Mini Bag 100 ML IVPB SCH ×2 (13:39→21:06)
[2019-08-02] MEDS: Topiramate 100 MG TABLET PO SCH (21:07)
[2019-08-02] MEDS: Pregabalin 50 MG CAPSULE PO SCH (21:07)
[2019-08-03] MEDS: Piperacillin/Tazobactam 3.375 GM in 0.9 % Sodium Chloride Mini Bag 100 ML IVPB SCH ×3 (04:54→21:23)
[2019-08-03 06:13] LABS: Basophils % 0.5 %; Eosinophils # 0.2 K/mcL (0.0-0.6); Eosinophils % 3.2 %; Hematocrit 30.1 % (35.3-44.9); Hemoglobin 9.5 g/dL (11.5-15.4); Immature Granulocytes % 0.4 % (0-4); Lymphocytes # 2.4 K/mcL (0.6-4.6); Lymphocytes % 31.7 %; Mean Corpuscular HGB Conc 31.6 g/dL (31.6-35.5); Mean Corpuscular Hemoglobin 28.5 pg (28.0-33.3); Mean Corpuscular Volume 90.4 fL (83.0-100.0); Mean Platelet Volume 9.8 fL (9.4-12.4); Monocytes # 0.5 K/mcL (0.0-1.3); Monocytes % 7.2 %; Neutrophils # 4.3 K/mcL (1.6-8.9); Platelet Count 308 K/mcL (140-400); Red Blood Count 3.33 M/mcL (3.82-4.97); Red Cell Distribution Width 13.6 % (11.5-14.5); White Blood Count 7.5 K/mcL (4.3-11.1)
[2019-08-03 06:32] LABS: Calcium 9.4 mg/dL (8.6-10.3); Potassium 3.9 mEq/L (3.5-5.1)
[2019-08-03] MEDS: Pregabalin 50 MG CAPSULE PO SCH ×2 (09:54→21:24)
[2019-08-03] MEDS: Aspirin Enteric Coated 81 MG Tablet PO SCH (09:54)
[2019-08-03] MEDS: Topiramate 100 MG TABLET PO SCH ×2 (09:54→21:24)
[2019-08-03] MEDS: Insulin LISPRO 300 UNITS/3 ML VIAL SQ SCH ×4 (09:55→21:04)
[2019-08-03] MEDS: Heparin 25,000 UNIT/250 ML D5W 25,000 UNIT/250 ML IV.SOLN IVC SCH (12:12)
[2019-08-03] MEDS: Apixaban 5 MG TABLET PO SCH ×2 (12:12→21:24)
[2019-08-03] MEDS: *HR* OxyCODONE/APAP 10/325 TABLET PO PRN (22:26)
[2019-08-04] MEDS: Piperacillin/Tazobactam 3.375 GM in 0.9 % Sodium Chloride Mini Bag 100 ML IVPB SCH ×2 (04:20→12:57)
[2019-08-04] MEDS: *HR* OxyCODONE/APAP 10/325 TABLET PO PRN ×3 (04:25→21:12)
[2019-08-04 06:28] LABS: Hematocrit 29.3 % (35.3-44.9); Hemoglobin 9.3 g/dL (11.5-15.4); Mean Corpuscular HGB Conc 31.7 g/dL (31.6-35.5); Mean Corpuscular Hemoglobin 28.5 pg (28.0-33.3); Mean Corpuscular Volume 89.9 fL (83.0-100.0); Mean Platelet Volume 9.8 fL (9.4-12.4); Platelet Count 310 K/mcL (140-400); Red Blood Count 3.26 M/mcL (3.82-4.97); Red Cell Distribution Width 13.6 % (11.5-14.5); White Blood Count 8.2 K/mcL (4.3-11.1)
[2019-08-04 07:33] LABS: Calcium 9.5 mg/dL (8.6-10.3); Magnesium 1.6 mg/dL (1.6-2.6); Potassium 4.3 mEq/L (3.5-5.1)
[2019-08-04] MEDS: Insulin LISPRO 300 UNITS/3 ML VIAL SQ SCH ×3 (09:57→17:36)
[2019-08-04] MEDS: Topiramate 100 MG TABLET PO SCH ×2 (10:00→21:04)
[2019-08-04] MEDS: Aspirin Enteric Coated 81 MG Tablet PO SCH (10:00)
[2019-08-04] MEDS: Pregabalin 50 MG CAPSULE PO SCH (10:03)
[2019-08-04] MEDS: Apixaban 5 MG TABLET PO SCH ×2 (10:03→21:04)
[2019-08-04] MEDS: Pregabalin 75 MG CAPSULE PO SCH (21:04)
[2019-08-04] MEDS ORDERED: Aminoglycoside Consult 1 EACH MC ONE (21:13)
[2019-08-05] MEDS: Insulin LISPRO 300 UNITS/3 ML VIAL SQ SCH ×4 (02:20→17:14)
[2019-08-05] MEDS: *HR* OxyCODONE/APAP 10/325 TABLET PO PRN (03:23)
[2019-08-05 04:21] LABS: Calcium 9.2 mg/dL (8.6-10.3); Potassium 4.8 mEq/L (3.5-5.1)
[2019-08-05] MEDS: Pregabalin 75 MG CAPSULE PO SCH (09:46)
[2019-08-05] MEDS: Apixaban 5 MG TABLET PO SCH (09:47)
[2019-08-05] MEDS: Aspirin Enteric Coated 81 MG Tablet PO SCH (09:47)
[2019-08-05] MEDS: Topiramate 100 MG TABLET PO SCH (09:47)
[2019-08-05 15:41] VITALS: BP 109/62
[2019-08-13] MEDS ORDERED: Apixaban 5 MG TABLET PO SCH (09:00)
== END 2019-08-05 18:35 | disposition home or self-care (01) ==
LOC: 3ANU 16:49 → EMEROOARM 16:49 → SUATTDRO 21:12 → 3ANU 21:17
PROVIDERS: ADMIT Family Medicine; ATTEND Internal Medicine